=== PATIENT | male | born 1950 | race Two or more races ===

== ENCOUNTER 2017-09-14 17:37 | Emergency (ER) | payer BC, OTHER ==
[~2017-09-14] VITALS: Ht 162.6 cm; Wt 68.0 kg
[2017-09-14 17:45] VITALS: BP 165/91
[2017-09-14 18:27] LABS: BILIRUBIN, URINE NEGATIVE (NEGATIVE); COLOR,URINE RED; GLUCOSE, URINE (UA) 4+ (NEGATIVE); KETONES,URINE 1+ (NEGATIVE); LEUKOCYTE ESTERASE ,URINE 3+ (NEGATIVE); NITRITE,URINE NEGATIVE (NEGATIVE); PH,URINE 5 (4.5-8.0); PROTEIN,URINE 4+ (NEGATIVE); UROBILINOGEN,URINE NORMAL MG/DL (0.0-1.0)
[2017-09-14 18:30] LABS: APPEARANCE,URINE CLOUDY
[2017-09-14] MEDS ORDERED: Phenazopyridine 200mg tab ORAL ONE (19:00)
--- NOTE | 2017-09-14 19:12 | Emergency Room Report ---
History of Present Illness General Chief Complaint: Male Urogenital Problems Present Illness HPI 67-year-old male presents to the emergency department complaining of dysuria and scant hematuria since this morning. Patient denies fevers or chills. He denies low back pain. Patient denies penile discharge, swollen tender lymph nodes, testicular pain or swelling. Patient states he has a history of diabetes he takes both oral medications and insulin injections. Patient states that lately his sugar has been moderately high and that he typically is in the 200 range however he has gone up into the 300 range recently. He reports urinary frequency denies polydipsia. Denies hx of BPH. Patient denies abdominal pain, nausea, vomiting. Denies CP, Palpitations, LOC, AMS, dizziness, Changes in Vision, Sensation, paresthesias, or a sudden severe headache. (Gayla Uribe) Allergies: Coded Allergies: No Known Allergies (Verified , 09/15/17) Patient History Past Medical History: see triage record, DM Past Surgical History: none Pertinent Family History: none Reviewed Nursing Documentation: PMH: Agreed, PSxH: Agreed (Gayla Uribe) Nursing Documentation-PMH Hx Hypertension: Yes Hx Diabetes: Yes (Gayla Uribe.Viri) Review of Systems All Other Systems: negative except mentioned in HPI (Gayla Uribe) Physical Exam Vital Signs Date Time Temp Pulse Resp B/P (MAP) Pulse Ox O2 Delivery O2 Flow Rate FiO2 09/14/17 17:45 99.3 91 20 165/91 98 Room Air Sp02 EP Interpretation: reviewed, normal General Appearance: no apparent distress, alert, GCS 15, non-toxic Head: normocephalic, atraumatic ENT: hearing grossly normal, normal voice Neck: full range of motion Respiratory: lungs clear, normal breath sounds, speaking full sentences Cardiovascular #1: regular rate, rhythm Gastrointestinal: normal bowel sounds, non tender, soft Rectal: deferred Genitourinary: normal inspection, no CVA tenderness Musculoskeletal: back normal, gait/station normal, normal range of motion Neurologic: alert, oriented x3, responsive, motor strength/tone normal, sensory intact, normal gait, speech normal, grossly normal Psychiatric: judgement/insight normal Skin: normal color, no rash, warm/dry, well hydrated Lymphatic: no adenopathy (Gayla Uribe) Medical Decision Making PA Attestation Dr. bridges is my supervising Physician whom patient management has been discussed with. (Gayla Uribe) Medicare Attestation The history of Ibrahima Marina has been reviewed and management options for him have been examined and discussed by Bola Andersen. I have personally examined and interviewed the patient. (BOLA ANDERSEN M.D.) Diagnostic Impression: Primary Impression: UTI (urinary tract infection) Qualified Codes: N30.01 - Acute cystitis with hematuria Additional Impression: Elevated glucose level ER Course 67-year-old male presents to the emergency department complaining of dysuria and scant hematuria since this morning. Patient denies fevers or chills. He denies low back pain. Patient denies penile discharge, swollen tender lymph nodes, testicular pain or swelling. Patient states he has a history of diabetes he takes both oral medications and insulin injections. Patient states that lately his sugar has been moderately high and that he typically is in the 200 range however he has gone up into the 300 range recently. He reports urinary frequency denies polydipsia. Denies hx of BPH. Patient denies abdominal pain, nausea, vomiting. Denies CP, Palpitations, LOC, AMS, dizziness, Changes in Vision, Sensation, paresthesias, or a sudden severe headache. Ddx considered but are not limited to UTi , Pyelo, STI, Stone, Cystitis, urethritis just to name a few. Vital signs: are WNL, pt. is afebrile H&PE are most consistent with UTI ORDERS: - UA labs are attached --Positive of Infection. with glucosuria and proteinuria consistent with poorly controlled DM. - accuCheck: 265 ED INTERVENTIONS: -Pyridium PO DISCHARGE: At this time pt. is stable for d/c to home. Will provide printed patient care instructions, and any necessary prescriptions. Care plan and follow up instructions have been discussed with the patient prior to discharge. Labs Test 09/14/17 17:30 Urine Color Red Urine Appearance Cloudy Urine pH 5 (4.5-8.0) Urine Specific [place] 1.010 (1.005-1.035) Urine Protein 4+ (NEGATIVE) Urine Glucose (UA) 4+ (NEGATIVE) Urine Ketones 1+ (NEGATIVE) Urine Occult Blood 5+ (NEGATIVE) Urine Nitrite Negative (NEGATIVE) Urine Bilirubin Negative (NEGATIVE) Urine Urobilinogen Normal MG/DL (0.0-1.0) Urine Leukocyte Esterase 3+ (NEGATIVE) Urine RBC 10-15 /HPF (0 - 0) Urine WBC 5-10 /HPF (0 - 0) Urine Squamous Epithelial Cells None /LPF (NONE/OCC) Urine Bacteria Moderate /HPF (NONE) (Gayla Uribe) Last Vital Signs Date Time Temp Pulse Resp B/P (MAP) Pulse Ox O2 Delivery O2 Flow Rate FiO2 09/14/17 17:45 99.3 61 20 165/91 98 Room Air (Gayla Uribe) Disposition: HOME, SELF-CARE Condition: Stable Scripts Phenazopyridine Hcl* (PYRIDIUM*) 200 Mg Tablet 200 MG ORAL THREE TIMES A DAY for 3 Days, #9 TAB 0 Refills Prov: Gayla Uribe 09/14/17 Cephalexin* (KEFLEX*) 500 Mg Capsule 500 MG ORAL EVERY 12 HOURS for 7 Days, #14 CAP 0 Refills Prov: Gayla Uribe 09/14/17 Referrals: NON PHYSICIAN (PCP) Patient Instructions: Urinary Tract Infection Additional Instructions: Take medications as directed. Follow up with a Primary Care Provider in 3-5 days, even if your symptoms have resolved. TO EVALUATE YOU FOR YOUR CONSISTENTLY ELEVATED BLOOD GLUCOSE LEVELS Keep a log daily of your Sugar Measurements to take with you to your follow up appointment ! --Please review list of primary care clinics, if you do not already have a primary care provider Return sooner to ED if new symptoms occur, or current symptoms become worse. - Please note that this Emergency Department Report was dictated using [employer] hoop driver technology software, occasionally this can lead to erroneous entry secondary to interpretation by the dictation equipment. Gayla Uribe Sep 14, 2017 19:12 BOLA ANDERSEN M.D. Sep 15, 2017 12:44
[2017-09-14] MEDS ORDERED: CEPHALEXIN500 MG ORAL (19:13)
[2017-09-14] MEDS ORDERED: PHENAZOPYRIDIN200 MG ORAL (19:13)
== END 2017-09-14 19:20 | disposition home or self-care (01) ==
LOC: EMR 18:37 → MERGE 18:37 → EMR 19:20
DX: N39.0 Urinary tract infection, site not specified (principal); E11.65 Type 2 diabetes mellitus with hyperglycemia; R31.9 Hematuria, unspecified; I10 Essential (primary) hypertension
CPT/HCPCS: 81003; 82962; 87086; 87181; 99283

== ENCOUNTER 2018-01-05 13:23 | Inpatient (IN) | payer BC, OTHER ==
[~2018-01-05] VITALS: Ht 162.6 cm; Wt 78.0 kg
[~2018-01-05 13:23] MED LIST: CEPHALEXIN500 MG ORAL; PHENAZOPYRIDIN200 MG ORAL
[2018-01-05] MEDS ORDERED: FLOMAX0.4 MG ORAL (13:51)
[2018-01-05] MEDS ORDERED: ASPIRIN81 MG ORAL (13:51)
[2018-01-05] MEDS ORDERED: DITROPAN10 MG ORAL (13:51)
[2018-01-05] MEDS ORDERED: VITAMIN D31000 UNI4 PO (13:51)
[2018-01-05] MEDS ORDERED: ATENOLOL50 MG ORAL (13:51)
[2018-01-05] MEDS ORDERED: LYRICA75 M1 ORAL (13:53)
[2018-01-05] MEDS ORDERED: METFORMIN HCL1000 M1 ORAL (13:53)
[2018-01-05] MEDS ORDERED: TUMS500 MG ORAL (13:53)
[2018-01-05] MEDS ORDERED: ISORDIL40 MG ORAL (13:53)
[2018-01-05] MEDS ORDERED: ATORVASTATIN CA20 MG ORAL (13:53)
[2018-01-05] MEDS ORDERED: JANUVIA25 MG ORAL (13:54)
[2018-01-05] MEDS ORDERED: AMLODIPINE BESYL5 MG ORAL (13:54)
[2018-01-05] MEDS ORDERED: LISINOPRIL20 MG ORAL (13:54)
[2018-01-05] MEDS ORDERED: LUMIGAN2.5 ML BOTH EYES (13:56)
[2018-01-05] MEDS ORDERED: TRUSOPT10 ML BOTH EYES (13:56)
[2018-01-05] MEDS ORDERED: OMEGA 3 1,0001 EACH PO (13:56)
[2018-01-05] MEDS ORDERED: AZELASTINE HCL6 ML OP (13:56)
[2018-01-05] MEDS ORDERED: Sodium Chloride 500ML 500 ML IV ONE (14:07)
[2018-01-05] MEDS ORDERED: Acetaminophen 500mg (ES) tab ORAL ONE (14:15)
[2018-01-05 14:27] VITALS: BP 137/51
--- NOTE | 2018-01-05 14:27 | Diagnostic Imaging Report ---
Indication: Cough Comparison: None A single view chest radiograph was obtained. Findings: Minimal atelectasis present at the lung bases. Heart size is normal. Lung volumes are slightly low. The bones appear mildly osteopenic. IMPRESSION: Mild basal atelectasis
[2018-01-05 14:28] LABS: HEMATOCRIT 34.3 % (42.0-52.0); HEMOGLOBIN 11.5 G/DL (14.2-18.0); MEAN CORPUSCULAR VOLUME 84 FL (80-99); PLATELET COUNT 234 K/UL (150-450); RED CELL DISTRIBUTION WIDTH 12.4 % (11.6-14.8); WHITE BLOOD COUNT 10.6 K/UL (4.8-10.8)
[2018-01-05 14:44] LABS: ANION GAP 9 mmol/L (5-15); BLOOD UREA NITROGEN 22 mg/dL (7-18); CALCIUM 8.9 MG/DL (8.5-10.1); CARBON DIOXIDE 25 MMOL/L (21-32); CHLORIDE 100 MMOL/L (98-107); CREATININE 1.1 MG/DL (0.55-1.30); POTASSIUM 3.3 MMOL/L (3.5-5.1); SODIUM 134 MMOL/L (136-145)
[2018-01-05 14:58] LABS: ALANINE AMINOTRANSFERASE 40 U/L (12-78); ALBUMIN 2.5 G/DL (3.4-5.0); ALBUMIN/GLOBULIN RATIO 0.5 (1.0-2.7); ALKALINE PHOSPHATASE 191 U/L (46-116); ASPARTATE AMINO TRANSFERASE 43 U/L (15-37); BILIRUBIN,TOTAL 1.4 MG/DL (0.2-1.0); CKMB 3.9 NG/ML (0.0-3.6); CREATINE KINASE 135 U/L (26-308)
[2018-01-05 15:40] LABS: INR 1.2 (0.9-1.1)
[2018-01-05 15:44] LABS: BILIRUBIN,DIRECT 0.5 MG/DL (0.0-0.3)
--- NOTE | 2018-01-05 15:51 | Emergency Room Report ---
History of Present Illness General Chief Complaint: Fever Source: Patient Present Illness HPI 67-year-old male presents ED for evaluation. Patient complaining of weakness, chills, cough, shortness of breath 1 week. Patient febrile in triage. Denies any chest pain. Patient states that he also had a procedure done by urologist a few weeks ago as outpatient. They put a camera "up there". States that he has had pain with urination since. Denies flank pain. Denies nausea or vomiting. No other aggravating relieving factors. Denies any other associated symptoms Allergies: Coded Allergies: No Known Allergies (Verified , 09/15/17) Patient History Past Medical History: DM Past Surgical History: none Pertinent Family History: none Social History: Denies: smoking, alcohol use, drug use Immunizations: UTD Reviewed Nursing Documentation: PMH: Agreed; PSxH: Agreed Nursing Documentation-PMH Past Medical History: No History, Except For Hx Cardiac Problems: No Hx Hypertension: Yes Hx Pacemaker: No Hx Asthma: No Hx COPD: No Hx Diabetes: Yes Hx Cancer: No Hx Gastrointestinal Problems: No Hx Dialysis: No Hx Neurological Problems: No Hx Cerebrovascular Accident: No Hx Seizures: No Review of Systems All Other Systems: negative except mentioned in HPI Physical Exam Vital Signs Date Time Temp Pulse Resp B/P (MAP) Pulse Ox O2 Delivery O2 Flow Rate FiO2 01/05/18 13:42 102.2 81 16 115/61 89 Room Air 102.2 01/05/18 14:27 2.0 Sp02 EP Interpretation: reviewed, normal General Appearance: no apparent distress, alert, GCS 15, non-toxic Head: normocephalic, atraumatic Eyes: bilateral eye normal inspection, bilateral eye PERRL ENT: hearing grossly normal, normal pharynx, no angioedema, normal voice Neck: full range of motion, supple/symm/no masses Respiratory: chest non-tender, normal breath sounds, crackles, speaking full sentences Cardiovascular #1: regular rate, rhythm, no edema Cardiovascular #2: 2+ carotid (R), 2+ carotid (L), 2+ radial (R), 2+ radial (L) , 2+ dorsalis pedis (R), 2+ dorsalis pedis (L) Gastrointestinal: normal bowel sounds, non tender, soft, non-distended, no guarding, no rebound Rectal: deferred Genitourinary: normal inspection, no CVA tenderness Musculoskeletal: back normal, gait/station normal, normal range of motion, non- tender Neurologic: alert, oriented x3, responsive, motor strength/tone normal, sensory intact, speech normal Psychiatric: judgement/insight normal, memory normal, mood/affect normal, no suicidal/homicidal ideation Reflexes: 3+ bicep (R), 3+ bicep (L), 3+ tricep (R), 3+ tricep (L), 3+ knee (R) , 3+ knee (L) Skin: normal color, no rash, warm/dry, well hydrated Lymphatic: no adenopathy Procedures Critical Care Time Critical Care Time i. I feel this is a highly complex case requiring extensive working including EKG/Rhythm strip, Xray/CT/US, Blood/urine lab work, repeat exams while in ED, and administration of strong opiates/narcotics for pain control, admission to hospital or close patient follow up. Total time: 30 min bedside evaluation and treatment excludes procedures (EKG). Reason for critical care: SOB, elevated troponin Possible complications: hypotension, hypertension, FL, shock, arrhythmias, metabolic acidosis, end organ damage, respiratory failure. Interventions: labs, ivfs, tylenol, ekg, cxr. Course: patient here with fever, sob. cxr shows ateletasis. trop > 2. BNP elevated. given aspirin Consultations: nursing staff, EMS, family Performed by: Dr Andersen Tolerated well condition = serious j. because of unstable vital signs this patient had a condition that could potentially threaten life or limb. I feel this is a critical patient who required my full attention while patient was considered critical. Total Critical Care Time excluding procedures was greater than 35 minutes Medical Decision Making Diagnostic Impression: Primary Impression: Fever Qualified Codes: R50.9 - Fever, unspecified Additional Impressions: SOB (shortness of breath) Elevated troponin ER Course Hospital Course 67-year-old male presents ED complaining of fever, shortness of breath. Painful urination Differential diagnoses include: FL/unstable angina, contusion, muscle strain, PTX, rib fracture Clinical course Patient placed on stretcher. on direct marketing analyst. After initial history and physical I ordered labs, EKG, chest x-ray, UA labs reviewed- no leukocytosis, hb/hct stable,electrolyets ok, trop 2.4, BNP elevated EKG - NSR, no acute ischemic changes inteprreted by me Chest x-ray- atelectasis Patient denies any chest pain. Patient unable to provide urine. Schroeder catheter placed Given aspirin and Plavix. Given antibiotics. Case discussed with Dr. Priest and he agreed to accept the patient to his service for further care and support I. I feel this is a highly complex case requiring extensive working including EKG/Rhythm strip, Xray/CT/US, Blood/urine lab work, repeat exams while in ED, and administration of strong opiates/narcotics for pain control, admission to hospital or close patient follow up. Diagnosis - fever, SOB, elevated troponin admitted to telemetry in serious condition Labs Test 01/05/18 14:14 01/05/18 14:15 01/05/18 14:34 White Blood Count 10.6 K/UL (4.8-10.8) Red Blood Count 4.10 M/UL (4.70-6.10) Hemoglobin 11.5 G/DL (14.2-18.0) Hematocrit 34.3 % (42.0-52.0) Mean Corpuscular Volume 84 FL (80-99) Mean Corpuscular Hemoglobin 28.0 PG (27.0-31.0) Mean Corpuscular Hemoglobin Concent 33.4 G/DL (32.0-36.0) Red Cell Distribution Width 12.4 % (11.6-14.8) Platelet Count 234 K/UL (150-450) Mean Platelet Volume 7.0 FL (6.5-10.1) Neutrophils (%) (Auto) % (45.0-75.0) Lymphocytes (%) (Auto) % (20.0-45.0) Monocytes (%) (Auto) % (1.0-10.0) Eosinophils (%) (Auto) % (0.0-3.0) Basophils (%) (Auto) % (0.0-2.0) Differential Total Cells Counted 100 Neutrophils % (Manual) 86 % (45-75) Lymphocytes % (Manual) 5 % (20-45) Monocytes % (Manual) 3 % (1-10) Eosinophils % (Manual) 0 % (0-3) Basophils % (Manual) 0 % (0-2) Band Neutrophils 6 % (0-8) Platelet Estimate Adequate Platelet Morphology Normal Red Blood Cell Morphology Normal Sodium Level 134 MMOL/L (136-145) Potassium Level 3.3 MMOL/L (3.5-5.1) Chloride Level 100 MMOL/L (98-107) Carbon Dioxide Level 25 MMOL/L (21-32) Anion Gap 9 mmol/L (5-15) Blood Urea Nitrogen 22 mg/dL (7-18) Creatinine 1.1 MG/DL (0.55-1.30) Estimat Glomerular Filtration Rate > 60 mL/min (>60) Glucose Level 166 MG/DL (74-106) Calcium Level 8.9 MG/DL (8.5-10.1) Total Bilirubin 1.4 MG/DL (0.2-1.0) Direct Bilirubin 0.5 MG/DL (0.0-0.3) Aspartate Amino Transf (AST/SGOT) 43 U/L (15-37) Alanine Aminotransferase (ALT/SGPT) 40 U/L (12-78) Alkaline Phosphatase 191 U/L (46-116) Total Creatine Kinase 135 U/L (26-308) Creatine Kinase MB 3.9 NG/ML (0.0-3.6) Creatine Kinase MB Relative Index 2.8 Troponin I 2.492 ng/mL (0.000-0.056) Pro-B-Type Natriuretic Peptide 3404 pg/mL (0-125) Total Protein 7.2 G/DL (6.4-8.2) Albumin 2.5 G/DL (3.4-5.0) Globulin 4.7 g/dL Albumin/Globulin Ratio 0.5 (1.0-2.7) Prothrombin Time 12.3 SEC (9.30-11.50) Prothromb Time International Ratio 1.2 (0.9-1.1) Activated Partial Thromboplast Time 31 SEC (23-33) Lactic Acid Level 2.40 mmol/L (0.66-2.22) EKG Diagnostic Results Rate: normal Rhythm: NSR ST Segments: no acute changes ASA given to the pt in ED: Yes Rhythm Strip Diag. Results EP Interpretation: yes Rhythm: NSR, no PVC's, no ectopy Chest X-Ray Diagnostic Results Chest X-Ray Diagnostic Results : Chest X-Ray Ordered: Yes # of Views/Limited/Complete: 1 View Indication: Shortness of Breath EP Interpretation: Yes Interpretation: no consolidation, no pneumothorax, no acute cardiopulmonary disease, other - bibasilar atelectasis Impression: Other - atelectasis Electronically Signed by: Electronically signed by Bola Andersen MD Last Vital Signs Date Time Temp Pulse Resp B/P (MAP) Pulse Ox O2 Delivery O2 Flow Rate FiO2 01/05/18 14:58 101.8 01/05/18 14:27 79 24 137/51 96 Nasal Cannula 2.0 Status: improved Disposition: ADMITTED INPATIENT Condition: Serious Bola Andersen MD January 05, 2018 15:51
[2018-01-05 17:02] LABS: APPEARANCE,URINE CLEAR; BILIRUBIN, URINE NEGATIVE (NEGATIVE); GLUCOSE, URINE (UA) 4+ (NEGATIVE); KETONES,URINE 1+ (NEGATIVE); LEUKOCYTE ESTERASE ,URINE 1+ (NEGATIVE); NITRITE,URINE NEGATIVE (NEGATIVE); PH,URINE 5 (4.5-8.0); PROTEIN,URINE 2+ (NEGATIVE); UROBILINOGEN,URINE 4 MG/DL (0.0-1.0)
[2018-01-05] MEDS ORDERED: Heparin 25,000u/D5W 500ml 500 ML IV SCH (17:15)
[2018-01-05 17:22] LABS: COLOR,URINE YELLOW
[2018-01-05] MEDS ORDERED: Oxybutynin 5mg tab ORAL SCH (18:00)
[2018-01-05] MEDS ORDERED: Dorzolamide 2% 10ml Btl BOTH EYES SCH (18:00)
[2018-01-05] MEDS ORDERED: metFORMIN 500mg tab ORAL SCH (18:00)
[2018-01-05 18:02] VITALS: BP 112/51
[2018-01-05 18:44] VITALS: BP 149/87
--- NOTE | 2018-01-05 18:45 | History and Physical Report ---
DATE OF ADMISSION: 01/05/2018 CHIEF COMPLAINT: Short of breath and fever. HISTORY OF PRESENT ILLNESS: The patient is a 67-year-old man who came to the emergency department from home. Apparently he had a cystoscopy three days ago and has had dysuria since then. Yesterday he was feeling fine but today he developed shortness of breath in the morning that lasted several hours, this is associated with shaking chills, fever, vomiting and profuse diaphoresis. He came to the emergency department and was evaluated. He was found to have a negative x-ray and normal white blood count but temperature 102 and elevated troponin. He has no chest pain or history of cardiac disease. PAST MEDICAL HISTORY: Diabetes, hypertension,hyperlipidemia, BPH, neuropathy, gallstones with history of pancreatitis. ALLERGIES: None. MEDICATIONS: Include insulin, amlodipine, aspirin, atenolol, atorvastatin, Keflex, vitamins, eyedrops for glaucoma, Isordil, lisinopril, metformin, oxybutynin, Pyridium, Lyrica, Januvia, Flomax. REVIEW OF SYSTEMS: He has no headaches or seizures. No visual difficulty. No chest pain. He had shortness of breath. There is slight dry cough. He has no diarrhea but has nausea and vomiting. He has no knowledge of any kidney or liver disorder. He does have difficulty urinating. There is no ankle edema. PHYSICAL EXAMINATION: GENERAL: The patient is alert and responds appropriately. He is overweight. VITAL SIGNS: Temperature was 102.2 and came down to 101.1 and now 99.4. Other vital signs are normal. He is not tachycardic. HEENT: Head is normocephalic. SKIN: Profusely diaphoretic. NECK: No jugular venous distention. CHEST: Clear CARDIAC: Rhythm is regular. ABDOMEN: Soft and nontender. Liver and spleen not enlarged. EXTREMITIES: No clubbing, cyanosis, or edema. LABORATORY STUDIES: Showed urinalysis is pending (obtained by in- and-out catheter as he could not void). White count is 10,600, hemoglobin 11.5. Sodium 134, potassium 3.3, creatinine 1.1, blood sugar 166. Lactic elevated at 2.4. Bilirubin elevated 1.4. Alkaline phosphatase 191. Troponin is elevated at 2.5. Natriuretic peptide elevated at 3404. Coagulation is normal. Chest x-rays showed minimal atelectasis. EKG shows no ST or T-wave changes and no Q-waves with sinus rhythm noted IMPRESSION: 1. Urinary sepsis. 2. Acute myocardial infarction. 3. Diabetes. 4. Hypertension. 5. Hyperlipidemia. PLAN: The patient will be admitted to tele telemetry. Cardiology and Infectious Diseases have been called. Antibiotics and fluids will be given. He has been given aspirin and Plavix already. Cadence Priest M.D. DR: Laure JOB#: [id number] CC: James Domingo M.D.; Fax#: [phone] CADENCE PRIEST M.D.; FAX#: [phone]
--- NOTE | 2018-01-05 19:00 | Infectious Diseases Prog Note ---
Assessment/Plan Assessment/Plan Full consult dictated: A) 1) sepsis, fevers, chills, sweats, likely uti/pyelonephritis, rule out other , sob, abnormal LFT's, ? viral, dysuria, elevated lactic acid 2) s/p recent cystoscopy 3) pmh noted 4) allergies - negative P) 1) zosyn and vancomycin 2) check cultures, labs, chest x-ray, abdominal ultrasound 3) d/w Dr. Priest 4) thank you Subjective Allergies: Coded Allergies: No Known Allergies (Verified , 09/15/17) Objective Vital Signs Last 24 Hour Vital Signs Date Time Temp Pulse Resp B/P (MAP) Pulse Ox O2 Delivery O2 Flow Rate FiO2 01/05/18 18:44 96.4 62 18 149/87 94 Room Air 96.4 01/05/18 18:02 95.8 64 19 112/51 96 Nasal Cannula 2.0 95.8 01/05/18 16:10 99.4 01/05/18 14:58 101.8 01/05/18 14:27 101.8 79 24 137/51 96 Nasal Cannula 2.0 101.8 01/05/18 13:42 102.2 81 16 115/61 89 Room Air 102.2 Height (Feet): 5 Height (Inches): 4.00 Weight (Pounds): 160 Microbiology Date/Time Source Procedure Growth Status 01/05/18 14:30 Nasal Nares Influenza Types A,B Antigen ([facility]) - Final Complete Laboratory Tests Test 01/05/18 14:14 01/05/18 14:15 01/05/18 14:34 01/05/18 16:30 White Blood Count 10.6 K/UL (4.8-10.8) Red Blood Count 4.10 M/UL (4.70-6.10) L Hemoglobin 11.5 G/DL (14.2-18.0) L Hematocrit 34.3 % (42.0-52.0) L Mean Corpuscular Volume 84 FL (80-99) Mean Corpuscular Hemoglobin 28.0 PG (27.0-31.0) Mean Corpuscular Hemoglobin Concent 33.4 G/DL (32.0-36.0) Red Cell Distribution Width 12.4 % (11.6-14.8) Platelet Count 234 K/UL (150-450) Mean Platelet Volume 7.0 FL (6.5-10.1) Neutrophils (%) (Auto) % (45.0-75.0) Lymphocytes (%) (Auto) % (20.0-45.0) Monocytes (%) (Auto) % (1.0-10.0) Eosinophils (%) (Auto) % (0.0-3.0) Basophils (%) (Auto) % (0.0-2.0) Differential Total Cells Counted 100 Neutrophils % (Manual) 86 % (45-75) H Lymphocytes % (Manual) 5 % (20-45) L Monocytes % (Manual) 3 % (1-10) Eosinophils % (Manual) 0 % (0-3) Basophils % (Manual) 0 % (0-2) Band Neutrophils 6 % (0-8) Platelet Estimate Adequate Platelet Morphology Normal Red Blood Cell Morphology Normal Sodium Level 134 MMOL/L (136-145) L Potassium Level 3.3 MMOL/L (3.5-5.1) L Chloride Level 100 MMOL/L (98-107) Carbon Dioxide Level 25 MMOL/L (21-32) Anion Gap 9 mmol/L (5-15) Blood Urea Nitrogen 22 mg/dL (7-18) H Creatinine 1.1 MG/DL (0.55-1.30) Estimat Glomerular Filtration Rate > 60 mL/min (>60) Glucose Level 166 MG/DL (74-106) H Calcium Level 8.9 MG/DL (8.5-10.1) Total Bilirubin 1.4 MG/DL (0.2-1.0) H Direct Bilirubin 0.5 MG/DL (0.0-0.3) H Aspartate Amino Transf (AST/SGOT) 43 U/L (15-37) H Alanine Aminotransferase (ALT/SGPT) 40 U/L (12-78) Alkaline Phosphatase 191 U/L (46-116) H Total Creatine Kinase 135 U/L (26-308) Creatine Kinase MB 3.9 NG/ML (0.0-3.6) H Creatine Kinase MB Relative Index 2.8 Troponin I 2.492 ng/mL (0.000-0.056) Pro-B-Type Natriuretic Peptide 3404 pg/mL (0-125) H Total Protein 7.2 G/DL (6.4-8.2) Albumin 2.5 G/DL (3.4-5.0) L Globulin 4.7 g/dL Albumin/Globulin Ratio 0.5 (1.0-2.7) L Prothrombin Time 12.3 SEC (9.30-11.50) H Prothromb Time International Ratio 1.2 (0.9-1.1) H Activated Partial Thromboplast Time 31 SEC (23-33) Lactic Acid Level 2.40 mmol/L (0.66-2.22) H Urine Color Yellow Urine Appearance Clear Urine pH 5 (4.5-8.0) Urine Specific [place] 1.015 (1.005-1.035) Urine Protein 2+ (NEGATIVE) H Urine Glucose (UA) 4+ (NEGATIVE) H Urine Ketones 1+ (NEGATIVE) H Urine Occult Blood 1+ (NEGATIVE) H Urine Nitrite Negative (NEGATIVE) Urine Bilirubin Negative (NEGATIVE) Urine Urobilinogen 4 MG/DL (0.0-1.0) H Urine Leukocyte Esterase 1+ (NEGATIVE) H Urine RBC 2-4 /HPF (0 - 0) H Urine WBC 2-4 /HPF (0 - 0) Urine Squamous Epithelial Cells Occasional /LPF Urine Amorphous Sediment Few /LPF (NONE) H Urine Bacteria Occasional /HPF (NONE) Test 01/05/18 18:00 Lactic Acid Level 1.10 mmol/L (0.66-2.22) Current Medications Medications (Trade) Dose Ordered Sig/Tyrell Route PRN Reason Start Time Stop Time Status Last Admin Dose Admin Amlodipine Besylate (Norvasc) 5 mg DAILY ORAL 01/06/18 09:00 02/05/18 08:59 UNV Aspirin (ASA) 81 mg DAILY ORAL 01/06/18 09:00 02/05/18 08:59 UNV Atenolol (Tenormin) 50 mg DAILY ORAL 01/06/18 09:00 02/05/18 08:59 UNV Atorvastatin Calcium (Lipitor) 20 mg BEDTIME ORAL 01/05/18 21:00 02/04/18 20:59 UNV Calcium Carbonate (Tums) 600 mg BID PRN ORAL HEARTBURN 01/05/18 17:15 02/04/18 17:14 UNV Dextrose (Dextrose 50%) 25 ml STAT PRN IV Hypoglycemia 01/05/18 17:15 02/04/18 17:14 UNV Dextrose (Dextrose 50%) 25 ml STAT PRN IV Hypoglycemia 01/05/18 17:15 02/04/18 17:14 UNV Dextrose (Dextrose 50%) 50 ml STAT PRN IV Hypoglycemia 01/05/18 17:15 02/04/18 17:14 UNV Dextrose (Dextrose 50%) 50 ml STAT PRN IV Hypoglycemia 01/05/18 17:15 02/04/18 17:14 UNV Dorzolamide HCl (Trusopt) 1 drop TID BOTH EYES 01/05/18 18:00 02/04/18 17:59 UNV Famotidine (Pepcid) 40 mg BEDTIME ORAL 01/05/18 21:00 02/04/18 20:59 UNV Lisinopril (Prinivil) 40 mg DAILY ORAL 01/06/18 09:00 02/05/18 08:59 UNV Metformin HCl (Glucophage) 1,000 mg BID ORAL 01/05/18 18:00 02/04/18 17:59 UNV Ondansetron HCl (Zofran) 4 mg Q6H PRN IVP Nausea & Vomiting 01/05/18 17:15 02/04/18 17:14 UNV Oxybutynin Chloride (Ditropan) 5 mg BID ORAL 01/05/18 18:00 02/04/18 17:59 UNV Potassium Chloride 20 meq/ Sodium Chloride 1,010 ml @ 100 mls/hr Q10H6M IVLG 01/05/18 18:09 02/04/18 18:08 UNV Pregabalin (Lyrica) 150 mg DAILY ORAL 01/06/18 09:00 02/05/18 08:59 UNV Sitagliptin Phosphate (Januvia) 50 mg DAILY ORAL 01/06/18 09:00 02/05/18 08:59 UNV Tamsulosin HCl (Flomax) 0.4 mg DAILY ORAL 01/06/18 09:00 02/05/18 08:59 UNV TRES AL January 05, 2018 19:00
[2018-01-05] MEDS ORDERED: Tums 500mg ORAL PRN (19:04)
[2018-01-05 20:00] VITALS: BP 154/78
[2018-01-05] MEDS ORDERED: Vancomycin 1250mg/D5W 250ml IVPB SCH (20:00)
[2018-01-05 20:57] LABS: AMYLASE 17 U/L (25-115)
--- NOTE | 2018-01-05 21:01 | Consultation ---
DATE OF CONSULTATION: 01/05/2018 INFECTIOUS DISEASE CONSULTATION CONSULTING PHYSICIAN: James Domingo M.D. REFERRING PHYSICIAN: Shreyas Priest M.D. REASON FOR CONSULTATION: Sepsis, urinary tract infection, pyelonephritis, and fevers. CHIEF COMPLAINT: The patient's chief complaint coming in to the hospital is elevated troponin and shortness of breath. HISTORY OF PRESENT ILLNESS: This is a 67-year-old male, who comes in to [facility] and is febrile. Temperature is as high as 102.2 with hypoxia. The patient had a recent cystoscopy and has had dysuria. There is a concern for urinary tract infection with sepsis. The patient was placed on Zosyn and vancomycin pending cultures. He was given Levaquin in the emergency room. Case was discussed with Dr. Priest. The patient will be continued on vancomycin and Zosyn pending cultures. Blood and urine cultures have been ordered. The patient also had abnormal LFTs and we will get an abdominal ultrasound. He does have history of pancreatitis. The patient also has elevated lactic acid consistent with possible sepsis. MAR was noted. Orders were noted. Notes and records were reviewed. PAST MEDICAL HISTORY: The patient's past medical history is obtained from the records. He has a past medical history of diabetes mellitus, hypertension, hyperlipidemia, BPH, history of neuropathy, and gallstones with history of pancreatitis. He had recent cystoscopy two to three days ago and has had dysuria since. MEDICATIONS: Upon reviewing the MAR, he is on the following medications. He is on Norvasc, amlodipine, aspirin, Tenormin, Prinivil, Lyrica, Januvia, Flomax, Lipitor, Pepcid, metformin, potassium, Trusopt, Ditropan, and Tums. ALLERGIES: No known drug allergies. SOCIAL HISTORY: Negative for smoking, alcohol, or drug abuse. FAMILY HISTORY: Noncontributory. REVIEW OF SYSTEMS: CONSTITUTIONAL: He has fever, chills, and sweats. HEAD AND NECK: No head pain, neck pain, neck stiffness, or change in vision. CARDIAC: No chest pain or palpitations. GASTROINTESTINAL: No nausea, vomiting, or diarrhea. No significant abdominal pain at this time. Some back pain though, however, bilaterally. Unclear if this is CVA tenderness versus back pain. Back pain, otherwise, +5. GENITOURINARY: He came in with dysuria. PULMONARY: He came in with shortness of breath. No significant congestion, hemoptysis, or secretions at this time. SKIN: No rash or itching. EXTREMITIES: No extremity pain. NEUROLOGIC: No seizures. I discussed with the patient's family member at the bedside, who translated for me also. PHYSICAL EXAMINATION: VITAL SIGNS: Temperature max 102.2, currently temperature is 96.4, pulse rate 62, respiratory rate 18, blood pressure 149/87, and saturation 94%. Initial saturation was 89% on room air. Respiratory rate was as high as 24. GENERAL: Alert and responsive. He has generalized fatigue noted, but responsive and alert. HEAD AND NECK: Oral exam, no thrush. Eye exam, no icterus. Neck is supple. No JVD. Normocephalic. No facial droop. LUNGS: Clear bilaterally. No rhonchi or rales. Decreased breath sounds. HEART: Regular. No gallop or murmur. ABDOMEN: Soft. Positive bowel sounds. Nontender. No rebound. Maybe some back pain. SKIN: No rash. MUSCULOSKELETAL: No effusion. Legs are without cellulitis. PERIPHERAL VASCULAR: No cyanosis or gangrene. LINES: Line site is without phlebitis. GENITOURINARY: No CVA tenderness. NEUROLOGIC: Intact. LABORATORY DATA: Laboratory data is as follows, UA had 1+ leukocyte esterase, 2 to 4 white blood cells, and occasional bacteria. Urine culture and blood cultures are pending. Creatinine 1.1. Total bilirubin 1.4. Alkaline phosphatase 191. CK-MB is 2.9. Total bilirubin 1.4. AST 43. I have ordered amylase and lipase. Followup laboratories have been ordered for . White count 10.6 and hemoglobin 11.5. Cultures pending. Chest x-ray with mild basal atelectasis at this point. Lactic acid level was 2.4, elevated ASSESSMENT AND PLAN: 1. The patient looks like septic, fever, chills, sweats, elevated respiratory rate, and temperature of 102. Most likely, this is urinary related urinary tract infection with sepsis as he does have dysuria on recent cystoscopy. Rule out bacteremia. The patient does have shortness of breath. Chest x-ray shows atelectasis. The patient has history of gallstone pancreatitis. We will check abdominal ultrasound. He does have abnormal LFTs, rule out cholecystitis. Continue with Zosyn and vancomycin. Check ultrasound, chest x-ray, blood cultures, urine cultures, amylase, lipase, and follow CBC and CMP. Continue Zosyn and vancomycin for now pending cultures. 2. Status post cystoscopy. 3. Diabetes. 4. Hypertension. 5. Hyperlipidemia. 6. Benign prostatic hypertrophy. 7. Neuropathy. 8. History of gallstone pancreatitis. 9. Allergies are negative. 10. Family history is noncontributory. 11. Social history is negative. 12. MAR was noted. 13. Case was discussed with RN. 14. Case was discussed with Dr. Priest. 15. Case was discussed with the patient and family member. 16. Notes and records were reviewed. 17. MAR was noted. 18. Orders were entered. James Domingo M.D. DR: PORSCHE JOB#: [id number] CC:
[2018-01-05] MEDS ORDERED: Metoprolol Tartrate 10 MG in D5W 55 ML IVPB ONE (22:45)
[2018-01-06] VITALS (44 sets, daily range): BP systolic 55–188; BP diastolic 25–158
--- NOTE | 2018-01-06 | Consultation ---
DATE OF CONSULTATION: 01/05/2018 CARDIOLOGY CONSULTATION CONSULTING PHYSICIAN: Yosef England M.D. REQUESTING PHYSICIAN: Shreyas Priest M.D. REASON FOR CONSULTATION: Elevated troponin level. HISTORY OF PRESENT ILLNESS: This 67-year-old, [place] male came into the emergency room with fevers as high as 102 and associated with hypoxia. He had a recent cystoscopy and since has had dysuria, hesitancy, and abdominal pain. He has not had any chest pain, but has had some shortness of breath associated with his abdominal distention. The patient's initial troponin level in the emergency room was elevated above 2.5. His EKG revealed sinus rhythm with nonspecific ST-T changes and possible septal infarction of indeterminate age, although lead misplacement was noted on the initial EKG. The patient has multiple risk factors for premature coronary artery disease. PAST MEDICAL HISTORY: Type 2 diabetes mellitus, diabetic neuropathy, chronic kidney disease, prostatic hypertrophy, recent cystoscopy, cholelithiasis, history of pancreatitis, hyperlipidemia, and hypertension. MEDICATIONS: Prior to admission reviewed and reconciled. ALLERGIES: None known. SOCIAL HISTORY: Negative for smoking, alcohol, or substance abuse. FAMILY HISTORY: Not remarkable. REVIEW OF SYSTEMS: He has had fevers, chills, and sweats. No headache. No loss of vision. No neck stiffness. No hearing loss. No history of blood clotting. No history of asthma. No history of seizure or stroke. He does have diabetes. There is no history of thyroid disorder. He is on anti-lipid drugs. He does have neuropathy. He has not had any change in bowel habits, but has not had a bowel movement since yesterday. He is nauseated and vomiting now and has the dysuria as described. He has had a prior history of biliary pancreatitis, but he denies any postprandial pain at this time. PHYSICAL EXAMINATION: VITAL SIGNS: Blood pressure 149/87, pulse 94, respiratory rate 18, and afebrile. HEENT: Conjunctivae pink. Sclerae are anicteric. Oropharynx clear. NECK: Supple. Jugular venous pressure normal. LUNGS: Clear. CARDIAC: Regular rhythm and rate. Normal S1 and S2 with a fourth heart sound. No murmur. ABDOMEN: Distended. Diffusely tender. No guarding or rebound. No skin changes. NEUROLOGIC: Nonfocal. EXTREMITIES: No clubbing, cyanosis, or edema. LABORATORY AND DIAGNOSTIC DATA: Lactic acid 2.4. Pancreatic enzymes are normal. White count 10.6 and hemoglobin 11.5. Urinalysis with 2-4 white cells. Albumin 2.5. Sodium 134, potassium 3.3, BUN 23, and creatinine 1.1. IMPRESSION: 1. Probable sepsis due to urinary tract infection. 2. Secondary sinus tachycardia. 3. Acute myocardial ischemia and probable non-ST elevation infarction. 4. Type 2 diabetes mellitus. 5. History of hyperlipidemia, on statin therapy. 6. Hypertensive heart disease with labile blood pressure. 7. Critical and guarded. 8. Hypokalemia. PLAN: 1. Cardiac monitoring. 2. Additional beta-blockade. 3. Antibiotics per Infectious Disease security system sales consultant. 4. Potassium replacement. 5. Check magnesium. 6. Insulin titration. 7. Hold parameters on amlodipine for low range blood pressure. 8. Continue statin therapy. 9. Anti-platelet therapy with aspirin. 10. Repeat EKG. 11. Avoid IV heparin unless acute EKG changes are noted. Yosef England M.D. DR: TRESSA JOB#: [id number] CC:
[2018-01-06] MEDS ORDERED: NOVOLOG100 UNIT/5 (02:19)
--- NOTE | 2018-01-06 03:37 | Emergency Room Report ---
History of Present Illness General Chief Complaint: Fever Present Illness HPI This is a 67-year-old male with history of hypertension and diabetes. He was admitted here for non-STEMI and shortness of breath. I responded to a CODE BLUE while he was in telemetry. Per nursing staff, he became bradycardic and then asystolic. He has no pulse so CPR was initiated. On my arrival, CPR was in progress. He did not have a line because he just pulled it out prior to his code. IV line was established and patient was given 1 mg of epinephrine. I proceeded to intubate the patient. After the second milligram of epinephrine, patient had spontaneous return of pulse. Patient was then transferred to the ICU. Please see the code sheet for full information on drugs given. Allergies: Coded Allergies: No Known Allergies (Verified , 09/15/17) Nursing Documentation-[facility] Past Medical History: No History, Except For Hx Cardiac Problems: No Hx Hypertension: Yes Hx Pacemaker: No Hx Asthma: No Hx COPD: No Hx Diabetes: Yes Hx Cancer: No Hx Gastrointestinal Problems: No Hx Dialysis: No Hx Neurological Problems: No Hx Cerebrovascular Accident: No Hx Seizures: No Review of Systems Respiratory: Reports: shortness of breath All Other Systems: limited - secondary to code Physical Exam Vital Signs Date Time Temp Pulse Resp B/P (MAP) Pulse Ox O2 Delivery O2 Flow Rate FiO2 01/05/18 13:42 102.2 81 16 115/61 89 Room Air 102.2 01/05/18 14:27 2.0 01/06/18 02:56 100 General Appearance: severe distress, other - unresponsive ENT: other - frothy secretion in oropharynx Neck: supple Respiratory: rales - no spontaneous breathing. Good air movement with bag- valve-mask Cardiovascular #1: other - no spontaneous pulse. Good Doppler pulse with CPR Gastrointestinal: distended Genitourinary: penis normal Musculoskeletal: other - no edema Neurologic: other - unresponsive Skin: other - no rash Procedures Critical Care Time Critical Care Time Critical care is mandated in this patient who presented with cardiac arrest. Patient require my urgent intervention to attenuate the risks of metabolic collapse which may lead to cardiovascular collapse and . Critical care time is 35 minutes excluding any reportable procedure. Critical care time included evaluation, multiple reevaluation, looking at old charts, interpreting laboratory and diagnostic data, discussing case with patient and family and consultants, and charting. CPR/Code Blue CPR/Code Blue Narrative please see code sheet for full info. Patient received 2 mg of epinephrine. He was intubated. Spontaneous pulse after second milligram of epinephrine. Intubation Intubation : Consent: Emergent Intubation Method: orotracheal Tube Size (cm): 7.5 Breath Sounds after Intubation: equal Intubation Complications: no complications Post Intubation Xray: Yes Progress/Xray Impression: endotracheal tube in good position. CHF. No pneumothorax. Attempts: One Patient Tolerated: Well Complications: None Medical Decision Making Diagnostic Impression: Primary Impression: Cardiac arrest Additional Impressions: NSTEMI (non-ST elevated myocardial infarction) CHF exacerbation Qualified Codes: I50.9 - Heart failure, unspecified ER Course Patient with cardiac arrest. This probably complication from his NSTEMI and CHF. Patient better after intubation and epinephrine. Prognosis poor. Chest X-Ray Diagnostic Results Chest X-Ray Diagnostic Results : Chest X-Ray Ordered: Yes # of Views/Limited/Complete: 1 View Indication: Chest Pain EP Interpretation: Yes Interpretation: no effusion, no pneumothorax, other - endotracheal tube in good position. Increasing vascular congestion. Impression: Other - status post intubation, CHF Electronically Signed by: Sanford Valenzuela MD Last Vital Signs Date Time Temp Pulse Resp B/P (MAP) Pulse Ox O2 Delivery O2 Flow Rate FiO2 01/06/18 02:56 132 15 100 01/06/18 00:38 148/87 01/06/18 00:00 99.1 87 Room Air 99.1 01/05/18 18:15 2.0 Status: improved Disposition: ADMITTED INPATIENT Condition: Critical Referrals: NON PHYSICIAN (PCP) SANFORD VALENZUELA M.D. January 06, 2018 03:37
[2018-01-06] MEDS ORDERED: Levophed 4mg/4mL Inj IV ONE (04:08)
[2018-01-06] MEDS ORDERED: Sodium Chloride 500ML 500 ML IV ONE ×2 (04:15→04:45)
--- NOTE | 2018-01-06 04:31 | Emergency Room Report ---
Physical Exam Vital Signs Date Time Temp Pulse Resp B/P (MAP) Pulse Ox O2 Delivery O2 Flow Rate FiO2 01/05/18 13:42 102.2 81 16 115/61 89 Room Air 102.2 01/05/18 14:27 2.0 01/06/18 02:56 100 Medical Decision Making Diagnostic Impression: Primary Impression: Cardiac arrest Additional Impressions: NSTEMI (non-ST elevated myocardial infarction) CHF exacerbation Qualified Codes: I50.9 - Heart failure, unspecified Last Vital Signs Date Time Temp Pulse Resp B/P (MAP) Pulse Ox O2 Delivery O2 Flow Rate FiO2 01/06/18 02:56 132 15 100 01/06/18 00:38 148/87 01/06/18 00:00 99.1 87 Room Air 99.1 01/05/18 18:15 2.0 Disposition: ADMITTED INPATIENT Condition: Critical Referrals: NON PHYSICIAN (PCP) Procedures Central Line Central Line : Consent: Emergent Central Line Lumen: triple Maximal Sterile Barrier Tech: yes cap, yes mask, yes sterile gown, yes sterile gloves, yes large sterile sheet, yes hand hygiene, yes chlorhexidine prep Central Line Postion: femoral (R) Complications: none Central Line Post Position: sutured, good blood return Attempts: One Patient Tolerated: Well Complications: None VALORIE WADE M.D. January 06, 2018 04:31
[2018-01-06 04:47] LABS: HEMATOCRIT 31.6 % (42.0-52.0); HEMOGLOBIN 10.8 G/DL (14.2-18.0); MEAN CORPUSCULAR VOLUME 85 FL (80-99); PLATELET COUNT 232 K/UL (150-450); RED BLOOD COUNT 3.71 M/UL (4.70-6.10); RED CELL DISTRIBUTION WIDTH 12.7 % (11.6-14.8); WHITE BLOOD COUNT 16.4 K/UL (4.8-10.8)
[2018-01-06 05:34] LABS: ALANINE AMINOTRANSFERASE 95 U/L (12-78); ALBUMIN 2.2 G/DL (3.4-5.0); ALBUMIN/GLOBULIN RATIO 0.5 (1.0-2.7); ALKALINE PHOSPHATASE 253 U/L (46-116); ANION GAP 15 mmol/L (5-15); ASPARTATE AMINO TRANSFERASE 128 U/L (15-37); BILIRUBIN,TOTAL 2.1 MG/DL (0.2-1.0); BLOOD UREA NITROGEN 24 mg/dL (7-18); CALCIUM 8.4 MG/DL (8.5-10.1); CARBON DIOXIDE 21 MMOL/L (21-32); CHLORIDE 99 MMOL/L (98-107); CHOLESTEROL 63 MG/DL (< 200); CREATININE 1.5 MG/DL (0.55-1.30); HDL CHOLESTEROL 15 MG/DL (40-60); POTASSIUM 3.5 MMOL/L (3.5-5.1); SODIUM 135 MMOL/L (136-145); TRIGLYCERIDES 100 MG/DL (30-150)
[2018-01-06] MEDS ORDERED: NS w/KCl 20mEq 1,000 ML IV SCH (06:30)
[2018-01-06] MEDS: Phenytoin 500 MG in NS 110 ML IVPB SCH ×2 (07:00→11:30)
[2018-01-06] MEDS ORDERED: Oxybutynin 5mg tab ORAL SCH ×2 (09:00)
[2018-01-06] MEDS: Dorzolamide 2% 10ml Btl BOTH EYES SCH ×3 (09:00→18:00)
[2018-01-06] MEDS ORDERED: Heparin 5000 units/ml inj SUBQ SCH ×2 (09:00)
[2018-01-06] MEDS ORDERED: Tums 500mg ORAL PRN ×2 (09:00)
[2018-01-06] MEDS ORDERED: Aspirin Baby 81mg ORAL SCH ×2 (09:00)
[2018-01-06] MEDS ORDERED: Dorzolamide 2% 10ml Btl BOTH EYES SCH (09:00)
[2018-01-06] MEDS ORDERED: metFORMIN 500mg tab ORAL SCH ×2 (09:00)
--- NOTE | 2018-01-06 09:10 | Pulmonology Progress Note ---
Assessment/Plan Assessment/Plan s/p arrest during night while on tele intubated on vent T 101 oliguric had seizures x 2, posturing, unresponsive disc w at bedside, advised of guarded prognosis 1. Urinary sepsis likely although UA neg; US pending to r/o obstruction 2. Acute myocardial infarction. 3. Diabetes, A1c>12 4. Hypertension, now transient hypotension 5. Hyperlipidemia. 6. s/p arrest 7. resp failure 8. oliguric ROSA M 9. hepatic disorder Subjective ROS Limited/Unobtainable: Yes Allergies: Coded Allergies: No Known Allergies (Verified , 09/15/17) Objective Last 24 Hour Vital Signs Date Time Temp Pulse Resp B/P (MAP) Pulse Ox O2 Delivery O2 Flow Rate FiO2 01/06/18 08:45 68/52 01/06/18 08:00 99 39 128/62 94 Mechanical Ventilator 50 01/06/18 07:00 101.9 116 43 188/158 97 Mechanical Ventilator 50 101.9 01/06/18 06:50 81 36 50 01/06/18 06:00 77 21 115/73 98 Mechanical Ventilator 50 01/06/18 05:00 118/69 01/06/18 05:00 82 21 114/67 98 Mechanical Ventilator 50 01/06/18 04:53 83 15 50 01/06/18 04:30 84 21 103/64 97 Mechanical Ventilator 50 01/06/18 04:15 84 21 92/58 95 Mechanical Ventilator 50 01/06/18 04:15 90/40 01/06/18 04:00 58 01/06/18 04:00 59 22 61/43 95 Mechanical Ventilator 50 01/06/18 04:00 50 01/06/18 03:45 62 23 82/53 95 Mechanical Ventilator 50 01/06/18 03:30 82 22 55/25 100 Mechanical Ventilator 50 01/06/18 03:15 100 21 115/69 100 Mechanical Ventilator 50 01/06/18 03:00 99.3 116 21 183/94 100 Mechanical Ventilator 50 99.3 01/06/18 02:56 132 15 100 01/06/18 00:38 78 148/87 01/06/18 00:00 99.1 99 23 144/87 87 Room Air 99.1 01/06/18 00:00 58 01/05/18 20:00 97.0 62 20 154/78 98 Room Air 97.0 01/05/18 20:00 70 01/05/18 18:44 96.4 62 18 149/87 94 Room Air 96.4 01/05/18 18:15 95.8 64 19 112/51 96 Nasal Cannula 2.0 95.8 01/05/18 18:02 95.8 64 19 112/51 96 Nasal Cannula 2.0 95.8 01/05/18 16:10 99.4 01/05/18 14:58 101.8 01/05/18 14:27 101.8 79 24 137/51 96 Nasal Cannula 2.0 101.8 01/05/18 13:42 102.2 81 16 115/61 89 Room Air 102.2 Intake and Output 01/05/18 01/06/18 19:00 07:00 Intake Total 500 ml 50 ml Output Total 135 ml Balance 500 ml -85 ml Intake Oral 0 ml Free Water 0 ml IV Total 500 ml 50 ml Output Urine Total 135 ml General Appearance: other - extensor posturing HEENT: normocephalic, atraumatic Respiratory/Chest: lungs clear, other - intubated Cardiovascular: normal rate Abdomen: soft, non tender, no organomegaly Extremities: no edema Neurologic/Psychiatric: unresponsiveness Lymphatic: no neck adenopathy Musculoskeletal: normal muscle bulk Microbiology Date/Time Source Procedure Growth Status 01/05/18 14:30 Nasal Nares Influenza Types A,B Antigen (LULU) - Final Complete Laboratory Tests 01/05/18 14:14: White Blood Count 10.6, Red Blood Count 4.10L, Hemoglobin 11.5L, Hematocrit 34.3L, Mean Corpuscular Volume 84, Mean Corpuscular Hemoglobin 28.0, Mean Corpuscular Hemoglobin Concent 33.4, Red Cell Distribution Width 12.4, Platelet Count 234, Mean Platelet Volume 7.0, Neutrophils (%) (Auto) , Lymphocytes (%) ( Auto) , Monocytes (%) (Auto) , Eosinophils (%) (Auto) , Basophils (%) (Auto) , Differential Total Cells Counted 100, Neutrophils % (Manual) 86H, Lymphocytes % (Manual) 5L, Monocytes % (Manual) 3, Eosinophils % (Manual) 0, Basophils % ( Manual) 0, Band Neutrophils 6, Platelet Estimate Adequate, Platelet Morphology Normal, Red Blood Cell Morphology Normal, Sodium Level 134L, Potassium Level 3.3L, Chloride Level 100, Carbon Dioxide Level 25, Anion Gap 9, Blood Urea Nitrogen 22H, Creatinine 1.1, Estimat Glomerular Filtration Rate > 60, Glucose Level 166H, Calcium Level 8.9, Total Bilirubin 1.4H, Direct Bilirubin 0.5H, Aspartate Amino Transf (AST/SGOT) 43H, Alanine Aminotransferase (ALT/SGPT) 40, Alkaline Phosphatase 191H, Total Creatine Kinase 135, Creatine Kinase MB 3.9H, Creatine Kinase MB Relative Index 2.8, Troponin I 2.492H, Pro-B-Type Natriuretic Peptide 3404H, Total Protein 7.2, Albumin 2.5L, Globulin 4.7, Albumin/Globulin Ratio 0.5L 01/05/18 14:15: Prothrombin Time 12.3H, Prothromb Time International Ratio 1.2H, Activated Partial Thromboplast Time 31 01/05/18 14:34: Lactic Acid Level 2.40H 01/05/18 16:30: Urine Color Yellow, Urine Appearance Clear, Urine pH 5, Urine Specific [place] 1.015, Urine Protein 2+H, Urine Glucose (UA) 4+H, Urine Ketones 1+H, Urine Occult Blood 1+H, Urine Nitrite Negative, Urine Bilirubin Negative, Urine Urobilinogen 4H, Urine Leukocyte Esterase 1+H, Urine RBC 2-4H, Urine WBC 2-4, Urine Squamous Epithelial Cells Occasional, Urine Amorphous Sediment FewH, Urine Bacteria Occasional 01/05/18 18:00: Lactic Acid Level 1.10 01/05/18 20:25: Troponin I 2.766H, Amylase Level 17L, Lipase 28L 01/06/18 03:40: Arterial Blood pH 7.382, Arterial Blood Partial Pressure CO2 31.3L, Arterial Blood Partial Pressure O2 233.6H, Arterial Blood HCO3 18.2L, Arterial Blood Oxygen Saturation 99.2H, Arterial Blood Base Excess -5.9, Chavo Test Positive 01/06/18 04:00: Troponin I 3.616H, White Blood Count 16.4#H, Red Blood Count 3.71L, Hemoglobin 10.8L, Hematocrit 31.6L, Mean Corpuscular Volume 85, Mean Corpuscular Hemoglobin 29.0, Mean Corpuscular Hemoglobin Concent 34.1, Red Cell Distribution Width 12.7, Platelet Count 232, Mean Platelet Volume 7.7, Neutrophils (%) (Auto) , Lymphocytes (%) (Auto) , Monocytes (%) (Auto) , Eosinophils (%) (Auto) , Basophils (%) (Auto) , Sodium Level 135L, Potassium Level 3.5, Chloride Level 99, Carbon Dioxide Level 21, Anion Gap 15, Blood Urea Nitrogen 24H, Creatinine 1.5H, Estimat Glomerular Filtration Rate 46.7, Glucose Level 275#H, Hemoglobin A1c 12.3H, Calcium Level 8.4L, Total Bilirubin 2.1H, Direct Bilirubin 1.0H, Aspartate Amino Transf (AST/SGOT) 128H, Alanine Aminotransferase (ALT/SGPT) 95H, Alkaline Phosphatase 253H, C-Reactive Protein, Quantitative 22.7H, Total Protein 6.7, Albumin 2.2L, Globulin 4.5, Albumin/ Globulin Ratio 0.5L, Triglycerides Level 100, Cholesterol Level 63, LDL Cholesterol 41, HDL Cholesterol 15L, Cholesterol/HDL Ratio 4.2, Prostate Specific Antigen 2.29, Thyroid Stimulating Hormone (TSH) 4.292H Current Medications Medications (Trade) Dose Ordered Sig/Tyrell Route PRN Reason Start Time Stop Time Status Last Admin Dose Admin Aspirin (ASA) 81 mg DAILY ORAL 01/06/18 09:00 02/05/18 08:59 Atenolol (Tenormin) 50 mg DAILY ORAL 01/06/18 09:00 02/05/18 08:59 Atorvastatin Calcium (Lipitor) 20 mg BEDTIME ORAL 01/06/18 21:00 02/05/18 20:59 Calcium Carbonate (Tums) 500 mg BID PRN ORAL HEARTBURN 01/06/18 09:00 02/04/18 19:03 Chlorhexidine Gluconate (Debi-Hex 2%) 1 applic DAILY@1999 TOPIC 01/06/18 20:00 02/05/18 19:59 Dextrose (Dextrose 50%) 25 ml STAT PRN IV Hypoglycemia BS 60-69mg/dl 01/06/18 06:13 02/05/18 06:12 Dextrose (Dextrose 50%) 50 ml STAT PRN IV Hypoglycemia BS less than 60mg 01/06/18 06:13 02/05/18 06:12 Dorzolamide HCl (Trusopt) 1 drop TID BOTH EYES 01/06/18 09:00 02/04/18 17:59 Famotidine (Pepcid) 20 mg BEDTIME ORAL 01/06/18 21:00 02/04/18 20:59 Heparin Sodium (Porcine) (Heparin 5000 units/ml) 5,000 units EVERY 12 HOURS SUBQ 01/06/18 09:00 02/05/18 08:59 Lisinopril (Prinivil) 40 mg DAILY@1200 ORAL 01/06/18 12:00 02/05/18 11:59 Metformin HCl (Glucophage) 1,000 mg BID ORAL 01/06/18 09:00 02/04/18 17:59 Norepinephrine Bitartrate 4 mg/ Dextrose 250 ml @ 0 mls/hr Q24H IV 01/06/18 05:00 02/05/18 04:59 01/06/18 08:45 Ondansetron HCl (Zofran) 4 mg Q6H PRN IVP Nausea & Vomiting 01/06/18 07:15 02/04/18 19:07 Oxybutynin Chloride (Ditropan) 5 mg BID ORAL 01/06/18 09:00 02/04/18 17:59 Phenytoin 500 mg/ Sodium Chloride 120 ml @ 240 mls/hr Q4H IVPB 01/06/18 07:00 01/06/18 11:29 01/06/18 07:00 Piperacillin Sod/ Tazobactam Sod 3.375 gm/Dextrose 100 ml @ 25 mls/hr Q8H IVPB 01/06/18 13:00 01/12/18 20:59 Pregabalin (Lyrica) 150 mg DAILY@1700 ORAL 01/06/18 17:00 02/05/18 16:59 Sitagliptin Phosphate (Januvia) 50 mg DAILY@1000 ORAL 01/06/18 10:00 02/05/18 09:59 Sodium Chloride 1,000 ml @ 100 mls/hr Q10H IV 01/06/18 06:30 02/05/18 06:29 01/06/18 06:21 Tamsulosin HCl (Flomax) 0.4 mg DAILY@1000 ORAL 01/06/18 10:00 02/05/18 09:59 Vancomycin HCl (Vanco rx to dose) 1 ea DAILY PRN MISC Per rx protocol 01/06/18 09:00 02/04/18 18:59 Vancomycin HCl/ Dextrose 250 ml @ 166.667 mls/hr Q24H IVPB 01/06/18 20:00 01/10/18 19:59 Shreyas Priest MD January 06, 2018 09:10
[2018-01-06] MEDS: Aspirin Baby 81mg ORAL SCH (09:42)
[2018-01-06] MEDS: Heparin 5000 units/ml inj SUBQ SCH ×2 (09:45→21:27)
[2018-01-06] MEDS ORDERED: sitaGLIPtin 25mg tab ORAL SCH ×2 (10:00)
[2018-01-06] MEDS ORDERED: Tamsulosin 0.4mg cap ORAL SCH ×3 (10:00)
[2018-01-06] MEDS ORDERED: sitaGLIPtin 50mg tab ORAL SCH (10:00)
[2018-01-06] MEDS: Acetaminophen 650mg/20.3ml GT PRN (11:29)
[2018-01-06] MEDS ORDERED: Lisinopril 20mg tab ORAL SCH ×3 (12:00)
--- NOTE | 2018-01-06 12:56 | Diagnostic Imaging Report ---
Indication: Status post endotracheal and nasogastric intubation. Technique: XRAY Chest 1v Comparison: 01/05/2018. Findings: Heart size and mediastinal contours are stable. There is interval endotracheal intubation. Tip of the ET tube below level the clavicles, approximately 4.4 cm above the level of the patsy. Enteric tube tip in the proximal stomach. Side port at the GE junction. There are perihilar interstitial opacities, increased from the prior exam possibly related to pulmonary edema. No definite pleural effusion. No pneumothorax. Impression: Satisfactory endotracheal intubation. Enteric tube tip in the stomach. Interval worsening of interstitial and probably perihilar airspace opacities thought to related to pulmonary edema. Superimposed pneumonia not entirely excluded. Clinical correlation and follow-up exam recommended. This corresponds with the statrad preliminary report.
--- NOTE | 2018-01-06 13:08 | Consultation ---
Consult Note Consult Note NEUROLOGY CONSULTATION: Full note dictated # 67 y/o, RH, PM who does have a PH of HTN, DM, DL, BPH, neuropathy, gallstones and pancreatitis. He was functioning well until 01/05/18 when he was hospitalized for urinary sepsis and an acute myocardial infarction. At 02:40 hrs he was noted to be in a Sinus bradycardia and was unresponsive. A code Blue was called and he had to be intubated and was given epinephrine. No recordable BP and pulse was noted for ~ 8 minutes. He then had "seizures" which most probably represented myoclonus. ON EXAM: Comatose. Minimal EM on OCM Minimal corneals. Decerebrate posturing in UE and withdrawal in lower extremities on DP. Brisk DTRs with extensor plantars. Episodic facial myoclonus seen. 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 REC: Keppra 500 mg IV q [address] brain Only give Ativan 2 mg IV if events last >3 minutes at a time. Observe for 72 hours to help prognosticate Joslyn Corey M.D., M.S.P.H. JOSLYN COREY January 06, 2018 13:08
[2018-01-06] MEDS ORDERED: levETIRAcetam 500mg/NS100ml 100 ML IVPB ONE (14:30)
--- NOTE | 2018-01-06 14:45 | Cardiology Report ---
APPROVED REPORT EXAM: Two-dimensional and M-mode echocardiogram with Doppler and color Doppler. INDICATION Acute myocardial infarction M-Mode DIMENSIONS IVSd1.7 (0.7-1.1cm)Left Atrium (MM)3.9 (1.6-4.0cm) LVDd4.4 (3.5-5.6cm)Aortic Root2.8 (2.0-3.7cm) PWd1.3 (0.7-1.1cm)Aortic Cusp Exc.1.5 (1.5-2.0cm) LVDs2.2 (2.5-4.0cm) PWs1.9 cm Technically difficult study due to patient on ventilator. Study quality precludes accurate assessment of regional wall motion. Normal left ventricular chamber size. Global left ventricular hypokinesis, more severe in the apical region. Possible echo density at the apex, consider LV thrombus. Left ventricular ejection fraction estimated to be 35 %. Moderate left ventricular hypertrophy. Anterior Echo-free space, may be due to pericardial fat or effusion. All other cardiac chamber sizes are within normal limits. Mild focal aortic valve sclerosis with adequate cusp excursion. Mildly thickened mitral valve leaflets with normal excursion. Moderate mitral annulus and aortic root calcification. Pulmonic valve not well visualized. Normal tricuspid valve structure. IVC dilated at 2.3 cm without physiologial collapse, estimated RAP is 15 mmHg. A color flow and spectral Doppler study was performed and revealed: Trace aortic insufficiency. Mild mitral regurgitation. Mitral inflow velocities indicates possible pseudo normalization pattern implying significant left ventricular diastolic dysfunction (Grade II). Moderate tricuspid regurgitation. Tricuspid systolic velocities suggests peak right ventricular systolic pressure of 60 mmHg, consistent with severe pulmonary hypertension. No pulmonic regurgitation present. Dr. England notified.
--- NOTE | 2018-01-06 14:49 | Diagnostic Imaging Report ---
Indication: Abnormal LFTs Technique: US ABD Complete Comparison: None Findings: Limited evaluation due to overlying bowel gas. The pancreas and portions of the aorta are not visualized. There is normal in size and echogenicity. No focal hepatic mass lesion is appreciated sonographically. The portal vein is patent with normal direction of flow. There is no appreciable biliary ductal dilatation. There is gallbladder wall thickening up to 6 mm. There is no pericholecystic fluid. No appreciable gallstones or gallbladder sludge seen. Common bile duct measures 4.7 mm diameter. Kidneys are symmetric in size. Renal echogenicity within normal limits. There is no hydronephrosis bilaterally. There is an anechoic structure in the right kidney which most likely represents a simple cyst. This measures approximately 2.4 cm in diameter. Spleen is normal in size. No appreciable ascites. There are bilateral pleural effusion. IMPRESSION: Limited exam due to overlying bowel gas. This obscures the pancreas and abdominal aorta. Gallbladder wall thickening. No discrete gallstones or gallbladder sludge seen. No pericholecystic fluid. Patient unable to report sonographic [place] sign. Findings are equivocal. Clinical correlation recommended. Consider further imaging with HIDA scan if there is clinical concern for cholecystitis. Simple appearing renal cysts. No evidence of hydronephrosis or sonographically appreciable renal stone. Bilateral pleural effusions partially visualized.
[2018-01-06] MEDS ORDERED: Bumetanide 2.5mg/10ml Inj IVP ONE (15:20)
[2018-01-06] MEDS: Amikacin Rx to dose MISC SCH (16:00)
[2018-01-06] MEDS: Bumetanide 10 MG in D5W 60 ML IVLG SCH (16:00)
[2018-01-06] MEDS ORDERED: Sterile Water Irrig 1000ml IRRIG ONE (16:32)
[2018-01-06] MEDS ORDERED: NS 500ML ONE (16:32)
[2018-01-06] MEDS ORDERED: Tubing IV Secondary IV ONE (16:46)
[2018-01-06] MEDS ORDERED: NS 275ml ONE (16:46)
[2018-01-06] MEDS ORDERED: Lyrica 75mg cap ORAL SCH ×2 (17:00)
[2018-01-06] MEDS ORDERED: Amikacin 500 MG in NS 110 ML IV ONE (18:00)
[2018-01-06] MEDS: Lyrica 75mg cap ORAL SCH (18:47)
--- NOTE | 2018-01-06 19:00 | Consultation ---
DATE OF CONSULTATION: 01/06/2018 NEUROLOGY CONSULTATION CONSULTING PHYSICIAN: Jose C Corey M.D. REQUESTING PHYSICIAN: Shreyas Priest M.D. HISTORY: Mr. 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 He was functioning relatively well until 01/05/2018 when he was hospitalized for urinary sepsis and an acute myocardial infarction. At approximately 02:40 hours on 01/06/2018, he was having some nausea and vomiting and then was noted to be in sinus bradycardia. He then became unresponsive. A Code Blue was called and he was started on chest compressions and intubated and given 2 injections of epinephrine. No recordable pulse and blood pressure was noted for approximately 8 minutes. He then had sinus tachycardia and a blood pressure was recordable and he was transferred to the intensive care unit. In the intensive care unit, he has had some abnormal body movements, which were labeled seizures and he has continued to be unresponsive. This consultation was requested to evaluate the patient for possible new onset seizures. At this point in time, the patient is unresponsive and in a comatose state. He does demonstrate some facial myoclonus from time to time, and at times exhibits decerebrate posturing spontaneously. As per his family, the patient was quite normal, able to talk, walk, and function relatively well prior to this event. PAST MEDICAL HISTORY: Significant for hypertension, diabetes mellitus, dyslipidemia, benign prostatic hypertrophy, neuropathy, gallstones, and pancreatitis. FAMILY HISTORY: Significant for high blood pressure and diabetes mellitus in other family members. PERSONAL HISTORY: Home: He lives at home with his . Work: He is retired. Habits: None. PRESENT MEDICATIONS: Include atorvastatin, Pepcid, vancomycin, Lyrica, Zosyn, lisinopril, Tylenol p.r.n., Januvia, Flomax, aspirin 81 mg daily, atenolol, calcium carbonate, Trusopt, heparin for DVT prophylaxis, metformin, Ditropan He got a single dose of phenytoin 500 mg intravenously and 2 doses of epinephrine. PHYSICAL EXAMINATION: GENERAL: He is a well-developed, relatively well-nourished, [place] gentleman, lying in an ICU bed, connected to a ventilator via an oral tracheal tube. VITAL SIGNS: Pulse 76 per minute, blood pressure 138/87 mmHg, respirations 33 per minute, and temperature 100.6 degrees Fahrenheit. HEAD: Normocephalic and atraumatic. EENT: Examination benign. NECK: No neck rigidity was observed. NEUROLOGIC EXAMINATION: MENTAL STATUS EXAMINATION: He was comatose and did not respond even to deep painful stimuli. Further mental status testing was impossible. He did, however, decerebrate when deep painful stimuli were applied to his upper extremities and exhibited reflex withdrawal of both lower extremities on deep pain. SPEECH: Could not be tested. LANGUAGE: Could not be tested. CRANIAL NERVE EXAMINATION: II: He did not blink to threat. III, IV & : The external ocular movements were present, but significantly diminished on oculocephalic maneuvers. The pupils were 3 mm in diameter and nonreactive. V & VII: The corneal reflexes were minimally present bilaterally. VIII: He did not respond to sounds and had no nystagmus. IX & X: The gag reflex was absent on manipulating the endotracheal tube. XI: The sternocleidomastoids and trapezii did not function. XII: Could not be tested. MOTOR SYSTEM: The tone was normal in all four extremities. Examination of muscle mass revealed no focal wasting. Examination of power could not be performed because even on applying deep painful stimuli, he only decerebrated in the upper extremities and reflexly withdrew in his lower extremities. SENSORY EXAMINATION: He did respond to deep pain at the spinal level. REFLEXES: 3+ and bilaterally symmetrical at the biceps, triceps, brachioradialis, and knees and 0 at both ankles. The plantar responses were extensor bilaterally. COORDINATION, STANCE & GAIT: Could not be tested. ABNORMAL MOVEMENTS: He exhibited episodic facial myoclonus from time to time. He also exhibited spontaneous decerebration from time to time. DIAGNOSTIC IMPRESSION: 1. Mr. Ibrahima Ellington is a 67-year-old, right-handed, [place] gentleman, who does have a past history of hypertension, diabetes mellitus, dyslipidemia, benign prostatic hypertrophy, neuropathy, gallstones, and pancreatitis, who was hospitalized on 01/05/2018 for urinary sepsis and a possible acute myocardial infarction. In the early hours of 01/06/2018, he was noted to be bradycardic following a bout of nausea and vomiting and then became unresponsive. A Code Blue was called and he had to be intubated, had chest compressions, had to be given epinephrine, and then there was a return of pulse and blood pressure. There was an 8-minute period, where a blood pressure and pulse could not be recorded. Since then, the patient has been comatose and has been exhibiting some abnormal movements, which have been labeled seizures. 2. On neurological examination, at this time, the patient is comatose and only responds to deep pain with decerebrate posturing in the upper extremities and reflex withdrawal in both lower extremities. He does have minimal eye movements on oculocephalic maneuvers and minimal corneal reflexes bilaterally. As mentioned earlier, he decerebrates in the upper extremities and withdraws his lower extremities to deep pain. His deep tendon reflexes are pathologically brisk and he exhibits extensor plantar responses bilaterally. He also exhibits episodic facial myoclonus. 3. His latest laboratory data revealed WBC count elevated at 16,400 and anemia with a hemoglobin of 10.8. Sodium at 135, BUN elevated at 24 with a creatinine of 1.5, and glucose elevated at 275. Hemoglobin A1c at 12.3%. Lactic acidosis at 6.8. Elevated liver function tests. Elevated troponins. Low albumin at 2.2. High TSH at 4.29. His urinalysis reveals 1+ leukocyte esterase and 2-4 red blood cells and 2-4 white blood cells per high-power field. His last arterial blood gas performed at 09:12 hours today reveals a pH of 7.27, a pCO2 of 31.9, and a pO2 of 60.4. 4. 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 RECOMMENDATIONS: 1. Agree with management thus far. 2. The patient's anticonvulsant will be changed from Dilantin to Keppra 500 mg IV q.12 hours. 3. An EEG will be ordered to evaluate the patient for ongoing ictal or interictal phenomena. 4. A CT scan of the brain without contrast should be performed to evaluate the patient for catastrophic intracranial pathology. 5. If his myoclonic events lasts for more than 3 minutes at a time, then Ativan 2 mg intravenously can be given every six hours. 6. The patient will be observed for the next 72 hours to help us prognosticate on his neurological recovery. Thank you for entrusting me with the care of Mr. Salas Ellington. I shall follow him with you. Jose C Corey M.D., M.S.P.H. DR: YONI JOB#: [id number] MTDD
[2018-01-06] MEDS ORDERED: Vancomycin 1250mg/D5W 250ml 250 ML IVPB SCH ×2 (20:00)
[2018-01-06] MEDS ORDERED: Dyna-Hex 2% Top Sol 2oz TOPIC SCH (20:00)
[2018-01-06] MEDS: Dyna-Hex 2% Top Sol 2oz TOPIC SCH (20:12)
[2018-01-06] MEDS: Atorvastatin 20mg tab ORAL SCH (21:25)
[2018-01-06] MEDS: levETIRAcetam 500mg/NS100ml 100 ML IVPB SCH (21:28)
[2018-01-06] MEDS ORDERED: Enoxaparin 60mg Inj SUBQ SCH (23:15)
[2018-01-06] MEDS ORDERED: Enoxaparin 80mg Inj SUBQ SCH (23:15)
[2018-01-07] VITALS (61 sets, daily range): BP systolic 46–165; BP diastolic 28–84
[2018-01-07 05:37] LABS: HEMATOCRIT 33.6 % (42.0-52.0); HEMOGLOBIN 11.7 G/DL (14.2-18.0); MEAN CORPUSCULAR VOLUME 86 FL (80-99); PLATELET COUNT 220 K/UL (150-450); RED BLOOD COUNT 3.93 M/UL (4.70-6.10); RED CELL DISTRIBUTION WIDTH 13.2 % (11.6-14.8); WHITE BLOOD COUNT 19.2 K/UL (4.8-10.8)
[2018-01-07 05:52] LABS: ANION GAP 16 mmol/L (5-15); BLOOD UREA NITROGEN 45 mg/dL (7-18); CALCIUM 7.8 MG/DL (8.5-10.1); CARBON DIOXIDE 18 MMOL/L (21-32); CHLORIDE 101 MMOL/L (98-107); CREATININE 3.1 MG/DL (0.55-1.30); PHOSPHORUS 3.8 MG/DL (2.5-4.9); POTASSIUM 4.5 MMOL/L (3.5-5.1); SODIUM 135 MMOL/L (136-145)
[2018-01-07 05:55] LABS: CREATINE KINASE 565 U/L (26-308)
--- NOTE | 2018-01-07 06:30 | Progress Note ---
DATE: 01/06/2018 CARDIOLOGY PROGRESS NOTE SUBJECTIVE: The patient was seen and evaluated in the intensive care unit. The case was discussed with Dr. Corey, Dr. Priest, Dr. Gonzalez, as well as family members at bedside. The patient suffered an arrest early this morning. The scenario was discussed with staff and cardiac strips were reviewed. The patient apparently had episodes of nausea and vomiting. Subsequently, he became bradycardic, apneic, and asystolic. He was ultimately resuscitated. He remained between 4 to 6 minutes in a CPR protocol. At this time, he is on full ventilator support and orally intubated with a sinus rhythm. He is unresponsive. There is posturing noted and there is some myoclonal activity seen. OBJECTIVE: VITAL SIGNS: Blood pressure 129/67, pulse 61, respirations 24, afebrile, and T-max 101. GENERAL: Unresponsive. LUNGS: Bilateral breath sounds. Scattered rales. HEART: Regular rhythm and rate. Normal S1 and S2 with a third heart sound. ABDOMEN: Soft and distended. EXTREMITIES: With trace edema. No mottling. DIAGNOSTIC DATA: Chest x-ray reveals pulmonary interstitial infiltrates and worsening pulmonary edema. Laboratory notable for BUN 24, creatinine 1.5, and potassium 3.5. Lactic acid 6.8. Glucose 275. Hemoglobin A1c is over 12. Troponin has increased to 6.9. EKGs reviewed and notable for sinus rhythm with evidence of anteroseptal infarction of indeterminate age. Albumin is 2.2. An echocardiogram reveals possible apical thrombus with ejection fraction of 35% and global hypokinesis worse in the anteroseptal and anteroapical regions. IMPRESSION: 1. Acute myocardial infarction. 2. Status post cardiopulmonary arrest. 3. Respiratory failure. 4. Anoxic encephalopathy. 5. Urinary tract infection with sepsis. 6. Diabetes mellitus with uncontrolled blood glucose prior to admission based on A1c of greater than 12. 7. History of hypertensive heart disease. 8. Acute renal failure. 9. Critical and guarded. 10. Possible apical thrombus and cardiogenic insufficiency. PLAN: 1. Diuresis. 2. Intensive care unit care. 3. Full anticoagulation with Lovenox. 4. Anti-failure regimen as tolerated including beta-blockade. 5. Antimicrobials. 6. Antiplatelet therapy. 7. Insulin coverage by sliding scale. Yosef Sherrie England DR: ROWENA JOB#: [id number] CC:
[2018-01-07] MEDS ORDERED: Enoxaparin 60mg Inj SUBQ SCH (09:00)
[2018-01-07] MEDS: levETIRAcetam 500mg/NS100ml 100 ML IVPB SCH ×2 (09:24→21:00)
[2018-01-07] MEDS: Aspirin Baby 81mg ORAL SCH (09:24)
[2018-01-07] MEDS: Bumetanide 10 MG in D5W 60 ML IVLG SCH (09:25)
[2018-01-07] MEDS: Dorzolamide 2% 10ml Btl BOTH EYES SCH ×3 (09:26→17:18)
[2018-01-07] MEDS: Amikacin Rx to dose MISC SCH (09:26)
[2018-01-07] MEDS ORDERED: NS 500ML ONE (10:36)
--- NOTE | 2018-01-07 13:03 | Nephrology Progress Note ---
Assessment/Plan Problem List: (1) CHF (congestive heart failure) (2) ROSA M (acute kidney injury) (3) Cardiac arrest (4) NSTEMI (non-ST elevated myocardial infarction) (5) CHF exacerbation Plan continue bumex drip, grave prognosis Subjective ROS Limited/Unobtainable: Yes Objective Objective Last 24 Hour Vital Signs Date Time Temp Pulse Resp B/P (MAP) Pulse Ox O2 Delivery O2 Flow Rate FiO2 01/07/18 12:55 56 18 50 01/07/18 11:00 55 19 104/54 100 Mechanical Ventilator 50 01/07/18 10:49 55 20 50 01/07/18 10:45 55 18 98/52 100 Mechanical Ventilator 60 01/07/18 10:30 55 19 98/53 100 Mechanical Ventilator 60 01/07/18 10:15 55 20 101/54 100 Mechanical Ventilator 60 01/07/18 10:00 104/55 01/07/18 10:00 56 15 104/55 100 Mechanical Ventilator 60 01/07/18 09:30 56 19 104/57 100 Mechanical Ventilator 60 01/07/18 09:00 55 16 103/54 100 Mechanical Ventilator 60 01/07/18 09:00 56 106/56 01/07/18 09:00 103/54 01/07/18 08:44 56 17 60 01/07/18 08:30 56 18 106/57 100 Mechanical Ventilator 70 01/07/18 08:00 99.0 55 16 104/55 100 Mechanical Ventilator 70 99.0 01/07/18 08:00 70 01/07/18 08:00 54 01/07/18 08:00 104/55 01/07/18 07:30 55 19 102/53 100 Mechanical Ventilator 70 01/07/18 07:29 55 20 70 01/07/18 07:00 55 19 94/50 100 Mechanical Ventilator 70 01/07/18 07:00 94/50 01/07/18 06:30 55 16 97/49 100 Mechanical Ventilator 70 01/07/18 06:00 54 16 97/53 100 Mechanical Ventilator 70 01/07/18 05:45 55 20 93/51 100 Mechanical Ventilator 70 01/07/18 05:30 56 22 99/53 100 Mechanical Ventilator 70 01/07/18 05:15 55 22 93/48 100 Mechanical Ventilator 70 01/07/18 05:13 56 23 70 5/5/18 05:00 55 22 91/48 100 Mechanical Ventilator 70 5/5/18 04:45 56 23 97/50 100 Mechanical Ventilator 70 5/5/18 04:30 60 23 105/54 100 Mechanical Ventilator 70 5/5/18 04:15 62 20 111/72 100 Mechanical Ventilator 70 5/5/18 04:00 56 5/5/18 04:00 70 5/5/18 04:00 99.8 61 17 112/55 100 Mechanical Ventilator 70 99.8 5/5/18 03:45 55 22 105/60 100 Mechanical Ventilator 70 5/5/18 03:30 55 22 95/53 100 Mechanical Ventilator 70 5/5/18 03:30 61 22 70 5/5/18 03:15 55 21 95/53 100 Mechanical Ventilator 70 5/5/18 03:00 55 10 95/53 100 Mechanical Ventilator 70 5/5/18 02:00 57 10 90/43 100 Mechanical Ventilator 70 5/5/18 01:30 65 23 70 5/5/18 01:00 62 23 112/59 100 Mechanical Ventilator 70 5/5/18 00:00 98.7 61 25 93/58 100 Mechanical Ventilator 70 98.7 5/5/18 00:00 70 5/5/18 00:00 61 5/4/18 23:26 60 21 70 5/4/18 23:00 71 25 133/89 100 Mechanical Ventilator 70 5/4/18 22:45 63 25 116/58 100 Mechanical Ventilator 70 5/4/18 22:30 61 28 115/69 100 Mechanical Ventilator 70 5/4/18 22:15 62 27 125/63 100 Mechanical Ventilator 70 5/4/18 22:00 63 22 118/65 100 Mechanical Ventilator 70 5/4/18 21:45 62 22 146/85 100 Mechanical Ventilator 70 5/4/18 21:30 59 24 129/67 100 Mechanical Ventilator 70 5/4/18 21:30 61 24 70 5/4/18 21:15 59 24 132/75 100 Mechanical Ventilator 70 5/4/18 21:00 60 26 125/72 100 Mechanical Ventilator 70 5/4/18 20:45 63 22 124/73 100 Mechanical Ventilator 70 5/4/18 20:30 62 26 123/72 100 Mechanical Ventilator 70 5/4/18 20:15 62 27 130/72 100 Mechanical Ventilator 70 5/4/18 20:03 127/67 5/4/18 20:00 98.9 61 26 127/67 100 Mechanical Ventilator 70 98.9 5/4/18 20:00 70 5/4/18 20:00 61 5/4/18 19:46 97.8 5/4/18 19:30 63 26 70 5/4/18 19:30 61 26 122/75 100 Mechanical Ventilator 50 5/4/18 19:00 60 22 110/61 100 Mechanical Ventilator 50 5/4/18 19:00 112/57 5/4/18 18:47 97.8 5/4/18 18:30 91 21 114/67 100 Mechanical Ventilator 50 5/4/18 18:00 61 22 112/70 100 Mechanical Ventilator 50 5/4/18 18:00 94/64 5/4/18 18:00 62 24 115/70 100 Mechanical Ventilator 50 5/4/18 17:30 61 24 112/70 100 Mechanical Ventilator 50 5/4/18 17:00 61 21 101/67 100 Mechanical Ventilator 50 5/4/18 17:00 92/59 5/4/18 17:00 61 22 92/59 100 Mechanical Ventilator 50 5/4/18 16:32 61 23 70 5/4/18 16:30 62 24 94/62 100 Mechanical Ventilator 50 5/4/18 16:00 97.8 63 24 94/64 100 Mechanical Ventilator 50 97.8 5/4/18 16:00 63 24 89/63 100 Mechanical Ventilator 50 5/4/18 16:00 70 5/4/18 16:00 89/63 5/4/18 16:00 61 5/4/18 15:30 64 25 83/54 100 Mechanical Ventilator 50 5/4/18 15:05 70 36 70 5/4/18 15:00 70 30 110/77 100 Mechanical Ventilator 50 5/4/18 15:00 110/77 5/4/18 15:00 70 30 110/77 100 Mechanical Ventilator 50 5/4/18 14:30 71 31 93/60 100 Mechanical Ventilator 50 5/4/18 14:00 99/61 5/4/18 14:00 75 36 99/61 100 Mechanical Ventilator 50 5/4/18 14:00 75 30 99/61 100 Mechanical Ventilator 50 5/4/18 13:30 78 29 116/69 100 Mechanical Ventilator 50 01/06/18 13:19 72 36 70 Intake and Output 01/06/18 01/07/18 19:00 07:00 Intake Total 1364 ml 546.167 ml Output Total 56 ml 880 ml Balance 1308 ml -333.833 ml Free Water 0 ml IV Total 1364 ml 516.167 ml Other 30 ml Output Urine Total 56 ml 880 ml Laboratory Tests 01/06/18 14:10: Urine Random Sodium 30, Urine Creatinine 186.6H 01/06/18 20:15: Lactic Acid Level 4.60H 01/07/18 04:00: Lactic Acid Level 3.30H, White Blood Count 19.2H, Red Blood Count 3.93L, Hemoglobin 11.7L, Hematocrit 33.6L, Mean Corpuscular Volume 86, Mean Corpuscular Hemoglobin 29.7, Mean Corpuscular Hemoglobin Concent 34.8, Red Cell Distribution Width 13.2, Platelet Count 220, Mean Platelet Volume 8.0, Neutrophils (%) (Auto) , Lymphocytes (%) (Auto) , Monocytes (%) (Auto) , Eosinophils (%) (Auto) , Basophils (%) (Auto) , Differential Total Cells Counted 100, Neutrophils % (Manual) 86H, Lymphocytes % (Manual) 6L, Monocytes % (Manual) 8, Eosinophils % (Manual) 0, Basophils % (Manual) 0, Band Neutrophils 0 , Platelet Estimate Adequate, Platelet Morphology Normal, Hypochromasia 1+, Sodium Level 135L, Potassium Level 4.5, Chloride Level 101, Carbon Dioxide Level 18L, Anion Gap 16H, Blood Urea Nitrogen 45H, Creatinine 3.1#H, Estimat Glomerular Filtration Rate 20.2, Glucose Level 351H, Calcium Level 7.8L, Phosphorus Level 3.8, Magnesium Level 1.6L, Total Creatine Kinase 565H, Troponin I 6.454H, Phenytoin (Dilantin) Level 8.4L 01/07/18 10:05: Lactic Acid Level 2.40H Height (Feet): 5 Height (Inches): 4.00 Weight (Pounds): 167 General Appearance: other - coma EENT: other - eyes deviate down Neck: normal alignment Cardiovascular: regular rhythm Respiratory/Chest: crackles/rales Abdomen: non tender Extremities: trace edema Neurologic: unresponsive KEILA KHAN January 07, 2018 13:03
[2018-01-07] MEDS: Acetaminophen 650mg/20.3ml GT PRN (15:02)
--- NOTE | 2018-01-07 15:04 | Infectious Diseases Prog Note ---
Assessment/Plan Assessment/Plan ASSESSMENT AND PLAN: 1. sepsis, fevers, leukocytosis, gram neg bacteremia/gram + bacteremia, ? uti, alfonzo, respiratory failure, s/p code, ? aspiration pna/HCAP vs edema, poorly responsive - zosyn and zyvox - check bc, uc, sc, labs and chest x-ray - watch clinically, icu supportive care - poor prognosis - d/w pharmacy - d/w RN and family at the bedside 2. Status post cystoscopy. 3. Diabetes. 4. Hypertension. 5. Hyperlipidemia. 6. Benign prostatic hypertrophy. 7. Neuropathy. 8. History of gallstone pancreatitis. 9. Allergies are negative. 10. Family history is noncontributory. 11. Social history is negative. 12. MAR was noted. 13. Case was discussed with RN. 14. Case was discussed with Dr. Priest. 15. Case was discussed with the patient and family member. 16. Notes and records were reviewed. 17. MAR was noted. 18. Orders were entered. Subjective Constitutional: Reports: other - intubated, in icu, s/p code per RN HEENT: Reports: congestion Respiratory: Reports: shortness of breath, other - on vent Breasts: Reports: no symptoms, discharge, swelling, tenderness, other Cardiovascular: Reports: other - no pressors Gastrointestinal/Abdominal: Denies: nausea, vomiting, diarrhea Genitourinary: Reports: other - + johansen Neurologic: Reports: other - poorly responsive Psychiatric: Reports: no symptoms Skin: Denies: rash Hematologic: Denies: bleeding Musculoskeletal: Reports: no symptoms Allergies: Coded Allergies: No Known Allergies (Verified , 09/15/17) Objective Vital Signs Last 24 Hour Vital Signs Date Time Temp Pulse Resp B/P (MAP) Pulse Ox O2 Delivery O2 Flow Rate FiO2 01/07/18 14:15 73 19 128/65 100 Mechanical Ventilator 50 01/07/18 14:00 63 19 118/61 100 Mechanical Ventilator 50 01/07/18 13:45 58 19 111/58 99 Mechanical Ventilator 50 01/07/18 13:30 57 19 114/58 99 Mechanical Ventilator 50 01/07/18 13:15 58 19 100/51 100 Mechanical Ventilator 50 01/07/18 13:00 56 19 102/54 100 Mechanical Ventilator 50 01/07/18 13:00 102/54 01/07/18 12:55 56 18 50 5/5/18 12:45 56 18 102/52 100 Mechanical Ventilator 50 5/5/18 12:30 55 16 95/50 100 Mechanical Ventilator 50 5/5/18 12:15 55 15 94/48 100 Mechanical Ventilator 50 5/5/18 12:00 55 5/5/18 12:00 50 5/5/18 12:00 99.0 55 15 91/51 100 Mechanical Ventilator 50 99.0 5/5/18 12:00 91/51 5/5/18 11:45 55 15 95/51 100 Mechanical Ventilator 50 5/5/18 11:30 55 19 98/51 100 Mechanical Ventilator 50 5/5/18 11:15 55 19 104/54 100 Mechanical Ventilator 50 5/5/18 11:00 55 19 104/54 100 Mechanical Ventilator 50 5/5/18 11:00 104/54 5/5/18 10:49 55 20 50 5/5/18 10:45 55 18 98/52 100 Mechanical Ventilator 60 5//18 10:30 55 19 98/53 100 Mechanical Ventilator 60 5/5/18 10:15 55 20 101/54 100 Mechanical Ventilator 60 5/5/18 10:00 104/55 5/5/18 10:00 56 15 104/55 100 Mechanical Ventilator 60 5/5/18 09:30 56 19 104/57 100 Mechanical Ventilator 60 5//18 09:00 55 16 103/54 100 Mechanical Ventilator 60 5/5/18 09:00 56 106/56 5/5/18 09:00 103/54 5/5/18 08:44 56 17 60 5/5/18 08:30 56 18 106/57 100 Mechanical Ventilator 70 5/5/18 08:00 99.0 55 16 104/55 100 Mechanical Ventilator 70 99.0 5/5/18 08:00 70 5/5/18 08:00 54 5/5/18 08:00 104/55 5/5/18 07:30 55 19 102/53 100 Mechanical Ventilator 70 5/5/18 07:29 55 20 70 5/5/18 07:00 55 19 94/50 100 Mechanical Ventilator 70 5/5/18 07:00 94/50 5/5/18 06:30 55 16 97/49 100 Mechanical Ventilator 70 5/5/18 06:00 54 16 97/53 100 Mechanical Ventilator 70 5/5/18 05:45 55 20 93/51 100 Mechanical Ventilator 70 5/5/18 05:30 56 22 99/53 100 Mechanical Ventilator 70 5/5/18 05:15 55 22 93/48 100 Mechanical Ventilator 70 5/5/18 05:13 56 23 70 5/5/18 05:00 55 22 91/48 100 Mechanical Ventilator 70 5/5/18 04:45 56 23 97/50 100 Mechanical Ventilator 70 5/5/18 04:30 60 23 105/54 100 Mechanical Ventilator 70 5/5/18 04:15 62 20 111/72 100 Mechanical Ventilator 70 5/5/18 04:00 56 5/5/18 04:00 70 5/5/18 04:00 99.8 61 17 112/55 100 Mechanical Ventilator 70 99.8 5/5/18 03:45 55 22 105/60 100 Mechanical Ventilator 70 5/5/18 03:30 55 22 95/53 100 Mechanical Ventilator 70 5/5/18 03:30 61 22 70 5/5/18 03:15 55 21 95/53 100 Mechanical Ventilator 70 5/5/18 03:00 55 10 95/53 100 Mechanical Ventilator 70 5/5/18 02:00 57 10 90/43 100 Mechanical Ventilator 70 5/5/18 01:30 65 23 70 5/5/18 01:00 62 23 112/59 100 Mechanical Ventilator 70 5/5/18 00:00 98.7 61 25 93/58 100 Mechanical Ventilator 70 98.7 5/5/18 00:00 70 5/5/18 00:00 61 5/4/18 23:26 60 21 70 5/4/18 23:00 71 25 133/89 100 Mechanical Ventilator 70 5/4/18 22:45 63 25 116/58 100 Mechanical Ventilator 70 5/4/18 22:30 61 28 115/69 100 Mechanical Ventilator 70 5/4/18 22:15 62 27 125/63 100 Mechanical Ventilator 70 5/4/18 22:00 63 22 118/65 100 Mechanical Ventilator 70 5/4/18 21:45 62 22 146/85 100 Mechanical Ventilator 70 5/4/18 21:30 59 24 129/67 100 Mechanical Ventilator 70 5/4/18 21:30 61 24 70 5/4/18 21:15 59 24 132/75 100 Mechanical Ventilator 70 5/4/18 21:00 60 26 125/72 100 Mechanical Ventilator 70 5/4/18 20:45 63 22 124/73 100 Mechanical Ventilator 70 5/4/18 20:30 62 26 123/72 100 Mechanical Ventilator 70 5/4/18 20:15 62 27 130/72 100 Mechanical Ventilator 70 5/4/18 20:03 127/67 5/4/18 20:00 98.9 61 26 127/67 100 Mechanical Ventilator 70 98.9 5/4/18 20:00 70 5/4/18 20:00 61 5/4/18 19:46 97.8 5/4/18 19:30 63 26 70 5/4/18 19:30 61 26 122/75 100 Mechanical Ventilator 50 5/4/18 19:00 60 22 110/61 100 Mechanical Ventilator 50 5/4/18 19:00 112/57 5/4/18 18:47 97.8 5/4/18 18:30 91 21 114/67 100 Mechanical Ventilator 50 5/4/18 18:00 61 22 112/70 100 Mechanical Ventilator 50 5/4/18 18:00 94/64 5/4/18 18:00 62 24 115/70 100 Mechanical Ventilator 50 5/4/18 17:30 61 24 112/70 100 Mechanical Ventilator 50 5/4/18 17:00 61 21 101/67 100 Mechanical Ventilator 50 5/4/18 17:00 92/59 5/4/18 17:00 61 22 92/59 100 Mechanical Ventilator 50 5/4/18 16:32 61 23 70 5/4/18 16:30 62 24 94/62 100 Mechanical Ventilator 50 5/4/18 16:00 97.8 63 24 94/64 100 Mechanical Ventilator 50 97.8 5/4/18 16:00 63 24 89/63 100 Mechanical Ventilator 50 5/4/18 16:00 70 5/4/18 16:00 89/63 5/4/18 16:00 61 5/4/18 15:30 64 25 83/54 100 Mechanical Ventilator 50 5/4/18 15:05 70 36 70 5/4/18 15:00 70 30 110/77 100 Mechanical Ventilator 50 5/4/18 15:00 110/77 5/4/18 15:00 70 30 110/77 100 Mechanical Ventilator 50 Height (Feet): 5 Height (Inches): 4.00 Weight (Pounds): 167 General Appearance: other - on vent, no pressors, fio2-50% HEENT: normocephalic, atraumatic, anicteric, other - oral - intubated Respiratory/Chest: crackles/rales, rhonchi - bilaterally Cardiovascular: normal rate, regular rhythm, no gallop/murmur, no JVD Abdomen: normal bowel sounds, soft, non tender, no organomegaly, non distended Genitourinary: other - + johansen - urine slt cloudy Extremities: no cyanosis Skin: no rash Neurologic/Psychiatric: other - poorly responsive, on vent Lymphatic: no neck adenopathy Musculoskeletal: no effusion Objective Chest x-ray - 01/06 Findings: Heart size and mediastinal contours are stable. There is interval endotracheal intubation. Tip of the ET tube below level the clavicles, approximately 4.4 cm above the level of the patsy. Enteric tube tip in the proximal stomach. Side port at the GE junction. There are perihilar interstitial opacities, increased from the prior exam possibly related to pulmonary edema. No definite pleural effusion. No pneumothorax. Impression: Satisfactory endotracheal intubation. Enteric tube tip in the stomach. Interval worsening of interstitial and probably perihilar airspace opacities thought to related to pulmonary edema. Superimposed pneumonia not entirely excluded. Clinical correlation and follow-up exam recommended. This corresponds with the statrad preliminary report. Microbiology Date/Time Source Procedure Growth Status 01/05/18 14:30 Blood Blood Culture - Preliminary Gram Negative Ham Gram Positive Cocci Resulted 01/05/18 14:20 Blood Blood Culture - Preliminary NO GROWTH AFTER 24 HOURS Resulted 01/05/18 14:30 Nasal Nares Influenza Types A,B Antigen (LULU) - Final Complete Laboratory Tests Test 01/06/18 20:15 01/07/18 04:00 01/07/18 10:05 Lactic Acid Level 4.60 mmol/L (0.66-2.22) H 3.30 mmol/L (0.66-2.22) H 2.40 mmol/L (0.66-2.22) H White Blood Count 19.2 K/UL (4.8-10.8) H Red Blood Count 3.93 M/UL (4.70-6.10) L Hemoglobin 11.7 G/DL (14.2-18.0) L Hematocrit 33.6 % (42.0-52.0) L Mean Corpuscular Volume 86 FL (80-99) Mean Corpuscular Hemoglobin 29.7 PG (27.0-31.0) Mean Corpuscular Hemoglobin Concent 34.8 G/DL (32.0-36.0) Red Cell Distribution Width 13.2 % (11.6-14.8) Platelet Count 220 K/UL (150-450) Mean Platelet Volume 8.0 FL (6.5-10.1) Neutrophils (%) (Auto) % (45.0-75.0) Lymphocytes (%) (Auto) % (20.0-45.0) Monocytes (%) (Auto) % (1.0-10.0) Eosinophils (%) (Auto) % (0.0-3.0) Basophils (%) (Auto) % (0.0-2.0) Differential Total Cells Counted 100 Neutrophils % (Manual) 86 % (45-75) H Lymphocytes % (Manual) 6 % (20-45) L Monocytes % (Manual) 8 % (1-10) Eosinophils % (Manual) 0 % (0-3) Basophils % (Manual) 0 % (0-2) Band Neutrophils 0 % (0-8) Platelet Estimate Adequate Platelet Morphology Normal Hypochromasia 1+ Sodium Level 135 MMOL/L (136-145) L Potassium Level 4.5 MMOL/L (3.5-5.1) Chloride Level 101 MMOL/L (98-107) Carbon Dioxide Level 18 MMOL/L (21-32) L Anion Gap 16 mmol/L (5-15) H Blood Urea Nitrogen 45 mg/dL (7-18) H Creatinine 3.1 MG/DL (0.55-1.30) #H Estimat Glomerular Filtration Rate 20.2 mL/min (>60) Glucose Level 351 MG/DL (74-106) H Calcium Level 7.8 MG/DL (8.5-10.1) L Phosphorus Level 3.8 MG/DL (2.5-4.9) Magnesium Level 1.6 MG/DL (1.8-2.4) L Total Creatine Kinase 565 U/L (26-308) H Troponin I 6.454 ng/mL (0.000-0.056) Phenytoin (Dilantin) Level 8.4 ug/mL (10-20) L Current Medications Medications (Trade) Dose Ordered Sig/Tyrell Route PRN Reason Start Time Stop Time Status Last Admin Dose Admin Acetaminophen (Tylenol) 650 mg Q6H PRN GT Mild Pain/Temp > 100.5 01/06/18 11:15 02/05/18 11:14 01/06/18 11:29 Aspirin (ASA) 81 mg DAILY ORAL 01/06/18 09:00 02/05/18 08:59 01/07/18 09:24 Atenolol (Tenormin) 50 mg DAILY ORAL 01/06/18 09:00 02/05/18 08:59 01/06/18 09:43 Atorvastatin Calcium (Lipitor) 20 mg BEDTIME ORAL 01/06/18 21:00 02/05/18 20:59 01/06/18 21:25 Bumetanide 10 mg/ Dextrose 100 ml @ 5 mls/hr Q20H IVLG 01/06/18 15:30 02/05/18 15:29 01/07/18 09:25 Calcium Carbonate (Tums) 500 mg BID PRN ORAL HEARTBURN 01/06/18 09:00 02/04/18 19:03 Chlorhexidine Gluconate (Debi-Hex 2%) 1 applic DAILY@2000 TOPIC 01/06/18 20:00 02/05/18 19:59 01/06/18 20:12 Dextrose (Dextrose 50%) 25 ml STAT PRN IV Hypoglycemia BS 60-69mg/dl 01/06/18 06:13 02/05/18 06:12 Dextrose (Dextrose 50%) 50 ml STAT PRN IV Hypoglycemia BS less than 60mg 01/06/18 06:13 02/05/18 06:12 Dorzolamide HCl (Trusopt) 1 drop TID BOTH EYES 01/06/18 09:00 02/04/18 17:59 01/07/18 13:13 Enoxaparin Sodium (Lovenox) 60 mg EVERY 12 HOURS SUBQ 01/07/18 09:00 02/06/18 08:59 01/07/18 09:27 Famotidine (Pepcid) 20 mg BEDTIME ORAL 01/06/18 21:00 02/04/18 20:59 01/06/18 21:25 Levetiracetam 100 ml @ 400 mls/hr Q12HR IVPB 01/06/18 21:00 02/05/18 20:59 01/07/18 09:24 Linezolid 300 ml @ 300 mls/hr Q12H IVPB 01/07/18 15:30 01/14/18 15:29 Norepinephrine Bitartrate 4 mg/ Dextrose 250 ml @ 0 mls/hr Q24H IV 01/06/18 05:00 02/05/18 04:59 01/06/18 20:03 Ondansetron HCl (Zofran) 4 mg Q6H PRN IVP Nausea & Vomiting 01/06/18 07:15 02/04/18 19:07 Piperacillin Sod/ Tazobactam Sod 3.375 gm/Dextrose 100 ml @ 25 mls/hr Q8H IVPB 01/06/18 13:00 01/12/18 20:59 01/07/18 13:13 Pregabalin (Lyrica) 150 mg DAILY@1700 ORAL 01/06/18 17:00 02/05/18 16:59 01/06/18 18:47 TRES AL January 07, 2018 15:04
--- NOTE | 2018-01-07 16:16 | Neurology Progress Note ---
Interim History Interim History Interim History Mr. Salas Ellington continues to be comatose. There has been no significant change in his condition. He has stopped decerebrating. His myoclonic jerks have also stopped. He is still on pressors for cardiac support. He is still on a ventilator for respiratory support. He has a fever now. Review of Systems Neuro Review of Systems Unable to obtain. Objective Physical Exam Last Vital Signs Date Time Temp Pulse Resp B/P (MAP) Pulse Ox O2 Delivery O2 Flow Rate FiO2 01/07/18 15:02 102.5 01/07/18 15:00 73 25 142/63 98 Mechanical Ventilator 50 01/05/18 18:15 2.0 Laboratory Tests Test 01/06/18 20:15 01/07/18 04:00 01/07/18 10:05 Lactic Acid Level 4.60 mmol/L (0.66-2.22) H 3.30 mmol/L (0.66-2.22) H 2.40 mmol/L (0.66-2.22) H White Blood Count 19.2 K/UL (4.8-10.8) H Red Blood Count 3.93 M/UL (4.70-6.10) L Hemoglobin 11.7 G/DL (14.2-18.0) L Hematocrit 33.6 % (42.0-52.0) L Mean Corpuscular Volume 86 FL (80-99) Mean Corpuscular Hemoglobin 29.7 PG (27.0-31.0) Mean Corpuscular Hemoglobin Concent 34.8 G/DL (32.0-36.0) Red Cell Distribution Width 13.2 % (11.6-14.8) Platelet Count 220 K/UL (150-450) Mean Platelet Volume 8.0 FL (6.5-10.1) Neutrophils (%) (Auto) % (45.0-75.0) Lymphocytes (%) (Auto) % (20.0-45.0) Monocytes (%) (Auto) % (1.0-10.0) Eosinophils (%) (Auto) % (0.0-3.0) Basophils (%) (Auto) % (0.0-2.0) Differential Total Cells Counted 100 Neutrophils % (Manual) 86 % (45-75) H Lymphocytes % (Manual) 6 % (20-45) L Monocytes % (Manual) 8 % (1-10) Eosinophils % (Manual) 0 % (0-3) Basophils % (Manual) 0 % (0-2) Band Neutrophils 0 % (0-8) Platelet Estimate Adequate Platelet Morphology Normal Hypochromasia 1+ Sodium Level 135 MMOL/L (136-145) L Potassium Level 4.5 MMOL/L (3.5-5.1) Chloride Level 101 MMOL/L (98-107) Carbon Dioxide Level 18 MMOL/L (21-32) L Anion Gap 16 mmol/L (5-15) H Blood Urea Nitrogen 45 mg/dL (7-18) H Creatinine 3.1 MG/DL (0.55-1.30) #H Estimat Glomerular Filtration Rate 20.2 mL/min (>60) Glucose Level 351 MG/DL (74-106) H Calcium Level 7.8 MG/DL (8.5-10.1) L Phosphorus Level 3.8 MG/DL (2.5-4.9) Magnesium Level 1.6 MG/DL (1.8-2.4) L Total Creatine Kinase 565 U/L (26-308) H Troponin I 6.454 ng/mL (0.000-0.056) Phenytoin (Dilantin) Level 8.4 ug/mL (10-20) L Neurologic Exam Objective PHYSICAL EXAMINATION: GENERAL: He is a well-developed, relatively well-nourished, [place] gentleman , lying in an ICU bed, connected to a ventilator via an oral tracheal tube. HEAD: Normocephalic and atraumatic. EENT: Examination benign. NECK: No neck rigidity was observed. NEUROLOGIC EXAMINATION: MENTAL STATUS EXAMINATION: He was comatose and did not respond even to deep painful stimuli. Further mental status testing was impossible. He did, however, exhibit reflex withdrawal of both lower extremities on deep pain. SPEECH: Could not be tested. LANGUAGE: Could not be tested. CRANIAL NERVE EXAMINATION: II: He did not blink to threat. III, IV & : The external ocular movements were present, but significantly diminished on oculocephalic maneuvers. The pupils were 3 mm in diameter and nonreactive. V & VII: The corneal reflexes were present bilaterally. VIII: He did not respond to sounds and had no nystagmus. IX & X: The gag reflex was absent on manipulating the endotracheal tube. XI: The sternocleidomastoids and trapezii did not function. XII: Could not be tested. MOTOR SYSTEM: The tone was normal in all four extremities. Examination of muscle mass revealed no focal wasting. Examination of power could not be performed because even on applying deep painful stimuli, he only withdrew in his lower extremities reflexly and n movements were seen in the upper extremities. SENSORY EXAMINATION: He did respond to deep pain at the spinal level in the lower extremities only. REFLEXES: 2++ and bilaterally symmetrical at the biceps, triceps, brachioradialis, and knees and 0 at both ankles. The plantar responses were extensor bilaterally. COORDINATION, STANCE & GAIT: Could not be tested. ABNORMAL MOVEMENTS: None. Impression/Recommendations Diagnostic Impression 1. Mr. Ibrahima Ellington is a 67-year-old, right-handed, gentleman, who does have a past history of hypertension, diabetes mellitus, dyslipidemia, benign prostatic hypertrophy, neuropathy, gallstones, and pancreatitis, who was hospitalized on 01/05/2018 for urinary sepsis and a possible acute myocardial infarction. In the early hours of 01/06/2018, he was noted to be bradycardic following a bout of nausea and vomiting and then became unresponsive. A Code Blue was called and he had to be intubated, had chest compressions, had to be given epinephrine, and then there was a return of pulse and blood pressure. There was an 8-minute period, where a blood pressure and pulse could not be recorded. Since then, the patient has been comatose and had been exhibiting some abnormal movements, which were labeled seizures. 2. He continues to be comatose. There has been no significant change in his condition. He has stopped decerebrating. His myoclonic jerks have also stopped. He is still on pressors for cardiac support. He is still on a ventilator for respiratory support. He has a fever now. 3. On neurological examination, at this time, he is comatose and only responds to deep pain with reflex withdrawal in both lower extremities. He does have minimal eye movements on oculocephalic maneuvers and subdued corneal reflexes bilaterally. He does not respond to pain in the upper extremities and and withdraws his lower extremities to deep pain. His deep tendon reflexes are brisk and he exhibits extensor plantar responses bilaterally. 4. His laboratory data on my initial evaluation revealed a WBC count elevated at 16,400 and anemia with a hemoglobin of 10.8. Sodium at 135, BUN elevated at 24 with a creatinine of 1.5, and glucose elevated at 275. Hemoglobin A1c at 12.3%. Lactic acidosis at 6.8. Elevated liver function tests. Elevated troponins. Low albumin at 2.2. High TSH at 4.29. His urinalysis reveals 1+ leukocyte esterase and 2-4 red blood cells and 2-4 white blood cells per high- power field. His arterial blood gas performed at 09:12 hours on 01/06/18 revealed a pH of 7.27, a pCO2 of 31.9, and a pO2 of 60.4. 5. The EEG revealed signs of a moderately severe encephalopathy and no reactivity to external stimuli. However, no inter-ictal or ictal discharges were seen. 6. 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 7. His myoclonus has resolved, however he is still severely encephalopathic. Recommendations 1. Continue present management. 2. Continue Keppra 500 mg IV q.[address] scan of the brain without contrast to evaluate the patient for catastrophic intracranial pathology. 4. The patient should be observed closely for a total of 72 hours following his CPA to help us prognosticate on his neurological recovery. Jose C Corey M.D., M.S.P.H. JOSE C COREY January 07, 2018 16:16
[2018-01-07] MEDS: Lyrica 75mg cap ORAL SCH (17:18)
--- NOTE | 2018-01-07 19:15 | Electroencephalogram ---
DATE OF PROCEDURE: 01/07/2018 REQUESTING PHYSICIAN: Shreyas Priest M.D. HISTORY: This EEG was performed on a 67-year-old gentleman, who had a cardiopulmonary arrest. The patient has had an alteration in his mental state and has been exhibiting some abnormal limb movements and mouth movements and thus this EEG was performed to evaluate the patient for the degree and type of cerebral dysfunction and to exclude ongoing ictal or interictal phenomena. TECHNICAL NOTE: This EEG was performed on [employer] with electrodes placed on the scalp according to the International 10-20 system. Hufgy-tq-cbyon and paxik-ny-fmv montages were used. The EEG was technically satisfactory and was performed while the patient was in an unresponsive state. OBSERVATIONS: In the reportedly unresponsive state, the background activity consisted of low amplitude 5-6 Hz theta and 1.5-2 Hz delta activity. Multiple external stimuli were applied during the EEG and no reactivity to external stimulation was noted. No definite focal abnormalities or epileptiform discharges were seen. IMPRESSION: This is an abnormal EEG characterized by: 1. A low amplitude and slow background in the 5-6 Hz theta and 1.5-2 Hz delta range. 2. No reactivity to external stimulation. COMMENT: This study is consistent with an encephalopathy of a moderately severe degree. Jose C Corey M.D., M.S.P.H. DR: YONI JOB#: [id number] HE[facility] SYSTEMDom
[2018-01-07 19:21] LABS: APPEARANCE,URINE CLOUDY; BILIRUBIN, URINE NEGATIVE (NEGATIVE); COLOR,URINE AMBER; GLUCOSE, URINE (UA) NEGATIVE (NEGATIVE); KETONES,URINE NEGATIVE (NEGATIVE); LEUKOCYTE ESTERASE ,URINE 1+ (NEGATIVE); NITRITE,URINE NEGATIVE (NEGATIVE); PH,URINE 5 (4.5-8.0); PROTEIN,URINE 2+ (NEGATIVE); UROBILINOGEN,URINE NORMAL MG/DL (0.0-1.0)
[2018-01-07] MEDS: Dyna-Hex 2% Top Sol 2oz TOPIC SCH (19:51)
[2018-01-07] MEDS: Zosyn 2.25 gm in D5W 55ml IV SCH (19:56)
--- NOTE | 2018-01-07 19:57 | Pulmonolgy Critical Care Note ---
Critical Care - Asmt/Plan Assessment/Plan: 1. Urinary sepsis likely although UA neg; US pending to r/o obstruction 2. Acute myocardial infarction. 3. DM, HTN. HLD 5. Hyperlipidemia. 6. s/p arrest 7. resp failure 8. oliguric ROSA M 9. hepatic disorder monitor respiratory status pressors to maintain MAP greater than 65 mmhg nebs and suction NPO for now, watch bs dvt prohpylaxis diuresis as bp will tolerate prognosis poor Critical Care - Objective Last 24 Hour Vital Signs Date Time Temp Pulse Resp B/P (MAP) Pulse Ox O2 Delivery O2 Flow Rate FiO2 01/07/18 18:58 58 26 50 01/07/18 18:30 58 23 98/32 100 Mechanical Ventilator 50 01/07/18 18:00 61 27 100/38 100 Mechanical Ventilator 50 01/07/18 18:00 100/38 01/07/18 17:30 61 24 46/44 100 Mechanical Ventilator 50 01/07/18 17:18 99.7 01/07/18 17:00 63 24 88/43 99 Mechanical Ventilator 50 01/07/18 17:00 91/48 01/07/18 16:37 63 20 50 01/07/18 16:30 64 23 93/50 98 Mechanical Ventilator 50 01/07/18 16:00 50 01/07/18 16:00 65 01/07/18 16:00 99.5 64 21 102/52 99 Mechanical Ventilator 50 99.5 01/07/18 16:00 121/61 01/07/18 15:59 99.9 01/07/18 15:30 67 21 107/55 99 Mechanical Ventilator 50 01/07/18 15:02 102.5 01/07/18 15:00 73 25 142/63 98 Mechanical Ventilator 50 01/07/18 15:00 142/63 01/07/18 14:48 84 30 50 01/07/18 14:45 83 30 165/78 96 Mechanical Ventilator 50 01/07/18 14:30 85 30 145/84 96 Mechanical Ventilator 50 01/07/18 14:15 73 19 128/65 100 Mechanical Ventilator 50 01/07/18 14:00 118/61 01/07/18 14:00 63 19 118/61 100 Mechanical Ventilator 50 01/07/18 13:45 58 19 111/58 99 Mechanical Ventilator 50 01/07/18 13:30 57 19 114/58 99 Mechanical Ventilator 50 5/5/18 13:15 58 19 100/51 100 Mechanical Ventilator 50 5/5/18 13:00 56 19 102/54 100 Mechanical Ventilator 50 5/5/18 13:00 102/54 5/5/18 12:55 56 18 50 5/5/18 12:45 56 18 102/52 100 Mechanical Ventilator 50 5/5/18 12:30 55 16 95/50 100 Mechanical Ventilator 50 5/5/18 12:15 55 15 94/48 100 Mechanical Ventilator 50 5/5/18 12:00 55 5/5/18 12:00 50 5/5/18 12:00 99.0 55 15 91/51 100 Mechanical Ventilator 50 99.0 5/5/18 12:00 91/51 5/5/18 11:45 55 15 95/51 100 Mechanical Ventilator 50 5/5/18 11:30 55 19 98/51 100 Mechanical Ventilator 50 5/5/18 11:15 55 19 104/54 100 Mechanical Ventilator 50 5/5/18 11:00 55 19 104/54 100 Mechanical Ventilator 50 5/5/18 11:00 104/54 5/5/18 10:49 55 20 50 5/5/18 10:45 55 18 98/52 100 Mechanical Ventilator 60 5/5/18 10:30 55 19 98/53 100 Mechanical Ventilator 60 5/5/18 10:15 55 20 101/54 100 Mechanical Ventilator 60 5/5/18 10:00 104/55 5/5/18 10:00 56 15 104/55 100 Mechanical Ventilator 60 5/5/18 09:30 56 19 104/57 100 Mechanical Ventilator 60 5/5/18 09:00 55 16 103/54 100 Mechanical Ventilator 60 5/5/18 09:00 56 106/56 5/5/18 09:00 103/54 5/5/18 08:44 56 17 60 5/5/18 08:30 56 18 106/57 100 Mechanical Ventilator 70 5/5/18 08:00 99.0 55 16 104/55 100 Mechanical Ventilator 70 99.0 5/5/18 08:00 70 5/5/18 08:00 54 5/5/18 08:00 104/55 5/5/18 07:30 55 19 102/53 100 Mechanical Ventilator 70 5/5/18 07:29 55 20 70 5/5/18 07:00 55 19 94/50 100 Mechanical Ventilator 70 5/5/18 07:00 94/50 5/5/18 06:30 55 16 97/49 100 Mechanical Ventilator 70 5/5/18 06:00 54 16 97/53 100 Mechanical Ventilator 70 5/5/18 05:45 55 20 93/51 100 Mechanical Ventilator 70 5/5/18 05:30 56 22 99/53 100 Mechanical Ventilator 70 5/5/18 05:15 55 22 93/48 100 Mechanical Ventilator 70 5/5/18 05:13 56 23 70 5/5/18 05:00 55 22 91/48 100 Mechanical Ventilator 70 5/5/18 04:45 56 23 97/50 100 Mechanical Ventilator 70 5/5/18 04:30 60 23 105/54 100 Mechanical Ventilator 70 5/5/18 04:15 62 20 111/72 100 Mechanical Ventilator 70 5/5/18 04:00 56 5/5/18 04:00 70 5/5/18 04:00 99.8 61 17 112/55 100 Mechanical Ventilator 70 99.8 5/5/18 03:45 55 22 105/60 100 Mechanical Ventilator 70 5/5/18 03:30 55 22 95/53 100 Mechanical Ventilator 70 5/5/18 03:30 61 22 70 5/5/18 03:15 55 21 95/53 100 Mechanical Ventilator 70 5/5/18 03:00 55 10 95/53 100 Mechanical Ventilator 70 5/5/18 02:00 57 10 90/43 100 Mechanical Ventilator 70 5/5/18 01:30 65 23 70 5/5/18 01:00 62 23 112/59 100 Mechanical Ventilator 70 5/5/18 00:00 98.7 61 25 93/58 100 Mechanical Ventilator 70 98.7 5/5/18 00:00 70 5/5/18 00:00 61 5/4/18 23:26 60 21 70 5/4/18 23:00 71 25 133/89 100 Mechanical Ventilator 70 5/4/18 22:45 63 25 116/58 100 Mechanical Ventilator 70 5/4/18 22:30 61 28 115/69 100 Mechanical Ventilator 70 5/4/18 22:15 62 27 125/63 100 Mechanical Ventilator 70 5/4/18 22:00 63 22 118/65 100 Mechanical Ventilator 70 5/4/18 21:45 62 22 146/85 100 Mechanical Ventilator 70 01/06/18 21:30 59 24 129/67 100 Mechanical Ventilator 70 01/06/18 21:30 61 24 70 01/06/18 21:15 59 24 132/75 100 Mechanical Ventilator 70 01/06/18 21:00 60 26 125/72 100 Mechanical Ventilator 70 01/06/18 20:45 63 22 124/73 100 Mechanical Ventilator 70 01/06/18 20:30 62 26 123/72 100 Mechanical Ventilator 70 01/06/18 20:15 62 27 130/72 100 Mechanical Ventilator 70 01/06/18 20:03 127/67 01/06/18 20:00 98.9 61 26 127/67 100 Mechanical Ventilator 70 98.9 01/06/18 20:00 70 01/06/18 20:00 61 Status: obtunded Condition: critical Lungs: rales Heart: HR/BP unstable Abdomen: soft, non-tender Extremities: edema Decubiti: location Micro: Microbiology Date/Time Source Procedure Growth Status 01/05/18 14:30 Blood Blood Culture - Preliminary Gram Negative Ham Gram Positive Cocci Resulted 01/05/18 14:20 Blood Blood Culture - Preliminary NO GROWTH AFTER 24 HOURS Resulted 01/05/18 14:30 Nasal Nares Influenza Types A,B Antigen (LULU) - Final Complete Accucheck: 351 Blood Sugars: BS not controlled Critical Care - Subjective ROS Limited/Unobtainable: Yes Condition: critical EKG Rhythm: Sinus Rhythm FI02: 50 Vent Support Breath Rate: 15 Vent Support Mode: AC Vent Tidal Volume: 500 Sputum Amount: Scant PEEP: 5.0 PIP: 32 I&O: Intake and Output 01/06/18 01/07/18 19:00 07:00 Intake Total 1364 ml 546.167 ml Output Total 56 ml 880 ml Balance 1308 ml -333.833 ml Free Water 0 ml IV Total 1364 ml 516.167 ml Other 30 ml Output Urine Total 56 ml 880 ml Subjective: obtunded on the vent breathing above the set rate no secretrions fever on pressors positive uop as well ET-Tube: 7.5 ET Position: 23 Labs: Microbiology Date/Time Source Procedure Growth Status 01/05/18 14:30 Blood Blood Culture - Preliminary Gram Negative Ham Gram Positive Cocci Resulted 01/05/18 14:20 Blood Blood Culture - Preliminary NO GROWTH AFTER 24 HOURS Resulted 01/05/18 14:30 Nasal Nares Influenza Types A,B Antigen (LULU) - Final Complete Current Medications Medications (Trade) Dose Ordered Sig/Tyrell Route PRN Reason Start Time Stop Time Status Last Admin Dose Admin Acetaminophen (Tylenol) 650 mg Q6H PRN GT Mild Pain/Temp > 100.5 01/06/18 11:15 02/05/18 11:14 01/07/18 15:02 Aspirin (ASA) 81 mg DAILY ORAL 01/06/18 09:00 02/05/18 08:59 01/07/18 09:24 Atenolol (Tenormin) 50 mg DAILY ORAL 01/06/18 09:00 02/05/18 08:59 01/06/18 09:43 Atorvastatin Calcium (Lipitor) 20 mg BEDTIME ORAL 01/06/18 21:00 02/05/18 20:59 01/06/18 21:25 Bumetanide 10 mg/ Dextrose 100 ml @ 5 mls/hr Q20H IVLG 01/06/18 15:30 02/05/18 15:29 01/07/18 09:25 Calcium Carbonate (Tums) 500 mg BID PRN ORAL HEARTBURN 01/06/18 09:00 02/04/18 19:03 Chlorhexidine Gluconate (Debi-Hex 2%) 1 applic DAILY@2000 TOPIC 01/06/18 20:00 02/05/18 19:59 01/07/18 19:51 Dextrose (Dextrose 50%) 25 ml STAT PRN IV Hypoglycemia BS 60-69mg/dl 01/06/18 06:13 02/05/18 06:12 Dextrose (Dextrose 50%) 50 ml STAT PRN IV Hypoglycemia BS less than 60mg 01/06/18 06:13 02/05/18 06:12 Dorzolamide HCl (Trusopt) 1 drop TID BOTH EYES 01/06/18 09:00 02/04/18 17:59 01/07/18 17:18 Enoxaparin Sodium (Lovenox) 70 mg DAILY SUBQ 01/08/18 09:00 02/07/18 08:59 Famotidine (Pepcid) 20 mg BEDTIME ORAL 01/06/18 21:00 02/04/18 20:59 01/06/18 21:25 Levetiracetam 100 ml @ 400 mls/hr Q12HR IVPB 01/06/18 21:00 02/05/18 20:59 01/07/18 09:24 Linezolid 300 ml @ 300 mls/hr Q12H IVPB 01/07/18 15:30 01/14/18 15:29 01/07/18 15:52 Norepinephrine Bitartrate 4 mg/ Dextrose 250 ml @ 0 mls/hr Q24H IV 01/06/18 05:00 02/05/18 04:59 01/06/18 20:03 Ondansetron HCl (Zofran) 4 mg Q6H PRN IVP Nausea & Vomiting 01/06/18 07:15 02/04/18 19:07 Piperacillin Sod/ Tazobactam Sod 2.25 gm/Dextrose 55 ml @ 110 mls/hr Q6H IV 01/07/18 20:00 01/14/18 19:59 Pregabalin (Lyrica) 150 mg DAILY@1700 ORAL 01/06/18 17:00 02/05/18 16:59 01/07/18 17:18 Laboratory Tests Test 01/06/18 20:15 01/07/18 04:00 01/07/18 10:05 01/07/18 17:00 Lactic Acid Level 4.60 mmol/L (0.66-2.22) H 3.30 mmol/L (0.66-2.22) H 2.40 mmol/L (0.66-2.22) H 2.50 mmol/L (0.66-2.22) H White Blood Count 19.2 K/UL (4.8-10.8) H Red Blood Count 3.93 M/UL (4.70-6.10) L Hemoglobin 11.7 G/DL (14.2-18.0) L Hematocrit 33.6 % (42.0-52.0) L Mean Corpuscular Volume 86 FL (80-99) Mean Corpuscular Hemoglobin 29.7 PG (27.0-31.0) Mean Corpuscular Hemoglobin Concent 34.8 G/DL (32.0-36.0) Red Cell Distribution Width 13.2 % (11.6-14.8) Platelet Count 220 K/UL (150-450) Mean Platelet Volume 8.0 FL (6.5-10.1) Neutrophils (%) (Auto) % (45.0-75.0) Lymphocytes (%) (Auto) % (20.0-45.0) Monocytes (%) (Auto) % (1.0-10.0) Eosinophils (%) (Auto) % (0.0-3.0) Basophils (%) (Auto) % (0.0-2.0) Differential Total Cells Counted 100 Neutrophils % (Manual) 86 % (45-75) H Lymphocytes % (Manual) 6 % (20-45) L Monocytes % (Manual) 8 % (1-10) Eosinophils % (Manual) 0 % (0-3) Basophils % (Manual) 0 % (0-2) Band Neutrophils 0 % (0-8) Platelet Estimate Adequate Platelet Morphology Normal Hypochromasia 1+ Sodium Level 135 MMOL/L (136-145) L Potassium Level 4.5 MMOL/L (3.5-5.1) Chloride Level 101 MMOL/L (98-107) Carbon Dioxide Level 18 MMOL/L (21-32) L Anion Gap 16 mmol/L (5-15) H Blood Urea Nitrogen 45 mg/dL (7-18) H Creatinine 3.1 MG/DL (0.55-1.30) #H Estimat Glomerular Filtration Rate 20.2 mL/min (>60) Glucose Level 351 MG/DL (74-106) H Calcium Level 7.8 MG/DL (8.5-10.1) L Phosphorus Level 3.8 MG/DL (2.5-4.9) Magnesium Level 1.6 MG/DL (1.8-2.4) L Total Creatine Kinase 565 U/L (26-308) H Troponin I 6.454 ng/mL (0.000-0.056) 4.924 ng/mL (0.000-0.056) Phenytoin (Dilantin) Level 8.4 ug/mL (10-20) L Test 01/07/18 19:00 Urine Color Meghan Urine Appearance Cloudy Urine pH 5 (4.5-8.0) Urine Specific [place] 1.015 (1.005-1.035) Urine Protein 2+ (NEGATIVE) H Urine Glucose (UA) Negative (NEGATIVE) Urine Ketones Negative (NEGATIVE) Urine Occult Blood 4+ (NEGATIVE) H Urine Nitrite Negative (NEGATIVE) Urine Bilirubin Negative (NEGATIVE) Urine Ictotest Negative Urine Urobilinogen Normal MG/DL (0.0-1.0) Urine Leukocyte Esterase 1+ (NEGATIVE) H Urine RBC 10-15 /HPF (0 - 0) H Urine WBC 5-10 /HPF (0 - 0) H Urine Squamous Epithelial Cells Few /LPF (NONE/OCC) Urine Bacteria Moderate /HPF (NONE) H SKINNY CALDERON DO January 07, 2018 19:57
[2018-01-07] MEDS ORDERED: Piperacillin/Tazobactam 3.375 GM in D5W 110 ML IVPB SCH (21:00)
[2018-01-07] MEDS: Atorvastatin 20mg tab ORAL SCH (21:01)
[2018-01-08] VITALS (30 sets, daily range): BP systolic 91–161; BP diastolic 38–64
[2018-01-08] MEDS: Zosyn 2.25 gm in D5W 55ml IV SCH ×4 (01:48→20:13)
[2018-01-08 05:34] LABS: BASOPHILS % (AUTO) 0.3 % (0.0-2.0); EOSINOPHILS % (AUTO) 0.2 % (0.0-3.0); HEMATOCRIT 34.2 % (42.0-52.0); HEMOGLOBIN 11.4 G/DL (14.2-18.0); LYMPHOCYTES % (AUTO) 10.2 % (20.0-45.0); MEAN CORPUSCULAR VOLUME 86 FL (80-99); MONOCYTES % (AUTO) 5.7 % (1.0-10.0); NEUTROPHILS % (AUTO) 83.6 % (45.0-75.0); PLATELET COUNT 190 K/UL (150-450); RED BLOOD COUNT 3.99 M/UL (4.70-6.10); RED CELL DISTRIBUTION WIDTH 13.6 % (11.6-14.8); WHITE BLOOD COUNT 14.8 K/UL (4.8-10.8)
[2018-01-08 06:08] LABS: ALANINE AMINOTRANSFERASE 429 U/L (12-78); ALBUMIN 1.8 G/DL (3.4-5.0); ALBUMIN/GLOBULIN RATIO 0.4 (1.0-2.7); ALKALINE PHOSPHATASE 174 U/L (46-116); ANION GAP 14 mmol/L (5-15); ASPARTATE AMINO TRANSFERASE 213 U/L (15-37); BILIRUBIN,TOTAL 1.9 MG/DL (0.2-1.0); BLOOD UREA NITROGEN 64 mg/dL (7-18); CALCIUM 7.8 MG/DL (8.5-10.1); CARBON DIOXIDE 21 MMOL/L (21-32); CHLORIDE 99 MMOL/L (98-107); CREATININE 3.9 MG/DL (0.55-1.30); POTASSIUM 3.8 MMOL/L (3.5-5.1); SODIUM 134 MMOL/L (136-145)
[2018-01-08 06:45] LABS: BILIRUBIN,DIRECT 1.1 MG/DL (0.0-0.3)
--- NOTE | 2018-01-08 07:04 | Pulmonolgy Critical Care Note ---
Critical Care - Asmt/Plan Assessment/Plan: 1. Urinary sepsis likely although UA neg; US pending to r/o obstruction 2. Acute myocardial infarction. 3. DM, HTN. HLD 5. Hyperlipidemia. 6. s/p arrest 7. resp failure 8. oliguric ROSA M 9. hepatic disorder monitor respiratory status pressors to maintain MAP greater than 65 mmhg nebs and suction NPO for now, watch bs, sliding scale added dvt prohpylaxis diuresis as bp will tolerate prognosis poor no family at the bedside Respiratory: adjust tidal volume, CXR, ABG Cardiac: continue pressors, continue to monitor HR/BP Gastrointestinal: continue feedings/current rate Prophylaxis: Protonix, Heparin Time Spent (Minutes): 40 Notes Reviewed: cardio, renal Discussed with: nurses Critical Care - Objective Last 24 Hour Vital Signs Date Time Temp Pulse Resp B/P (MAP) Pulse Ox O2 Delivery O2 Flow Rate FiO2 01/08/18 06:00 53 20 116/38 100 Mechanical Ventilator 50 01/08/18 05:30 53 19 119/40 100 Mechanical Ventilator 50 01/08/18 05:05 53 19 50 01/08/18 05:00 52 19 118/38 100 Mechanical Ventilator 50 01/08/18 05:00 114/39 01/08/18 04:30 53 19 117/43 100 Mechanical Ventilator 50 01/08/18 04:00 98.8 53 19 113/41 100 Mechanical Ventilator 50 98.8 01/08/18 04:00 50 01/08/18 04:00 113/41 01/08/18 03:30 53 19 91/50 100 Mechanical Ventilator 50 01/08/18 03:09 54 01/08/18 03:04 53 19 50 01/08/18 03:00 54 20 107/48 100 Mechanical Ventilator 50 01/08/18 03:00 107/48 01/08/18 02:30 54 19 108/45 100 Mechanical Ventilator 50 01/08/18 02:00 110/45 01/08/18 02:00 53 19 107/50 100 Mechanical Ventilator 50 01/08/18 01:30 54 19 108/40 100 Mechanical Ventilator 50 01/08/18 01:03 61 18 50 5//18 01:00 106/40 518 01:00 54 20 106/40 100 Mechanical Ventilator 50 01/08/18 00:00 50 5/6/18 00:00 104/45 5/6/18 00:00 99.3 54 21 110/43 100 Mechanical Ventilator 50 99.3 5/5/18 23:33 57 5/5/18 23:30 55 20 98/35 100 Mechanical Ventilator 50 5/5/18 23:29 55 20 50 5/5/18 23:00 102/49 5/5/18 23:00 55 20 102/49 100 Mechanical Ventilator 50 5/5/18 22:30 55 22 102/38 100 Mechanical Ventilator 50 5/5/18 22:00 98/43 5/5/18 22:00 55 21 101/42 100 Mechanical Ventilator 50 5/5/18 21:30 55 20 96/42 100 Mechanical Ventilator 50 5/5/18 21:25 58 26 50 5/5/18 21:00 56 21 100/44 100 Mechanical Ventilator 50 5/5/18 21:00 100/44 5/5/18 20:30 56 21 95/41 100 Mechanical Ventilator 50 5/5/18 20:00 50 5/5/18 20:00 98/44 5/5/18 20:00 97.5 57 23 98/44 100 Mechanical Ventilator 50 97.5 5/5/18 19:30 57 24 90/28 100 Mechanical Ventilator 50 5/5/18 19:18 57 5/5/18 19:00 105/42 5/5/18 19:00 58 26 105/42 100 Mechanical Ventilator 50 5/5/18 18:58 58 26 50 5/5/18 18:30 58 23 98/32 100 Mechanical Ventilator 50 5/5/18 18:00 61 27 100/38 100 Mechanical Ventilator 50 5/5/18 18:00 100/38 5/5/18 17:30 61 24 46/44 100 Mechanical Ventilator 50 5/5/18 17:18 99.7 5/5/18 17:00 63 24 88/43 99 Mechanical Ventilator 50 5/5/18 17:00 91/48 5/5/18 16:37 63 20 50 5/5/18 16:30 64 23 93/50 98 Mechanical Ventilator 50 5/5/18 16:00 50 5/5/18 16:00 65 5/5/18 16:00 99.5 64 21 102/52 99 Mechanical Ventilator 50 99.5 5/5/18 16:00 121/61 5/5/18 15:59 99.9 5/5/18 15:30 67 21 107/55 99 Mechanical Ventilator 50 5/5/18 15:02 102.5 5/5/18 15:00 73 25 142/63 98 Mechanical Ventilator 50 5/5/18 15:00 142/63 5/5/18 14:48 84 30 50 5/5/18 14:45 83 30 165/78 96 Mechanical Ventilator 50 5/5/18 14:30 85 30 145/84 96 Mechanical Ventilator 50 5/5/18 14:15 73 19 128/65 100 Mechanical Ventilator 50 5/5/18 14:00 118/61 5/5/18 14:00 63 19 118/61 100 Mechanical Ventilator 50 5/5/18 13:45 58 19 111/58 99 Mechanical Ventilator 50 5/5/18 13:30 57 19 114/58 99 Mechanical Ventilator 50 5/5/18 13:15 58 19 100/51 100 Mechanical Ventilator 50 5/5/18 13:00 56 19 102/54 100 Mechanical Ventilator 50 5/5/18 13:00 102/54 5/5/18 12:55 56 18 50 5/5/18 12:45 56 18 102/52 100 Mechanical Ventilator 50 5/5/18 12:30 55 16 95/50 100 Mechanical Ventilator 50 5/5/18 12:15 55 15 94/48 100 Mechanical Ventilator 50 5/5/18 12:00 55 5/5/18 12:00 50 5/5/18 12:00 99.0 55 15 91/51 100 Mechanical Ventilator 50 99.0 5/5/18 12:00 91/51 5/5/18 11:45 55 15 95/51 100 Mechanical Ventilator 50 5/5/18 11:30 55 19 98/51 100 Mechanical Ventilator 50 5/5/18 11:15 55 19 104/54 100 Mechanical Ventilator 50 5/5/18 11:00 55 19 104/54 100 Mechanical Ventilator 50 5/5/18 11:00 104/54 5/5/18 10:49 55 20 50 5/5/18 10:45 55 18 98/52 100 Mechanical Ventilator 60 5/5/18 10:30 55 19 98/53 100 Mechanical Ventilator 60 5/5/18 10:15 55 20 101/54 100 Mechanical Ventilator 60 5/5/18 10:00 104/55 5/5/18 10:00 56 15 104/55 100 Mechanical Ventilator 60 01/07/18 09:30 56 19 104/57 100 Mechanical Ventilator 60 01/07/18 09:00 55 16 103/54 100 Mechanical Ventilator 60 01/07/18 09:00 56 106/56 01/07/18 09:00 103/54 01/07/18 08:44 56 17 60 01/07/18 08:30 56 18 106/57 100 Mechanical Ventilator 70 01/07/18 08:00 99.0 55 16 104/55 100 Mechanical Ventilator 70 99.0 01/07/18 08:00 70 01/07/18 08:00 54 01/07/18 08:00 104/55 01/07/18 07:30 55 19 102/53 100 Mechanical Ventilator 70 01/07/18 07:29 55 20 70 Status: obtunded Condition: critical Lungs: rhonchi Heart: HR/BP unstable Abdomen: soft, non-tender Extremities: edema Decubiti: location Micro: Microbiology Date/Time Source Procedure Growth Status 01/05/18 14:30 Blood Blood Culture - Preliminary Gram Negative Ham Gram Positive Cocci Resulted 01/05/18 14:20 Blood Blood Culture - Preliminary NO GROWTH AFTER 48 HOURS Resulted 01/05/18 14:30 Nasal Nares Influenza Types A,B Antigen (LULU) - Final Complete Accucheck: 449 Blood Sugars: BS not controlled Critical Care - Subjective ROS Limited/Unobtainable: Yes Condition: critical EKG Rhythm: Sinus Rhythm FI02: 50 Vent Support Breath Rate: 15 Vent Support Mode: AC Vent Tidal Volume: 500 Sputum Amount: Scant PEEP: 5.0 PIP: 28 Tube Feeding Amount: 20 I&O: Intake and Output 01/07/18 01/08/18 19:00 07:00 Intake Total 608.125 ml 713.750 ml Output Total 1730 ml 725 ml Balance -1121.875 ml -11.250 ml IV Total 538.125 ml 583.750 ml Tube Feeding 80 ml Other 70 ml 50 ml Output Urine Total 1730 ml 725 ml Subjective: obtunded on the vent breathing above the set rate BS elevated hx of dm no secretrions fever on pressors positive uop as well tropoins trending ET-Tube: 7.5 ET Position: 25 Labs: Microbiology Date/Time Source Procedure Growth Status 01/05/18 14:30 Blood Blood Culture - Preliminary Gram Negative Ham Gram Positive Cocci Resulted 01/05/18 14:20 Blood Blood Culture - Preliminary NO GROWTH AFTER 48 HOURS Resulted 01/05/18 14:30 Nasal Nares Influenza Types A,B Antigen (LULU) - Final Complete Current Medications Medications (Trade) Dose Ordered Sig/Tyrell Route PRN Reason Start Time Stop Time Status Last Admin Dose Admin Acetaminophen (Tylenol) 650 mg Q6H PRN GT Mild Pain/Temp > 100.5 01/06/18 11:15 02/05/18 11:14 01/07/18 15:02 Aspirin (ASA) 81 mg DAILY ORAL 01/06/18 09:00 02/05/18 08:59 01/07/18 09:24 Atenolol (Tenormin) 50 mg DAILY ORAL 01/06/18 09:00 02/05/18 08:59 01/06/18 09:43 Atorvastatin Calcium (Lipitor) 20 mg BEDTIME ORAL 01/06/18 21:00 02/05/18 20:59 01/07/18 21:01 Bumetanide 10 mg/ Dextrose 100 ml @ 5 mls/hr Q20H IVLG 01/06/18 15:30 02/05/18 15:29 01/07/18 09:25 Calcium Carbonate (Tums) 500 mg BID PRN ORAL HEARTBURN 01/06/18 09:00 02/04/18 19:03 Chlorhexidine Gluconate (Debi-Hex 2%) 1 applic DAILY@2000 TOPIC 01/06/18 20:00 02/05/18 19:59 01/07/18 19:51 Dextrose (Dextrose 50%) 25 ml STAT PRN IV Hypoglycemia BS 60-69mg/dl 01/06/18 06:13 02/05/18 06:12 Dextrose (Dextrose 50%) 50 ml STAT PRN IV Hypoglycemia BS less than 60mg 01/06/18 06:13 02/05/18 06:12 Dorzolamide HCl (Trusopt) 1 drop TID BOTH EYES 01/06/18 09:00 02/04/18 17:59 01/07/18 17:18 Enoxaparin Sodium (Lovenox) 70 mg DAILY SUBQ 01/08/18 09:00 02/07/18 08:59 Famotidine (Pepcid) 20 mg BEDTIME ORAL 01/06/18 21:00 02/04/18 20:59 01/07/18 21:01 Levetiracetam 100 ml @ 400 mls/hr Q12HR IVPB 01/06/18 21:00 02/05/18 20:59 01/07/18 21:00 Linezolid 300 ml @ 300 mls/hr Q12H IVPB 01/07/18 15:30 01/14/18 15:29 01/08/18 03:08 Norepinephrine Bitartrate 4 mg/ Dextrose 250 ml @ 0 mls/hr Q24H IV 01/06/18 05:00 02/05/18 04:59 01/06/18 20:03 Ondansetron HCl (Zofran) 4 mg Q6H PRN IVP Nausea & Vomiting 01/06/18 07:15 02/04/18 19:07 Piperacillin Sod/ Tazobactam Sod 2.25 gm/Dextrose 55 ml @ 110 mls/hr Q6H IV 01/07/18 20:00 01/14/18 19:59 01/08/18 01:48 Pregabalin (Lyrica) 150 mg DAILY@1700 ORAL 01/06/18 17:00 02/05/18 16:59 01/07/18 17:18 Laboratory Tests Test 01/07/18 10:05 01/07/18 17:00 01/07/18 19:00 01/08/18 04:00 Lactic Acid Level 2.40 mmol/L (0.66-2.22) H 2.50 mmol/L (0.66-2.22) H Troponin I 4.924 ng/mL (0.000-0.056) 4.012 ng/mL (0.000-0.056) Urine Color Meghan Urine Appearance Cloudy Urine pH 5 (4.5-8.0) Urine Specific [place] 1.015 (1.005-1.035) Urine Protein 2+ (NEGATIVE) H Urine Glucose (UA) Negative (NEGATIVE) Urine Ketones Negative (NEGATIVE) Urine Occult Blood 4+ (NEGATIVE) H Urine Nitrite Negative (NEGATIVE) Urine Bilirubin Negative (NEGATIVE) Urine Ictotest Negative Urine Urobilinogen Normal MG/DL (0.0-1.0) Urine Leukocyte Esterase 1+ (NEGATIVE) H Urine RBC 10-15 /HPF (0 - 0) H Urine WBC 5-10 /HPF (0 - 0) H Urine Squamous Epithelial Cells Few /LPF (NONE/OCC) Urine Bacteria Moderate /HPF (NONE) H White Blood Count 14.8 K/UL (4.8-10.8) H Red Blood Count 3.99 M/UL (4.70-6.10) L Hemoglobin 11.4 G/DL (14.2-18.0) L Hematocrit 34.2 % (42.0-52.0) L Mean Corpuscular Volume 86 FL (80-99) Mean Corpuscular Hemoglobin 28.5 PG (27.0-31.0) Mean Corpuscular Hemoglobin Concent 33.3 G/DL (32.0-36.0) Red Cell Distribution Width 13.6 % (11.6-14.8) Platelet Count 190 K/UL (150-450) Mean Platelet Volume 8.1 FL (6.5-10.1) Neutrophils (%) (Auto) 83.6 % (45.0-75.0) H Lymphocytes (%) (Auto) 10.2 % (20.0-45.0) L Monocytes (%) (Auto) 5.7 % (1.0-10.0) Eosinophils (%) (Auto) 0.2 % (0.0-3.0) Basophils (%) (Auto) 0.3 % (0.0-2.0) Sodium Level 134 MMOL/L (136-145) L Potassium Level 3.8 MMOL/L (3.5-5.1) Chloride Level 99 MMOL/L (98-107) Carbon Dioxide Level 21 MMOL/L (21-32) Anion Gap 14 mmol/L (5-15) Blood Urea Nitrogen 64 mg/dL (7-18) H Creatinine 3.9 MG/DL (0.55-1.30) H Estimat Glomerular Filtration Rate 15.5 mL/min (>60) Glucose Level 477 MG/DL (74-106) #H Calcium Level 7.8 MG/DL (8.5-10.1) L Magnesium Level 1.6 MG/DL (1.8-2.4) L Total Bilirubin 1.9 MG/DL (0.2-1.0) H Direct Bilirubin 1.1 MG/DL (0.0-0.3) H Aspartate Amino Transf (AST/SGOT) 213 U/L (15-37) H Alanine Aminotransferase (ALT/SGPT) 429 U/L (12-78) H Alkaline Phosphatase 174 U/L (46-116) H Total Protein 6.3 G/DL (6.4-8.2) L Albumin 1.8 G/DL (3.4-5.0) L Globulin 4.5 g/dL Albumin/Globulin Ratio 0.4 (1.0-2.7) L SKINNY CALDERON DO January 08, 2018 07:03
[2018-01-08] MEDS: Bumetanide 10 MG in D5W 60 ML IVLG SCH (07:27)
[2018-01-08] MEDS: Aspirin Baby 81mg ORAL SCH (08:34)
[2018-01-08] MEDS: levETIRAcetam 500mg/NS100ml 100 ML IVPB SCH ×2 (08:34→20:13)
[2018-01-08] MEDS: Enoxaparin Sodium 300mg/3ml vial SUBQ SCH (08:36)
[2018-01-08] MEDS: Dorzolamide 2% 10ml Btl BOTH EYES SCH ×3 (10:00→18:18)
--- NOTE | 2018-01-08 10:47 | Neurology Progress Note ---
Interim History Interim History Interim History Mr. Salas Ellington continues to be comatose. There has been no change in his condition. He has stopped decerebrating. His myoclonic jerks have also stopped. He has been off pressors since last night. He is still on a ventilator for respiratory support. His fever has defervesced. He just got back from his brain CT. Review of Systems Neuro Review of Systems Unable to obtain. Objective Physical Exam Last Vital Signs Date Time Temp Pulse Resp B/P (MAP) Pulse Ox O2 Delivery O2 Flow Rate FiO2 01/08/18 08:47 52 21 50 01/08/18 08:35 118/39 01/08/18 07:00 100 Mechanical Ventilator 01/08/18 04:00 98.8 98.8 01/05/18 18:15 2.0 Laboratory Tests Test 01/07/18 17:00 01/07/18 19:00 01/08/18 04:00 Lactic Acid Level 2.50 mmol/L (0.66-2.22) H Troponin I 4.924 ng/mL (0.000-0.056) 4.012 ng/mL (0.000-0.056) Urine Color Meghan Urine Appearance Cloudy Urine pH 5 (4.5-8.0) Urine Specific [place] 1.015 (1.005-1.035) Urine Protein 2+ (NEGATIVE) H Urine Glucose (UA) Negative (NEGATIVE) Urine Ketones Negative (NEGATIVE) Urine Occult Blood 4+ (NEGATIVE) H Urine Nitrite Negative (NEGATIVE) Urine Bilirubin Negative (NEGATIVE) Urine Ictotest Negative Urine Urobilinogen Normal MG/DL (0.0-1.0) Urine Leukocyte Esterase 1+ (NEGATIVE) H Urine RBC 10-15 /HPF (0 - 0) H Urine WBC 5-10 /HPF (0 - 0) H Urine Squamous Epithelial Cells Few /LPF (NONE/OCC) Urine Bacteria Moderate /HPF (NONE) H White Blood Count 14.8 K/UL (4.8-10.8) H Red Blood Count 3.99 M/UL (4.70-6.10) L Hemoglobin 11.4 G/DL (14.2-18.0) L Hematocrit 34.2 % (42.0-52.0) L Mean Corpuscular Volume 86 FL (80-99) Mean Corpuscular Hemoglobin 28.5 PG (27.0-31.0) Mean Corpuscular Hemoglobin Concent 33.3 G/DL (32.0-36.0) Red Cell Distribution Width 13.6 % (11.6-14.8) Platelet Count 190 K/UL (150-450) Mean Platelet Volume 8.1 FL (6.5-10.1) Neutrophils (%) (Auto) 83.6 % (45.0-75.0) H Lymphocytes (%) (Auto) 10.2 % (20.0-45.0) L Monocytes (%) (Auto) 5.7 % (1.0-10.0) Eosinophils (%) (Auto) 0.2 % (0.0-3.0) Basophils (%) (Auto) 0.3 % (0.0-2.0) Sodium Level 134 MMOL/L (136-145) L Potassium Level 3.8 MMOL/L (3.5-5.1) Chloride Level 99 MMOL/L (98-107) Carbon Dioxide Level 21 MMOL/L (21-32) Anion Gap 14 mmol/L (5-15) Blood Urea Nitrogen 64 mg/dL (7-18) H Creatinine 3.9 MG/DL (0.55-1.30) H Estimat Glomerular Filtration Rate 15.5 mL/min (>60) Glucose Level 477 MG/DL (74-106) #H Calcium Level 7.8 MG/DL (8.5-10.1) L Magnesium Level 1.6 MG/DL (1.8-2.4) L Total Bilirubin 1.9 MG/DL (0.2-1.0) H Direct Bilirubin 1.1 MG/DL (0.0-0.3) H Aspartate Amino Transf (AST/SGOT) 213 U/L (15-37) H Alanine Aminotransferase (ALT/SGPT) 429 U/L (12-78) H Alkaline Phosphatase 174 U/L (46-116) H Total Protein 6.3 G/DL (6.4-8.2) L Albumin 1.8 G/DL (3.4-5.0) L Globulin 4.5 g/dL Albumin/Globulin Ratio 0.4 (1.0-2.7) L Neurologic Exam Objective PHYSICAL EXAMINATION: GENERAL: He is a well-developed, relatively well-nourished, gentleman , lying in an ICU bed, connected to a ventilator via an oral tracheal tube. HEAD: Normocephalic and atraumatic. EENT: Examination benign. NECK: No neck rigidity was observed. NEUROLOGIC EXAMINATION: MENTAL STATUS EXAMINATION: He was comatose and did not respond even to deep painful stimuli. Further mental status testing was impossible. He did, however, exhibit reflex withdrawal of both lower extremities on deep pain. SPEECH: Could not be tested. LANGUAGE: Could not be tested. CRANIAL NERVE EXAMINATION: II: He did not blink to threat. III, IV & : The external ocular movements were present, but significantly diminished on oculocephalic maneuvers. The pupils were 3 mm in diameter and nonreactive. V & VII: The corneal reflexes were present bilaterally. VIII: He did not respond to sounds and had no nystagmus. IX & X: The gag reflex was absent on manipulating the endotracheal tube. XI: The sternocleidomastoids and trapezii did not function. XII: Could not be tested. MOTOR SYSTEM: The tone was normal in all four extremities. Examination of muscle mass revealed no focal wasting. Examination of power could not be performed because even on applying deep painful stimuli, he only withdrew in his lower extremities reflexly and no movements were seen in the upper extremities. SENSORY EXAMINATION: He did respond to deep pain at the spinal level in the lower extremities only. REFLEXES: 2+ and bilaterally symmetrical at the biceps, triceps, brachioradialis, and knees. 0 at both ankles. The plantar responses were extensor bilaterally. COORDINATION, STANCE & GAIT: Could not be tested. ABNORMAL MOVEMENTS: None. Impression/Recommendations Diagnostic Impression 1. Mr. Ibrahima Ellington is a 67-year-old, right-handed, gentleman, who does have a past history of hypertension, diabetes mellitus, dyslipidemia, benign prostatic hypertrophy, neuropathy, gallstones, and pancreatitis, who was hospitalized on 01/05/2018 for urinary sepsis and a possible acute myocardial infarction. In the early hours of 01/06/2018, he was noted to be bradycardic following a bout of nausea and vomiting and then became unresponsive. A Code Blue was called and he had to be intubated, had chest compressions, had to be given epinephrine, and then there was a return of pulse and blood pressure. There was an 8-minute period, where a blood pressure and pulse could not be recorded. Since then, the patient has been comatose and had been exhibiting some abnormal movements, which were labeled seizures. 2. He continues to be comatose. There has been no significant change in his condition. He has stopped decerebrating. His myoclonic jerks have also stopped. He is off pressors for cardiac support. He is still on a ventilator for respiratory support. His fever has defervesced. 3. On neurological examination, at this time, he is comatose and only responds to deep pain with reflex withdrawal in both lower extremities. He does have minimal eye movements on oculocephalic maneuvers and subdued corneal reflexes bilaterally. He does not respond to pain in the upper extremities and and withdraws his lower extremities to deep pain. His deep tendon reflexes are physiological and he exhibits extensor plantar responses bilaterally. 4. His laboratory data on my initial evaluation revealed a WBC count elevated at 16,400 and anemia with a hemoglobin of 10.8. Sodium at 135, BUN elevated at 24 with a creatinine of 1.5, and glucose elevated at 275. Hemoglobin A1c at 12.3%. Lactic acidosis at 6.8. Elevated liver function tests. Elevated troponins. Low albumin at 2.2. High TSH at 4.29. His urinalysis reveals 1+ leukocyte esterase and 2-4 red blood cells and 2-4 white blood cells per high- power field. His arterial blood gas performed at 09:12 hours on 01/06/18 revealed a pH of 7.27, a pCO2 of 31.9, and a pO2 of 60.4. 5. The EEG revealed signs of a moderately severe encephalopathy and no reactivity to external stimuli. However, no inter-ictal or ictal discharges were seen. 6. The CT of the brain done on 01/08/18 reveals no acute intracranial pathology with perhaps some generalized cerebral edema - official results pending. 7. 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 8. His myoclonus has resolved, however he is still severely encephalopathic. 9. The prognosis for recovery of neurologic function is poor and there has been no improvement in function > 48 hours following the brain insult. Recommendations 1. Continue present management. 2. Continue Keppra 500 mg IV q.12 hours. 3. Continue to observe closely for a total of 72 hours following his CPA to help us prognosticate on his neurological recovery. Joslyn Corey M.D., M.S.P.H. JOSLYN COREY January 08, 2018 10:47
--- NOTE | 2018-01-08 11:58 | Cardiology Report ---
APPROVED REPORT EKG Measurement Heart [id number] Normal sinus rhythm Possible Anterior infarct, age undetermined Abnormal ECG
--- NOTE | 2018-01-08 12:00 | Cardiology Report ---
APPROVED REPORT EKG Measurement Heart [id number] Normal sinus rhythm Septal infarct, age undetermined Abnormal ECG
[2018-01-08] MEDS: NovoLOG Insulin Flexpen SUBQ SCH ×2 (12:05→18:16)
--- NOTE | 2018-01-08 13:53 | Nephrology Progress Note ---
Assessment/Plan Problem List: (1) CHF (congestive heart failure) (2) ROSA M (acute kidney injury) (3) Cardiac arrest (4) NSTEMI (non-ST elevated myocardial infarction) (5) CHF exacerbation Plan continue bumex drip, grave prognosis, coma no better Subjective ROS Limited/Unobtainable: Yes Objective Objective Last 24 Hour Vital Signs Date Time Temp Pulse Resp B/P (MAP) Pulse Ox O2 Delivery O2 Flow Rate FiO2 01/08/18 12:56 54 18 50 01/08/18 12:00 50 01/08/18 12:00 98.5 55 18 134/53 100 Mechanical Ventilator 50 98.5 01/08/18 11:00 55 18 135/48 100 Mechanical Ventilator 50 01/08/18 10:56 54 20 50 01/08/18 10:00 61 23 126/45 100 Mechanical Ventilator 50 01/08/18 09:00 52 17 118/40 100 Mechanical Ventilator 50 01/08/18 08:47 52 21 50 01/08/18 08:35 52 118/39 01/08/18 08:00 98.3 53 16 141/42 100 Mechanical Ventilator 50 98.3 01/08/18 08:00 50 01/08/18 07:00 52 16 118/39 100 Mechanical Ventilator 50 01/08/18 06:49 52 19 50 01/08/18 06:30 52 17 113/41 100 Mechanical Ventilator 50 01/08/18 06:00 53 20 116/38 100 Mechanical Ventilator 50 01/08/18 05:30 53 19 119/40 100 Mechanical Ventilator 50 01/08/18 05:05 53 19 50 18 05:00 52 19 118/38 100 Mechanical Ventilator 50 01/08/18 05:00 114/39 18 04:30 53 19 117/43 100 Mechanical Ventilator 50 01/08/18 04:00 98.8 53 19 113/41 100 Mechanical Ventilator 50 98.8 01/08/18 04:00 50 01/08/18 04:00 113/41 01/08/18 03:30 53 19 91/50 100 Mechanical Ventilator 50 01/08/18 03:09 54 //18 03:04 53 19 50 18 03:00 54 20 107/48 100 Mechanical Ventilator 50 01/08/18 03:00 107/48 5/6/18 02:30 54 19 108/45 100 Mechanical Ventilator 50 5/6/18 02:00 110/45 5/6/18 02:00 53 19 107/50 100 Mechanical Ventilator 50 5/6/18 01:30 54 19 108/40 100 Mechanical Ventilator 50 5/6/18 01:03 61 18 50 5/6/18 01:00 106/40 5/6/18 01:00 54 20 106/40 100 Mechanical Ventilator 50 5/6/18 00:00 50 5/6/18 00:00 104/45 5/6/18 00:00 99.3 54 21 110/43 100 Mechanical Ventilator 50 99.3 5/5/18 23:33 57 5/5/18 23:30 55 20 98/35 100 Mechanical Ventilator 50 5/5/18 23:29 55 20 50 5/5/18 23:00 102/49 5/5/18 23:00 55 20 102/49 100 Mechanical Ventilator 50 5/5/18 22:30 55 22 102/38 100 Mechanical Ventilator 50 5/5/18 22:00 98/43 5/5/18 22:00 55 21 101/42 100 Mechanical Ventilator 50 5/5/18 21:30 55 20 96/42 100 Mechanical Ventilator 50 5/5/18 21:25 58 26 50 5/5/18 21:00 56 21 100/44 100 Mechanical Ventilator 50 5/5/18 21:00 100/44 5/5/18 20:30 56 21 95/41 100 Mechanical Ventilator 50 5/5/18 20:00 50 5/5/18 20:00 98/44 5/5/18 20:00 97.5 57 23 98/44 100 Mechanical Ventilator 50 97.5 5/5/18 19:30 57 24 90/28 100 Mechanical Ventilator 50 5/5/18 19:18 57 5/5/18 19:00 105/42 5/5/18 19:00 58 26 105/42 100 Mechanical Ventilator 50 5/5/18 18:58 58 26 50 5/5/18 18:30 58 23 98/32 100 Mechanical Ventilator 50 5/5/18 18:00 61 27 100/38 100 Mechanical Ventilator 50 5/5/18 18:00 100/38 5/5/18 17:30 61 24 46/44 100 Mechanical Ventilator 50 5/5/18 17:18 99.7 01/07/18 17:00 63 24 88/43 99 Mechanical Ventilator 50 01/07/18 17:00 91/48 01/07/18 16:37 63 20 50 01/07/18 16:30 64 23 93/50 98 Mechanical Ventilator 50 01/07/18 16:00 50 01/07/18 16:00 65 01/07/18 16:00 99.5 64 21 102/52 99 Mechanical Ventilator 50 99.5 01/07/18 16:00 121/61 01/07/18 15:59 99.9 01/07/18 15:30 67 21 107/55 99 Mechanical Ventilator 50 01/07/18 15:02 102.5 01/07/18 15:00 73 25 142/63 98 Mechanical Ventilator 50 01/07/18 15:00 142/63 01/07/18 14:48 84 30 50 01/07/18 14:45 83 30 165/78 96 Mechanical Ventilator 50 01/07/18 14:30 85 30 145/84 96 Mechanical Ventilator 50 01/07/18 14:15 73 19 128/65 100 Mechanical Ventilator 50 01/07/18 14:00 118/61 01/07/18 14:00 63 19 118/61 100 Mechanical Ventilator 50 Intake and Output 01/07/18 01/08/18 19:00 07:00 Intake Total 608.125 ml 728.750 ml Output Total 1730 ml 785 ml Balance -1121.875 ml -56.250 ml IV Total 538.125 ml 588.750 ml Tube Feeding 90 ml Other 70 ml 50 ml Output Urine Total 1730 ml 785 ml Laboratory Tests 01/07/18 17:00: Lactic Acid Level 2.50H, Troponin I 4.924H 01/07/18 19:00: Urine Color Meghan, Urine Appearance Cloudy, Urine pH 5, Urine Specific [place] 1.015, Urine Protein 2+H, Urine Glucose (UA) Negative, Urine Ketones Negative, Urine Occult Blood 4+H, Urine Nitrite Negative, Urine Bilirubin Negative, Urine Ictotest Negative, Urine Urobilinogen Normal, Urine Leukocyte Esterase 1+H, Urine RBC 10-15H, Urine WBC 5-10H, Urine Squamous Epithelial Cells Few, Urine Bacteria ModerateH 01/08/18 04:00: Troponin I 4.012H, White Blood Count 14.8H, Red Blood Count 3.99L, Hemoglobin 11.4L, Hematocrit 34.2L, Mean Corpuscular Volume 86, Mean Corpuscular Hemoglobin 28.5, Mean Corpuscular Hemoglobin Concent 33.3, Red Cell Distribution Width 13.6, Platelet Count 190, Mean Platelet Volume 8.1, Neutrophils (%) (Auto) 83.6H, Lymphocytes (%) (Auto) 10.2L, Monocytes (%) (Auto ) 5.7, Eosinophils (%) (Auto) 0.2, Basophils (%) (Auto) 0.3, Sodium Level 134L, Potassium Level 3.8, Chloride Level 99, Carbon Dioxide Level 21, Anion Gap 14, Blood Urea Nitrogen 64H, Creatinine 3.9H, Estimat Glomerular Filtration Rate 15.5, Glucose Level 477#H, Calcium Level 7.8L, Magnesium Level 1.6L, Total Bilirubin 1.9H, Direct Bilirubin 1.1H, Aspartate Amino Transf (AST/SGOT) 213H, Alanine Aminotransferase (ALT/SGPT) 429H, Alkaline Phosphatase 174H, Total Protein 6.3L, Albumin 1.8L, Globulin 4.5, Albumin/Globulin Ratio 0.4L Height (Feet): 5 Height (Inches): 4.00 Weight (Pounds): 178 Neck: normal alignment Cardiovascular: normal rate Respiratory/Chest: rhonchi - bilaterally Abdomen: non tender Extremities: trace edema Neurologic: unresponsive KEILA KHAN January 08, 2018 13:53
[2018-01-08] MEDS: Lyrica 75mg cap ORAL SCH (18:18)
[2018-01-08] MEDS: Dyna-Hex 2% Top Sol 2oz TOPIC SCH (20:13)
[2018-01-08] MEDS: Atorvastatin 20mg tab ORAL SCH (20:13)
[2018-01-09] VITALS (32 sets, daily range): BP systolic 71–194; BP diastolic 45–82
[2018-01-09] MEDS: Nitroglycerin 2% oint pkt TOPIC SCH ×4 (01:44→17:58)
[2018-01-09] MEDS: Zosyn 2.25 gm in D5W 55ml IV SCH ×4 (02:00→19:43)
--- NOTE | 2018-01-09 02:45 | Progress Note ---
DATE: 01/07/2018 CARDIOLOGY PROGRESS NOTE SUBJECTIVE: The patient remains in the intensive care unit. Blood pressure is improving. Chest pressors are being tapered. The patient remains poorly responsive. OBJECTIVE: VITAL SIGNS: Blood pressure 98/32, pulse 58, respirations 23, afebrile, and T-max 102.5 degrees. GENERAL: Orally intubated. Mechanically ventilated. LUNGS: Bilateral rhonchi. CARDIAC: Regular rhythm and rate. Normal S1 and S2. ABDOMEN: Soft. EXTREMITIES: There is 1+ edema. LABORATORY AND DIAGNOSTIC DATA: Troponin 6.4. Magnesium 1.6. Lactic acid 3.3. BUN 45, creatinine 3.1 and potassium 4.5. IMPRESSION: 1. Acute myocardial infarction. 2. Sepsis with shock. 3. Status post cardiopulmonary arrest. 4. Postanoxic encephalopathy. 5. Acute renal failure. 6. Probable apical thrombus. PLAN: 1. Taper off pressors as able. 2. Continue ventilator support. 3. Diuresis and anti-failure therapy once blood pressure stabilizes. 4. Continue anti-platelet drugs and Lovenox. 5. Prognosis remains poor. Yosef England M.D. DR: TRESSA JOB#: [id number] CC:
--- NOTE | 2018-01-09 02:45 | Progress Note ---
DATE: 01/08/2018 CARDIOLOGY PROGRESS NOTE SUBJECTIVE: The patient's blood pressure is improving and up trending. He is off pressors. The patient remains on anticoagulation in view of apical thrombus. The patient remains on ventilator support. Orally intubated. OBJECTIVE: VITAL SIGNS: Blood pressure 116/38, pulse 53, and respiratory rate 20. NECK: Supple. LUNGS: With coarse breath sounds. CARDIAC: Regular rhythm and rate. Normal S1 and S2 with a 1/6 systolic apical murmur. ABDOMEN: Soft and nontender. No edema. NEUROLOGIC: Remains noncommunicative. IMPRESSION: 1. Acute myocardial infarction. 2. Cardiopulmonary arrest. 3. Sepsis with shock. 4. Respiratory failure. 5. Hypomagnesemia. 6. Acute renal failure. 7. Postanoxic encephalopathy. 8. Cardiomyopathy with acute systolic and diastolic congestive heart failure. PLAN: 1. Taper pressors. 2. Continue diuresis. 3. Full anticoagulation. 4. Antiplatelet therapy and statin drug. 5. Discontinue pressors when able. 6. Continue ventilator support. 7. Antimicrobials. Yosef England M.D. DR: TRESSA JOB#: [id number] CC:
[2018-01-09] MEDS: Bumetanide 10 MG in D5W 60 ML IVLG SCH ×2 (03:30→23:52)
[2018-01-09] MEDS: NovoLOG Insulin Flexpen SUBQ SCH ×5 (06:01→23:54)
[2018-01-09 06:17] LABS: HEMOGLOBIN 13.3 G/DL (14.2-18.0); RED BLOOD COUNT 4.73 M/UL (4.70-6.10); WHITE BLOOD COUNT 13.8 K/UL (4.8-10.8)
[2018-01-09 06:18] LABS: BASOPHILS % (AUTO) 0.8 % (0.0-2.0); EOSINOPHILS % (AUTO) 0.4 % (0.0-3.0); HEMATOCRIT 39.2 % (42.0-52.0); LYMPHOCYTES % (AUTO) 15.2 % (20.0-45.0); MEAN CORPUSCULAR VOLUME 83 FL (80-99); NEUTROPHILS % (AUTO) 74.6 % (45.0-75.0); PLATELET COUNT 194 K/UL (150-450); RED CELL DISTRIBUTION WIDTH 13.1 % (11.6-14.8)
[2018-01-09 06:44] LABS: ALANINE AMINOTRANSFERASE 384 U/L (12-78); ALBUMIN 1.8 G/DL (3.4-5.0); ALKALINE PHOSPHATASE 199 U/L (46-116); ANION GAP 12 mmol/L (5-15); ASPARTATE AMINO TRANSFERASE 190 U/L (15-37); BILIRUBIN,DIRECT 0.8 MG/DL (0.0-0.3); BILIRUBIN,TOTAL 1.5 MG/DL (0.2-1.0); BLOOD UREA NITROGEN 60 mg/dL (7-18); CALCIUM 7.8 MG/DL (8.5-10.1); CARBON DIOXIDE 25 MMOL/L (21-32); CHLORIDE 96 MMOL/L (98-107); CREATININE 3.7 MG/DL (0.55-1.30); SODIUM 133 MMOL/L (136-145)
--- NOTE | 2018-01-09 08:34 | Diagnostic Imaging Report ---
Indication: Altered level of consciousness Technique: Contiguous 5 mm thick transaxial imaging of the head obtained in a Siemens Sensation [address] scanner. Soft tissue and bone windows generated. Automatic Exposure Control was utilized. Total Dose length Product (DLP): [address] Dose Index Volume (CTDIvol): 70.38 mGy Comparison: none Findings: There is mild prominence of the ventricles, basal cisterns, and cerebral sulci consistent with atrophy. Mild, nonspecific, white matter hypoattenuation is noted throughout the brain consistent with chronic small vessel disease. There is no midline shift, edema, acute hemorrhage, mass effect, or abnormal extra-axial fluid collections. Bones and extra osseous soft tissues are unremarkable. Note: Difficult to appreciate de leon-white differentiation on this exam. This may be technical in nature. Suggest follow-up and repeat examination. Loss of de leon-white differentiation can be seen in cerebral edema. Impression: Apparent loss of de leon-white differentiation. Cerebral edema not excluded. This may be technical or artifactual in nature. Nevertheless, suggest repeat follow-up of the study or correlate with MRI. No acute intracranial bleed, mass effect or edema. Mild atrophy of the brain. Nonspecific white matter hypoattenuation probably due to chronic small vessel disease. The CT scanner at [facility] is accredited by the [place] [employer] and the scans are performed using dose optimization techniques as appropriate to a performed exam including Automatic Exposure control.
[2018-01-09] MEDS: Aspirin Baby 81mg ORAL SCH (08:52)
[2018-01-09] MEDS: levETIRAcetam 500mg/NS100ml 100 ML IVPB SCH ×2 (08:53→20:44)
[2018-01-09] MEDS: Dorzolamide 2% 10ml Btl BOTH EYES SCH ×3 (09:00→17:58)
[2018-01-09] MEDS: Enoxaparin Sodium 300mg/3ml vial SUBQ SCH (09:42)
--- NOTE | 2018-01-09 10:51 | Diagnostic Imaging Report ---
Indication: Dyspnea Comparison: 01/08/2018 A single view chest radiograph was obtained. Findings: Lung volumes are low. There is vascular congestion present. Endotracheal tube is well situated as is the nasogastric tube. IMPRESSION: Pulmonary edema
--- NOTE | 2018-01-09 13:00 | Consultation ---
DATE OF CONSULTATION: 01/06/2018 NEPHROLOGY CONSULTATION CONSULTING PHYSICIAN: Jose J Gonzalez M.D. REFERRING PHYSICIAN: Shreyas Priest M.D. REASON FOR CONSULTATION: Acute kidney injury. HISTORY OF PRESENT ILLNESS: The patient is a 67-year-old man who is now in ICU post cardiopulmonary arrest. He presented with shortness of breath and chest x-ray is showing bilateral infiltrates suggestive of pulmonary edema. The patient has had fever on presentation and elevated troponin. He had recent cystoscopy about 3 days prior to admission. Apparently, he had an arrhythmic cardiopulmonary arrest and is now on a ventilator, comatose. ALLERGIES: None known prior to admission. MEDICATIONS: Include insulin, amlodipine, aspirin, atenolol, atorvastatin, Keflex, vitamins, eyedrops for glaucoma, Isordil, lisinopril, metformin, oxybutynin, Pyridium, Lyrica, Januvia, and Flomax. SYSTEM REVIEW: Obtained from the family. Pertinent positives: 1. History of pancreatitis about 9 years ago. 2. History of adult-onset diabetes. 3. History of hypertension. 4. History of BPH. PAST SURGICAL HISTORY: He had a cystoscopy. PHYSICAL EXAMINATION: GENERAL: The patient is seen in the ICU. He is on a ventilator. Eyes are closed. He is comatose. VITAL SIGNS: Pulse 76, respirations 32, blood pressure 135/85. HEAD, EYES, EARS, NOSE, THROAT: Eyes are closed. Pupils are nonreactive. He is orally intubated. NECK: No adenopathy. LUNGS: He is tachypneic. Bilateral rhonchi. HEART: Regular rhythm and tachycardic. No murmur heard. ABDOMEN: Mildly distended. Liver and spleen not palpable. EXTREMITIES: Show trace edema. NEUROLOGIC: The patient is comatose. No response to painful stimuli. LABORATORY DATA: Pertinent laboratories, urine dipstick shows 2+ protein, 4+ glucose, 2 to 4 rbc's, and 2 to 4 white cells per high-power field, collected 01/05/2018. Chemistries as follows. Sodium 135 CO2 21, BUN 24, creatinine 1.10 calcium 8.4. 128 and ALT of 95. Troponin 3.616 and 3.936. Albumin is 2.2. TSH 4.292. IMPRESSION: 1. Status post cardiopulmonary arrest. 2. Pulmonary edema. 3. Acute kidney injury with oliguria. 4. Proteinuria. 5. Diabetes. 6. Coma, likely anoxic encephalopathy. 7. History of recent cystoscopy with questionable urinary tract infection. 8. Fever on presentation. 9. Abdominal distention. PLAN: At this time, the patient's condition is critical. This was discussed with the family. The patient will be getting urinary electrolytes, diuresis, cardiopulmonary care, however, in view of his brain injury, he is at very high risk of sudden and failure to improve. Thank you so much. Jose J Gonzalez M.D. DR: Essie JOB#: [id number] CC:
--- NOTE | 2018-01-09 13:09 | Pulmonology Progress Note ---
Assessment/Plan Assessment/Plan no more seizures or posturing intubated on vent T 102 remains unresponsive disc w at bedside, advised of guarded prognosis long conversation thru economist research assistant regarding his wishes (would not want vegetative state) and option for terminal care. she will discuss with family 1. BC e coli, [employer] 2. Acute myocardial infarction 3. Diabetes, A1c>12 4. Hypertension, now hypotension 5. Hyperlipidemia. 6. s/p arrest, anoxic/ischemia encephalopathy 7. resp failure 8. oliguric ROSA M 9. hepatic disorder Subjective ROS Limited/Unobtainable: Yes Allergies: Coded Allergies: No Known Allergies (Verified , 09/15/17) Objective Last 24 Hour Vital Signs Date Time Temp Pulse Resp B/P (MAP) Pulse Ox O2 Delivery O2 Flow Rate FiO2 01/09/18 12:00 30 01/09/18 12:00 111/58 01/09/18 12:00 98.5 53 15 111/58 99 Mechanical Ventilator 40 98.5 01/09/18 11:22 52 16 40 01/09/18 11:00 52 18 105/54 100 Mechanical Ventilator 30 01/09/18 10:00 55 21 109/55 100 Mechanical Ventilator 30 01/09/18 09:15 52 15 40 01/09/18 09:00 59 22 109/61 100 Mechanical Ventilator 30 01/09/18 08:52 60 127/61 01/09/18 08:00 40 01/09/18 08:00 98.7 57 17 121/60 100 Mechanical Ventilator 40 98.7 01/09/18 08:00 62 01/09/18 07:00 99.0 57 18 125/68 100 Mechanical Ventilator 40 99.0 01/09/18 06:40 54 16 40 01/09/18 06:00 99.0 54 18 148/67 100 Mechanical Ventilator 40 99.0 01/09/18 05:59 144/66 01/09/18 05:24 50 17 40 01/09/18 05:00 99.2 55 18 144/66 100 Mechanical Ventilator 40 99.2 01/09/18 04:00 55 01/09/18 04:00 40 01/09/18 04:00 99.6 62 23 161/61 100 Mechanical Ventilator 40 99.6 01/09/18 03:30 56 19 40 01/09/18 03:22 163/54 01/09/18 03:00 100.0 62 21 157/68 100 Mechanical Ventilator 40 100.0 01/09/18 02:00 100.6 62 20 163/54 100 Mechanical Ventilator 40 100.6 01/09/18 01:44 194/69 01/09/18 01:30 64 20 40 01/09/18 01:00 101.4 65 20 194/69 100 Mechanical Ventilator 40 101.4 01/09/18 00:00 102.3 68 22 178/68 100 Mechanical Ventilator 40 102.3 01/08/18 23:58 68 01/08/18 23:30 68 21 40 01/08/18 23:00 68 22 155/51 100 Mechanical Ventilator 40 01/08/18 22:00 67 23 161/54 100 Mechanical Ventilator 40 01/08/18 21:30 62 24 40 01/08/18 21:00 66 19 155/64 100 Mechanical Ventilator 40 01/08/18 20:00 65 01/08/18 20:00 40 01/08/18 20:00 98.5 63 22 153/48 100 Mechanical Ventilator 40 98.5 01/08/18 19:30 65 26 40 01/08/18 19:17 98.5 18 19:00 59 17 146/60 100 Mechanical Ventilator 40 01/08/18 18:18 98.5 01/08/18 18:00 57 17 158/51 100 Mechanical Ventilator 40 01/08/18 17:00 56 21 156/57 100 Mechanical Ventilator 40 01/08/18 16:31 56 21 50 01/08/18 16:00 55 01/08/18 16:00 55 14 136/42 100 Mechanical Ventilator 40 01/08/18 16:00 40 01/08/18 15:15 55 16 100 18 15:00 56 19 138/51 100 Mechanical Ventilator 40 01/08/18 14:42 53 22 50 18 14:00 54 14 131/44 100 Mechanical Ventilator 50 Intake and Output 01/08/18 01/09/18 19:00 07:00 Intake Total 500 ml 795 ml Output Total 1805 ml 2060 ml Balance -1305 ml -1265 ml Free Water 100 ml IV Total 360 ml 515 ml Tube Feeding 140 ml 180 ml Output Urine Total 1805 ml 2060 ml General Appearance: no acute distress Respiratory/Chest: rhonchi Cardiovascular: normal rate Abdomen: soft, non tender Microbiology Date/Time Source Procedure Growth Status 01/07/18 19:00 Sputum Induced Gram Stain - Final Resulted 01/07/18 19:00 Sputum Induced Sputum Culture - Preliminary Resulted 01/07/18 19:00 Indwelling Cath Urine Culture - Preliminary NO GROWTH AFTER 24 HOURS Resulted Laboratory Tests 01/09/18 04:00: White Blood Count 13.8H, Red Blood Count 4.73, Hemoglobin 13.3L, Hematocrit 39.2L, Mean Corpuscular Volume 83, Mean Corpuscular Hemoglobin 28.2, Mean Corpuscular Hemoglobin Concent 34.0, Red Cell Distribution Width 13.1, Platelet Count 194, Mean Platelet Volume 8.3, Neutrophils (%) (Auto) 74.6, Lymphocytes (% ) (Auto) 15.2L, Monocytes (%) (Auto) 9.0, Eosinophils (%) (Auto) 0.4, Basophils (%) (Auto) 0.8, Arterial Blood pH 7.500H, Arterial Blood Partial Pressure CO2 33.4L, Arterial Blood Partial Pressure O2 147.4H, Arterial Blood HCO3 25.5, Arterial Blood Oxygen Saturation 98.9H, Arterial Blood Base Excess 2.7, Chavo Test Positive, Sodium Level 133L, Potassium Level 3.0L, Chloride Level 96L, Carbon Dioxide Level 25, Anion Gap 12, Blood Urea Nitrogen 60H, Creatinine 3.7H , Estimat Glomerular Filtration Rate 16.5, Glucose Level 359#H, Calcium Level 7.8L, Magnesium Level 1.7L, Total Bilirubin 1.5H, Direct Bilirubin 0.8H, Aspartate Amino Transf (AST/SGOT) 190H, Alanine Aminotransferase (ALT/SGPT) 384H , Alkaline Phosphatase 199H, Pro-B-Type Natriuretic Peptide 49984K, Total Protein 7.0, Albumin 1.8L, Lipase 343 Current Medications Medications (Trade) Dose Ordered Sig/Tyrell Route PRN Reason Start Time Stop Time Status Last Admin Dose Admin Acetaminophen (Tylenol) 650 mg Q6H PRN GT Mild Pain/Temp > 100.5 01/06/18 11:15 02/05/18 11:14 01/07/18 15:02 Aspirin (ASA) 81 mg DAILY ORAL 01/06/18 09:00 02/05/18 08:59 01/09/18 08:52 Atenolol (Tenormin) 25 mg DAILY ORAL 01/10/18 09:00 02/09/18 08:59 Atorvastatin Calcium (Lipitor) 20 mg BEDTIME ORAL 01/06/18 21:00 02/05/18 20:59 01/08/18 20:13 Bumetanide 10 mg/ Dextrose 100 ml @ 5 mls/hr Q20H IVLG 01/06/18 15:30 02/05/18 15:29 01/09/18 03:30 Calcium Carbonate (Tums) 500 mg BID PRN ORAL HEARTBURN 01/06/18 09:00 02/04/18 19:03 Chlorhexidine Gluconate (Debi-Hex 2%) 1 applic DAILY@2000 TOPIC 01/06/18 20:00 02/05/18 19:59 01/08/18 20:13 Dextrose (Dextrose 50%) 25 ml STAT PRN IV Hypoglycemia 01/08/18 07:00 02/07/18 06:59 Dextrose (Dextrose 50%) 50 ml STAT PRN IV Hypoglycemia 01/08/18 07:00 02/07/18 06:59 Dorzolamide HCl (Trusopt) 1 drop TID BOTH EYES 01/06/18 09:00 02/04/18 17:59 01/09/18 12:34 Enoxaparin Sodium (Lovenox) 70 mg DAILY SUBQ 01/08/18 09:00 02/07/18 08:59 01/09/18 09:42 Famotidine (Pepcid) 20 mg BEDTIME ORAL 01/06/18 21:00 02/04/18 20:59 01/08/18 20:13 Insulin Aspart (NovoLOG) EVERY 6 HOURS SUBQ 01/08/18 12:00 02/07/18 11:59 01/09/18 12:32 Levetiracetam 100 ml @ 400 mls/hr Q12HR IVPB 01/06/18 21:00 02/05/18 20:59 01/09/18 08:53 Linezolid 300 ml @ 300 mls/hr Q12H IVPB 01/07/18 15:30 01/14/18 15:29 01/09/18 03:22 Nitroglycerin (Nitro-Bid) 1 inch TID@0600,1200,1800 TOPIC 01/09/18 01:15 02/08/18 01:14 01/09/18 12:00 Ondansetron HCl (Zofran) 4 mg Q6H PRN IVP Nausea & Vomiting 01/06/18 07:15 02/04/18 19:07 Piperacillin Sod/ Tazobactam Sod 2.25 gm/Dextrose 55 ml @ 110 mls/hr Q6H IV 01/07/18 20:00 01/14/18 19:59 01/09/18 08:54 Pregabalin (Lyrica) 150 mg DAILY@1700 ORAL 01/06/18 17:00 02/05/18 16:59 01/08/18 18:18 Shreyas Priest MD January 09, 2018 13:09
--- NOTE | 2018-01-09 15:23 | Infectious Diseases Prog Note ---
Assessment/Plan Assessment/Plan ASSESSMENT AND PLAN: 1. sepsis, fevers, leukocytosis, e.coli uti bacteremia, front line leader bc likely contaminant, ? uti, alfonzo, respiratory failure, s/p code, ? aspiration pna/HCAP vs edema, poorly responsive - zosyn and zyvox - check sc, labs, surveillance blood cultures, chest x-ray - watch clinically, icu supportive care - poor prognosis - d/w RN and family at the bedside 2. Status post cystoscopy. 3. Diabetes. 4. Hypertension. 5. Hyperlipidemia. 6. Benign prostatic hypertrophy. 7. Neuropathy. 8. History of gallstone pancreatitis. 9. Allergies are negative. 10. Family history is noncontributory. 11. Social history is negative. 12. MAR was noted. 13. Case was discussed with RN. 14. Case was discussed with Dr. Priest. 15. Case was discussed with the patient and family member. 16. Notes and records were reviewed. 17. MAR was noted. 18. Orders were entered. Subjective Constitutional: Reports: fever, fatigue, other - fevers yesterday but better today HEENT: Reports: congestion Respiratory: Reports: shortness of breath Cardiovascular: Reports: other - no pressors Gastrointestinal/Abdominal: Denies: nausea, vomiting, diarrhea Genitourinary: Reports: other - + johansen Neurologic: Reports: other - non-responsive Psychiatric: Reports: other - non-responsive Skin: Denies: rash Hematologic: Denies: bleeding Musculoskeletal: Reports: other - non-responsive Allergies: Coded Allergies: No Known Allergies (Verified , 09/15/17) Objective Vital Signs Last 24 Hour Vital Signs Date Time Temp Pulse Resp B/P (MAP) Pulse Ox O2 Delivery O2 Flow Rate FiO2 01/09/18 15:00 57 15 137/63 100 Mechanical Ventilator 30 01/09/18 14:00 55 16 112/56 100 Mechanical Ventilator 30 01/09/18 13:00 54 18 121/59 100 Mechanical Ventilator 30 01/09/18 12:45 55 15 40 01/09/18 12:00 30 01/09/18 12:00 111/58 01/09/18 12:00 98.5 53 15 111/58 99 Mechanical Ventilator 40 98.5 01/09/18 12:00 52 01/09/18 11:22 52 16 40 01/09/18 11:00 52 18 105/54 100 Mechanical Ventilator 30 01/09/18 10:00 55 21 109/55 100 Mechanical Ventilator 30 01/09/18 09:15 52 15 40 01/09/18 09:00 59 22 109/61 100 Mechanical Ventilator 30 01/09/18 08:52 60 127/61 01/09/18 08:00 40 01/09/18 08:00 98.7 57 17 121/60 100 Mechanical Ventilator 40 98.7 01/09/18 08:00 62 01/09/18 07:00 99.0 57 18 125/68 100 Mechanical Ventilator 40 99.0 01/09/18 06:40 54 16 40 01/09/18 06:00 99.0 54 18 148/67 100 Mechanical Ventilator 40 99.0 01/09/18 05:59 144/66 01/09/18 05:24 50 17 40 01/09/18 05:00 99.2 55 18 144/66 100 Mechanical Ventilator 40 99.2 01/09/18 04:00 55 01/09/18 04:00 40 01/09/18 04:00 99.6 62 23 161/61 100 Mechanical Ventilator 40 99.6 01/09/18 03:30 56 19 40 01/09/18 03:22 163/54 01/09/18 03:00 100.0 62 21 157/68 100 Mechanical Ventilator 40 100.0 01/09/18 02:00 100.6 62 20 163/54 100 Mechanical Ventilator 40 100.6 01/09/18 01:44 194/69 01/09/18 01:30 64 20 40 01/09/18 01:00 101.4 65 20 194/69 100 Mechanical Ventilator 40 101.4 01/09/18 00:00 102.3 68 22 178/68 100 Mechanical Ventilator 40 102.3 01/08/18 23:58 68 01/08/18 23:30 68 21 40 01/08/18 23:00 68 22 155/51 100 Mechanical Ventilator 40 01/08/18 22:00 67 23 161/54 100 Mechanical Ventilator 40 01/08/18 21:30 62 24 40 01/08/18 21:00 66 19 155/64 100 Mechanical Ventilator 40 01/08/18 20:00 65 01/08/18 20:00 40 01/08/18 20:00 98.5 63 22 153/48 100 Mechanical Ventilator 40 98.5 01/08/18 19:30 65 26 40 01/08/18 19:17 98.5 01/08/18 19:00 59 17 146/60 100 Mechanical Ventilator 40 01/08/18 18:18 98.5 18 18:00 57 17 158/51 100 Mechanical Ventilator 40 01/08/18 17:00 56 21 156/57 100 Mechanical Ventilator 40 01/08/18 16:31 56 21 50 01/08/18 16:00 55 01/08/18 16:00 55 14 136/42 100 Mechanical Ventilator 40 01/08/18 16:00 40 Height (Feet): 5 Height (Inches): 4.00 Weight (Pounds): 174 General Appearance: other - on vent, poorly responsive HEENT: normocephalic, atraumatic, anicteric Respiratory/Chest: crackles/rales, rhonchi - bilaterally Cardiovascular: normal rate, regular rhythm, no gallop/murmur, no JVD Abdomen: normal bowel sounds, soft, non tender, no organomegaly, non distended Genitourinary: other - + johansen - urine slt cloudy Extremities: no cyanosis Skin: no rash Neurologic/Psychiatric: liability claims examiner II-XII grossly normal, alert, responsive Lymphatic: no neck adenopathy Musculoskeletal: no effusion Objective Chest x-ray - 01/06 Findings: Heart size and mediastinal contours are stable. There is interval endotracheal intubation. Tip of the ET tube below level the clavicles, approximately 4.4 cm above the level of the patsy. Enteric tube tip in the proximal stomach. Side port at the GE junction. There are perihilar interstitial opacities, increased from the prior exam possibly related to pulmonary edema. No definite pleural effusion. No pneumothorax. Impression: Satisfactory endotracheal intubation. Enteric tube tip in the stomach. Interval worsening of interstitial and probably perihilar airspace opacities thought to related to pulmonary edema. Superimposed pneumonia not entirely excluded. Clinical correlation and follow-up exam recommended. This corresponds with the statrad preliminary report. Chest x-ray - pulmonary edema Microbiology Date/Time Source Procedure Growth Status 01/05/18 14:30 Blood Blood Culture - Final Escherichia Coli Staphylococcus Sp Coag Neg Complete 01/07/18 19:00 Sputum Induced Gram Stain - Final Resulted 01/07/18 19:00 Sputum Induced Sputum Culture - Preliminary Resulted 01/07/18 19:00 Indwelling Cath Urine Culture - Preliminary NO GROWTH AFTER 24 HOURS Resulted Microbiology Date/Time Source Procedure Growth Status 01/07/18 19:00 Sputum Induced Gram Stain - Final Resulted 01/07/18 19:00 Sputum Induced Sputum Culture - Preliminary Resulted 01/07/18 19:00 Indwelling Cath Urine Culture - Preliminary NO GROWTH AFTER 24 HOURS Resulted Laboratory Tests Test 01/09/18 04:00 White Blood Count 13.8 K/UL (4.8-10.8) H Red Blood Count 4.73 M/UL (4.70-6.10) Hemoglobin 13.3 G/DL (14.2-18.0) L Hematocrit 39.2 % (42.0-52.0) L Mean Corpuscular Volume 83 FL (80-99) Mean Corpuscular Hemoglobin 28.2 PG (27.0-31.0) Mean Corpuscular Hemoglobin Concent 34.0 G/DL (32.0-36.0) Red Cell Distribution Width 13.1 % (11.6-14.8) Platelet Count 194 K/UL (150-450) Mean Platelet Volume 8.3 FL (6.5-10.1) Neutrophils (%) (Auto) 74.6 % (45.0-75.0) Lymphocytes (%) (Auto) 15.2 % (20.0-45.0) L Monocytes (%) (Auto) 9.0 % (1.0-10.0) Eosinophils (%) (Auto) 0.4 % (0.0-3.0) Basophils (%) (Auto) 0.8 % (0.0-2.0) Arterial Blood pH 7.500 (7.350-7.450) Arterial Blood Partial Pressure CO2 33.4 mmHg (35.0-45.0) L Arterial Blood Partial Pressure O2 147.4 mmHg (75.0-100.0) H Arterial Blood HCO3 25.5 mmol/L (22.0-26.0) Arterial Blood Oxygen Saturation 98.9 % (92.0-98.0) H Arterial Blood Base Excess 2.7 Chavo Test Positive Sodium Level 133 MMOL/L (136-145) L Potassium Level 3.0 MMOL/L (3.5-5.1) L Chloride Level 96 MMOL/L (98-107) L Carbon Dioxide Level 25 MMOL/L (21-32) Anion Gap 12 mmol/L (5-15) Blood Urea Nitrogen 60 mg/dL (7-18) H Creatinine 3.7 MG/DL (0.55-1.30) H Estimat Glomerular Filtration Rate 16.5 mL/min (>60) Glucose Level 359 MG/DL (74-106) #H Calcium Level 7.8 MG/DL (8.5-10.1) L Magnesium Level 1.7 MG/DL (1.8-2.4) L Total Bilirubin 1.5 MG/DL (0.2-1.0) H Direct Bilirubin 0.8 MG/DL (0.0-0.3) H Aspartate Amino Transf (AST/SGOT) 190 U/L (15-37) H Alanine Aminotransferase (ALT/SGPT) 384 U/L (12-78) H Alkaline Phosphatase 199 U/L (46-116) H Pro-B-Type Natriuretic Peptide 79412 pg/mL (0-125) H Total Protein 7.0 G/DL (6.4-8.2) Albumin 1.8 G/DL (3.4-5.0) L Lipase 343 U/L (73-393) Current Medications Medications (Trade) Dose Ordered Sig/Tyrell Route PRN Reason Start Time Stop Time Status Last Admin Dose Admin Acetaminophen (Tylenol) 650 mg Q6H PRN GT Mild Pain/Temp > 100.5 01/06/18 11:15 02/05/18 11:14 01/07/18 15:02 Aspirin (ASA) 81 mg DAILY ORAL 01/06/18 09:00 02/05/18 08:59 01/09/18 08:52 Atenolol (Tenormin) 25 mg DAILY ORAL 01/10/18 09:00 02/09/18 08:59 Atorvastatin Calcium (Lipitor) 20 mg BEDTIME ORAL 01/06/18 21:00 02/05/18 20:59 01/08/18 20:13 Bumetanide 10 mg/ Dextrose 100 ml @ 5 mls/hr Q20H IVLG 01/06/18 15:30 02/05/18 15:29 01/09/18 03:30 Calcium Carbonate (Tums) 500 mg BID PRN ORAL HEARTBURN 01/06/18 09:00 02/04/18 19:03 Chlorhexidine Gluconate (Debi-Hex 2%) 1 applic DAILY@2000 TOPIC 01/06/18 20:00 02/05/18 19:59 01/08/18 20:13 Dextrose (Dextrose 50%) 25 ml STAT PRN IV Hypoglycemia 01/08/18 07:00 02/07/18 06:59 Dextrose (Dextrose 50%) 50 ml STAT PRN IV Hypoglycemia 01/08/18 07:00 02/07/18 06:59 Dorzolamide HCl (Trusopt) 1 drop TID BOTH EYES 01/06/18 09:00 02/04/18 17:59 01/09/18 12:34 Enoxaparin Sodium (Lovenox) 70 mg DAILY SUBQ 01/08/18 09:00 02/07/18 08:59 01/09/18 09:42 Famotidine (Pepcid) 20 mg BEDTIME ORAL 01/06/18 21:00 02/04/18 20:59 01/08/18 20:13 Insulin Aspart (NovoLOG) EVERY 6 HOURS SUBQ 01/08/18 12:00 02/07/18 11:59 01/09/18 12:32 Levetiracetam 100 ml @ 400 mls/hr Q12HR IVPB 01/06/18 21:00 02/05/18 20:59 01/09/18 08:53 Linezolid 300 ml @ 300 mls/hr Q12H IVPB 01/07/18 15:30 01/14/18 15:29 01/09/18 14:50 Nitroglycerin (Nitro-Bid) 1 inch TID@0600,1200,1800 TOPIC 01/09/18 01:15 02/08/18 01:14 01/09/18 12:00 Ondansetron HCl (Zofran) 4 mg Q6H PRN IVP Nausea & Vomiting 01/06/18 07:15 02/04/18 19:07 Piperacillin Sod/ Tazobactam Sod 2.25 gm/Dextrose 55 ml @ 110 mls/hr Q6H IV 01/07/18 20:00 01/14/18 19:59 01/09/18 14:50 Pregabalin (Lyrica) 150 mg DAILY@1700 ORAL 01/06/18 17:00 02/05/18 16:59 01/08/18 18:18 TRES AL January 09, 2018 15:23
--- NOTE | 2018-01-09 16:07 | Neurology Progress Note ---
Interim History Interim History Interim History Mr. Salas Ellington continues to be comatose. There has been no change in his condition. He has stopped decerebrating. His myoclonic jerks have also stopped. He however is exhibiting some chewing movements. He has been off pressors. He is still on a ventilator for respiratory support. His is afebrile. Review of Systems Neuro Review of Systems Unable to obtain. Objective Physical Exam Last Vital Signs Date Time Temp Pulse Resp B/P (MAP) Pulse Ox O2 Delivery O2 Flow Rate FiO2 01/09/18 15:00 57 15 137/63 100 Mechanical Ventilator 30 01/09/18 12:00 98.5 98.5 01/05/18 18:15 2.0 Laboratory Tests Test 01/09/18 04:00 White Blood Count 13.8 K/UL (4.8-10.8) H Red Blood Count 4.73 M/UL (4.70-6.10) Hemoglobin 13.3 G/DL (14.2-18.0) L Hematocrit 39.2 % (42.0-52.0) L Mean Corpuscular Volume 83 FL (80-99) Mean Corpuscular Hemoglobin 28.2 PG (27.0-31.0) Mean Corpuscular Hemoglobin Concent 34.0 G/DL (32.0-36.0) Red Cell Distribution Width 13.1 % (11.6-14.8) Platelet Count 194 K/UL (150-450) Mean Platelet Volume 8.3 FL (6.5-10.1) Neutrophils (%) (Auto) 74.6 % (45.0-75.0) Lymphocytes (%) (Auto) 15.2 % (20.0-45.0) L Monocytes (%) (Auto) 9.0 % (1.0-10.0) Eosinophils (%) (Auto) 0.4 % (0.0-3.0) Basophils (%) (Auto) 0.8 % (0.0-2.0) Arterial Blood pH 7.500 (7.350-7.450) Arterial Blood Partial Pressure CO2 33.4 mmHg (35.0-45.0) L Arterial Blood Partial Pressure O2 147.4 mmHg (75.0-100.0) H Arterial Blood HCO3 25.5 mmol/L (22.0-26.0) Arterial Blood Oxygen Saturation 98.9 % (92.0-98.0) H Arterial Blood Base Excess 2.7 Chavo Test Positive Sodium Level 133 MMOL/L (136-145) L Potassium Level 3.0 MMOL/L (3.5-5.1) L Chloride Level 96 MMOL/L (98-107) L Carbon Dioxide Level 25 MMOL/L (21-32) Anion Gap 12 mmol/L (5-15) Blood Urea Nitrogen 60 mg/dL (7-18) H Creatinine 3.7 MG/DL (0.55-1.30) H Estimat Glomerular Filtration Rate 16.5 mL/min (>60) Glucose Level 359 MG/DL (74-106) #H Calcium Level 7.8 MG/DL (8.5-10.1) L Magnesium Level 1.7 MG/DL (1.8-2.4) L Total Bilirubin 1.5 MG/DL (0.2-1.0) H Direct Bilirubin 0.8 MG/DL (0.0-0.3) H Aspartate Amino Transf (AST/SGOT) 190 U/L (15-37) H Alanine Aminotransferase (ALT/SGPT) 384 U/L (12-78) H Alkaline Phosphatase 199 U/L (46-116) H Pro-B-Type Natriuretic Peptide 81443 pg/mL (0-125) H Total Protein 7.0 G/DL (6.4-8.2) Albumin 1.8 G/DL (3.4-5.0) L Lipase 343 U/L (73-393) Neurologic Exam Objective PHYSICAL EXAMINATION: GENERAL: He is a well-developed, relatively well-nourished, gentleman , lying in an ICU bed, connected to a ventilator via an oral tracheal tube. HEAD: Normocephalic and atraumatic. EENT: Examination benign. NECK: No neck rigidity was observed. NEUROLOGIC EXAMINATION: MENTAL STATUS EXAMINATION: He was comatose and did not respond even to deep painful stimuli. Further mental status testing was impossible. He did, however, exhibit reflex withdrawal of both lower extremities on deep pain. SPEECH: Could not be tested. LANGUAGE: Could not be tested. CRANIAL NERVE EXAMINATION: II: He did not blink to threat. III, IV & : The external ocular movements were present, but significantly diminished on oculocephalic maneuvers. The pupils were 3 mm in diameter and nonreactive. V & VII: The corneal reflexes were present bilaterally. VIII: He did not respond to sounds and had no nystagmus. IX & X: The gag reflex was absent on manipulating the endotracheal tube. XI: The sternocleidomastoids and trapezii did not function. XII: Could not be tested. MOTOR SYSTEM: The tone was normal in all four extremities. Examination of muscle mass revealed no focal wasting. Examination of power could not be performed because even on applying deep painful stimuli, he only withdrew in his lower extremities reflexly and no movements were seen in the upper extremities. SENSORY EXAMINATION: He did respond to deep pain at the spinal level in the lower extremities only. REFLEXES: 2+ and bilaterally symmetrical at the biceps, triceps, brachioradialis, and knees. 0 at both ankles. The plantar responses were extensor bilaterally. COORDINATION, STANCE & GAIT: Could not be tested. ABNORMAL MOVEMENTS: None. Impression/Recommendations Diagnostic Impression 1. Mr. Ibrahima Ellington is a 67-year-old, right-handed, gentleman, who does have a past history of hypertension, diabetes mellitus, dyslipidemia, benign prostatic hypertrophy, neuropathy, gallstones, and pancreatitis, who was hospitalized on 01/05/2018 for urinary sepsis and a possible acute myocardial infarction. In the early hours of 01/06/2018, he was noted to be bradycardic following a bout of nausea and vomiting and then became unresponsive. A Code Blue was called and he had to be intubated, had chest compressions, had to be given epinephrine, and then there was a return of pulse and blood pressure. There was an 8-minute period, where a blood pressure and pulse could not be recorded. Since then, the patient has been comatose and had been exhibiting some abnormal movements, which were labeled seizures. 2. He continues to be comatose. There has been no significant change in his condition. He has stopped decerebrating. His myoclonic jerks have also stopped. He is exhibiting some chewing movements today. He is off pressors for cardiac support. He is still on a ventilator for respiratory support. He is afebrile. 3. On neurological examination, at this time, he is comatose and only responds to deep pain with reflex withdrawal in both lower extremities. He does have minimal eye movements on oculocephalic maneuvers and subdued corneal reflexes bilaterally. He does not respond to pain in the upper extremities and withdraws his lower extremities to deep pain. His deep tendon reflexes are physiological and he exhibits extensor plantar responses bilaterally. 4. His laboratory data on my initial evaluation revealed a WBC count elevated at 16,400 and anemia with a hemoglobin of 10.8. Sodium at 135, BUN elevated at 24 with a creatinine of 1.5, and glucose elevated at 275. Hemoglobin A1c at 12.3%. Lactic acidosis at 6.8. Elevated liver function tests. Elevated troponins. Low albumin at 2.2. High TSH at 4.29. His urinalysis reveals 1+ leukocyte esterase and 2-4 red blood cells and 2-4 white blood cells per high- power field. His arterial blood gas performed at 09:12 hours on 01/06/18 revealed a pH of 7.27, a pCO2 of 31.9, and a pO2 of 60.4. 5. The EEG revealed signs of a moderately severe encephalopathy and no reactivity to external stimuli. However, no inter-ictal or ictal discharges were seen. 6. The CT of the brain done on 01/08/18 reveals no acute intracranial pathology with perhaps some generalized cerebral edema - official results pending. 7. 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 8. His myoclonus has resolved, however he is still severely encephalopathic. 9. The prognosis for recovery of neurologic function is poor and there has been no improvement in function > 72 hours following the brain insult. Recommendations 1. Continue present management. 2. Continue Keppra 500 mg IV q.12 hours. 3. Re-assess goals of care as he had not regained consciousness > 72 hours post his cardiopulmonary event, and his prognosis for recovery of neurologic function is poor. Joslyn Corey M.D., M.S.P.H. JOSLYN COREY January 09, 2018 16:07
[2018-01-09] MEDS: Lyrica 75mg cap ORAL SCH (17:59)
--- NOTE | 2018-01-09 19:24 | Nephrology Progress Note ---
Assessment/Plan Problem List: (1) CHF (congestive heart failure) (2) ROSA M (acute kidney injury) (3) Cardiac arrest (4) NSTEMI (non-ST elevated myocardial infarction) (5) CHF exacerbation Plan continue bumex drip, grave prognosis, coma no better, I/O -2415 low K kcl order Subjective ROS Limited/Unobtainable: Yes Objective Objective Last 24 Hour Vital Signs Date Time Temp Pulse Resp B/P (MAP) Pulse Ox O2 Delivery O2 Flow Rate FiO2 01/09/18 18:00 67 18 140/76 99 Mechanical Ventilator 30 01/09/18 17:59 98.8 01/09/18 17:58 153/74 01/09/18 17:29 69 24 40 01/09/18 17:00 66 19 170/82 99 Mechanical Ventilator 30 01/09/18 16:00 30 01/09/18 16:00 98.5 61 19 172/74 100 Mechanical Ventilator 40 98.5 01/09/18 16:00 60 01/09/18 15:00 57 15 137/63 100 Mechanical Ventilator 30 01/09/18 14:45 59 21 40 01/09/18 14:00 55 16 112/56 100 Mechanical Ventilator 30 01/09/18 13:00 54 18 121/59 100 Mechanical Ventilator 30 01/09/18 12:45 55 15 40 01/09/18 12:00 30 01/09/18 12:00 111/58 01/09/18 12:00 98.5 53 15 111/58 99 Mechanical Ventilator 40 98.5 01/09/18 12:00 52 01/09/18 11:22 52 16 40 01/09/18 11:00 52 18 105/54 100 Mechanical Ventilator 30 01/09/18 10:00 55 21 109/55 100 Mechanical Ventilator 30 01/09/18 09:15 52 15 40 01/09/18 09:00 59 22 109/61 100 Mechanical Ventilator 30 01/09/18 08:52 60 127/61 01/09/18 08:00 40 01/09/18 08:00 98.7 57 17 121/60 100 Mechanical Ventilator 40 98.7 01/09/18 08:00 62 01/09/18 07:00 99.0 57 18 125/68 100 Mechanical Ventilator 40 99.0 01/09/18 06:40 54 16 40 01/09/18 06:00 99.0 54 18 148/67 100 Mechanical Ventilator 40 99.0 01/09/18 05:59 144/66 01/09/18 05:24 50 17 40 01/09/18 05:00 99.2 55 18 144/66 100 Mechanical Ventilator 40 99.2 01/09/18 04:00 55 01/09/18 04:00 40 01/09/18 04:00 99.6 62 23 161/61 100 Mechanical Ventilator 40 99.6 01/09/18 03:30 56 19 40 01/09/18 03:22 163/54 01/09/18 03:00 100.0 62 21 157/68 100 Mechanical Ventilator 40 100.0 01/09/18 02:00 100.6 62 20 163/54 100 Mechanical Ventilator 40 100.6 01/09/18 01:44 194/69 01/09/18 01:30 64 20 40 01/09/18 01:00 101.4 65 20 194/69 100 Mechanical Ventilator 40 101.4 01/09/18 00:00 102.3 68 22 178/68 100 Mechanical Ventilator 40 102.3 01/08/18 23:58 68 01/08/18 23:30 68 21 40 01/08/18 23:00 68 22 155/51 100 Mechanical Ventilator 40 01/08/18 22:00 67 23 161/54 100 Mechanical Ventilator 40 01/08/18 21:30 62 24 40 01/08/18 21:00 66 19 155/64 100 Mechanical Ventilator 40 01/08/18 20:00 65 01/08/18 20:00 40 01/08/18 20:00 98.5 63 22 153/48 100 Mechanical Ventilator 40 98.5 01/08/18 19:30 65 26 40 Intake and Output 01/08/18 01/09/18 19:00 07:00 Intake Total 500 ml 795 ml Output Total 1805 ml 2060 ml Balance -1305 ml -1265 ml Free Water 100 ml IV Total 360 ml 515 ml Tube Feeding 140 ml 180 ml Output Urine Total 1805 ml 2060 ml Laboratory Tests 01/09/18 04:00: White Blood Count 13.8H, Red Blood Count 4.73, Hemoglobin 13.3L, Hematocrit 39.2L, Mean Corpuscular Volume 83, Mean Corpuscular Hemoglobin 28.2, Mean Corpuscular Hemoglobin Concent 34.0, Red Cell Distribution Width 13.1, Platelet Count 194, Mean Platelet Volume 8.3, Neutrophils (%) (Auto) 74.6, Lymphocytes (% ) (Auto) 15.2L, Monocytes (%) (Auto) 9.0, Eosinophils (%) (Auto) 0.4, Basophils (%) (Auto) 0.8, Arterial Blood pH 7.500H, Arterial Blood Partial Pressure CO2 33.4L, Arterial Blood Partial Pressure O2 147.4H, Arterial Blood HCO3 25.5, Arterial Blood Oxygen Saturation 98.9H, Arterial Blood Base Excess 2.7, Chavo Test Positive, Sodium Level 133L, Potassium Level 3.0L, Chloride Level 96L, Carbon Dioxide Level 25, Anion Gap 12, Blood Urea Nitrogen 60H, Creatinine 3.7H , Estimat Glomerular Filtration Rate 16.5, Glucose Level 359#H, Calcium Level 7.8L, Magnesium Level 1.7L, Total Bilirubin 1.5H, Direct Bilirubin 0.8H, Aspartate Amino Transf (AST/SGOT) 190H, Alanine Aminotransferase (ALT/SGPT) 384H , Alkaline Phosphatase 199H, Pro-B-Type Natriuretic Peptide [id number], Total Protein 7.0, Albumin 1.8L, Lipase 343 Height (Feet): 5 Height (Inches): 4.00 Weight (Pounds): 174 General Appearance: other - intubated Neck: normal alignment Cardiovascular: regular rhythm Respiratory/Chest: rhonchi - bilaterally Abdomen: soft Neurologic: unresponsive KEILA KHAN January 09, 2018 19:24
[2018-01-09] MEDS: Dyna-Hex 2% Top Sol 2oz TOPIC SCH (19:43)
[2018-01-09] MEDS: Atorvastatin 20mg tab ORAL SCH (20:45)
--- NOTE | 2018-01-09 21:15 | Progress Note ---
DATE: 01/09/2018 SUBJECTIVE: The patient remains comatose. He is on ventilator support. He was evaluated with daughter at bedside. Cardiology issues were reviewed with her. OBJECTIVE: VITAL SIGNS: Blood pressure 137/63, heart rate 57, respiratory rate 15, and afebrile. HEENT: Endotracheal tube with thin secretions. LUNGS: Coarse breath sounds. No wheezing or rales. HEART: Regular rhythm. Slow rate. Normal S1, S2. ABDOMEN: Soft. EXTREMITIES: No edema. LABORATORY DATA: Blood cultures positive for E. coli. White count 13.8, hemoglobin 13.3. Sodium 133, potassium 3.0, bicarbonate 25, BUN 60, and creatinine 3.7. Albumin 1.8. Natriuretic peptide is 13,000. Troponin pending. Magnesium 1.7. IMPRESSION: 1. Status post cardiopulmonary arrest. 2. Sepsis with shock due to Escherichia coli bacteremia. 3. Acute myocardial infarction. 4. Respiratory failure. 5. Hypokalemia. 6. Hypomagnesemia. 7. Shock liver. 8. Acute renal failure. 9. Possible apical left ventricular thrombus. 10. Beta-matt associated bradycardia. PLAN: 1. Ventilator support. 2. Antimicrobials. 3. Decrease dose of beta-matt due to bradycardia. 4. Continue anti-platelet therapy. 5. Maintain full anticoagulation. 6. Repeat echocardiogram. 7. Neuro checks. Yosef England M.D. DR: Ashanti JOB#: [id number] CC:
[2018-01-09] MEDS ORDERED: Sodium Chloride 500ML 500 ML IV ONE (22:00)
[2018-01-10] VITALS (28 sets, daily range): BP systolic 64–164; BP diastolic 38–74
[2018-01-10] MEDS: Zosyn 2.25 gm in D5W 55ml IV SCH ×4 (01:50→21:08)
[2018-01-10 04:35] LABS: BASOPHILS % (AUTO) 1.3 % (0.0-2.0); EOSINOPHILS % (AUTO) 0.9 % (0.0-3.0); HEMOGLOBIN 14.4 G/DL (14.2-18.0); MEAN CORPUSCULAR VOLUME 84 FL (80-99); MONOCYTES % (AUTO) 12.3 % (1.0-10.0); NEUTROPHILS % (AUTO) 68.5 % (45.0-75.0); PLATELET COUNT 191 K/UL (150-450); RED BLOOD COUNT 4.77 M/UL (4.70-6.10); RED CELL DISTRIBUTION WIDTH 13.2 % (11.6-14.8); WHITE BLOOD COUNT 13.7 K/UL (4.8-10.8)
[2018-01-10 05:04] LABS: ALANINE AMINOTRANSFERASE 380 U/L (12-78); ALBUMIN 1.9 G/DL (3.4-5.0); ALBUMIN/GLOBULIN RATIO 0.4 (1.0-2.7); ALKALINE PHOSPHATASE 241 U/L (46-116); ANION GAP 11 mmol/L (5-15); ASPARTATE AMINO TRANSFERASE 269 U/L (15-37); BILIRUBIN,TOTAL 1.5 MG/DL (0.2-1.0); BLOOD UREA NITROGEN 66 mg/dL (7-18); CALCIUM 7.8 MG/DL (8.5-10.1); CARBON DIOXIDE 29 MMOL/L (21-32); CHLORIDE 98 MMOL/L (98-107); CREATININE 3.3 MG/DL (0.55-1.30); POTASSIUM 4.3 MMOL/L (3.5-5.1); SODIUM 137 MMOL/L (136-145)
[2018-01-10] MEDS: Nitroglycerin 2% oint pkt TOPIC SCH ×3 (05:41→18:33)
[2018-01-10] MEDS: NovoLOG Insulin Flexpen SUBQ SCH ×4 (05:42→23:57)
[2018-01-10] MEDS: Atenolol 25mg tab ORAL SCH (09:00)
[2018-01-10] MEDS: levETIRAcetam 500mg/NS100ml 100 ML IVPB SCH ×2 (09:56→21:09)
[2018-01-10] MEDS: Aspirin Baby 81mg ORAL SCH (09:57)
[2018-01-10] MEDS: Dorzolamide 2% 10ml Btl BOTH EYES SCH ×3 (09:57→18:30)
[2018-01-10] MEDS: Enoxaparin Sodium 300mg/3ml vial SUBQ SCH (09:57)
--- NOTE | 2018-01-10 10:28 | Diagnostic Imaging Report ---
Indication: Dyspnea Comparison: 01/09/2018 A single view chest radiograph was obtained. Findings: Lungs are better inflated and clear. Endotracheal tube is in good position. NG tube is in good position. Right size is normal and stable. IMPRESSION: No acute findings
--- NOTE | 2018-01-10 13:44 | Pulmonology Progress Note ---
Assessment/Plan Assessment/Plan no seizures or posturing intubated on vent T lower remains unresponsive disc w at bedside, she signed POLST for DNR now hypotensive and bradycardic Advised that he may pass today 1. BC e coli, [employer] 2. Acute myocardial infarction 3. Diabetes, A1c>12 4. Hypertension, now hypotension 5. Hyperlipidemia. 6. s/p arrest, anoxic/ischemia encephalopathy 7. resp failure 8. ROSA M 9. hepatic disorder, shock liver Subjective ROS Limited/Unobtainable: Yes Allergies: Coded Allergies: No Known Allergies (Verified , 09/15/17) Objective Last 24 Hour Vital Signs Date Time Temp Pulse Resp B/P (MAP) Pulse Ox O2 Delivery O2 Flow Rate FiO2 01/10/18 13:00 97.6 44 13 79/45 100 Mechanical Ventilator 60 97.6 01/10/18 12:55 61 19 60 01/10/18 12:00 60 01/10/18 12:00 62/41 01/10/18 12:00 97.0 42 15 65/40 100 Mechanical Ventilator 60 97.0 01/10/18 12:00 45 01/10/18 11:13 47 21 60 01/10/18 11:00 97.0 47 15 64/38 100 Mechanical Ventilator 60 97.0 01/10/18 10:00 97.0 47 15 87/47 100 Mechanical Ventilator 60 97.0 01/10/18 09:29 50 15 60 01/10/18 09:00 97.0 47 15 87/47 100 Mechanical Ventilator 60 97.0 01/10/18 09:00 45 72/44 01/10/18 08:00 44 01/10/18 08:00 60 01/10/18 08:00 97.0 56 15 109/63 100 Mechanical Ventilator 60 97.0 01/10/18 07:20 74 15 60 01/10/18 07:00 53 16 135/73 100 Mechanical Ventilator 60 01/10/18 06:00 57 16 155/70 100 Mechanical Ventilator 60 01/10/18 05:41 138/70 01/10/18 05:22 61 15 60 01/10/18 05:00 59 15 134/61 100 Mechanical Ventilator 60 01/10/18 04:00 60 01/10/18 04:00 99.4 59 16 140/66 100 Mechanical Ventilator 60 99.4 01/10/18 03:27 55 5/8/18 03:19 65 22 60 01/10/18 03:00 66 17 115/62 100 Mechanical Ventilator 60 01/10/18 02:00 57 15 107/58 100 Mechanical Ventilator 60 01/10/18 01:30 58 16 137/69 100 Mechanical Ventilator 60 01/10/18 01:21 63 20 60 01/10/18 01:00 54 16 111/57 100 Mechanical Ventilator 60 01/10/18 00:30 55 15 80/47 100 Mechanical Ventilator 60 01/10/18 00:00 60 01/10/18 00:00 99.1 56 15 83/48 100 Mechanical Ventilator 60 99.1 01/09/18 23:45 54 15 122/65 100 Mechanical Ventilator 60 01/09/18 23:30 54 16 79/45 100 Mechanical Ventilator 60 01/09/18 23:06 55 01/09/18 23:00 54 15 81/51 100 Mechanical Ventilator 30 01/09/18 22:34 61 21 60 01/09/18 22:33 60 01/09/18 22:30 56 15 109/57 99 Mechanical Ventilator 30 01/09/18 22:00 55 14 78/53 98 Mechanical Ventilator 30 01/09/18 21:45 55 15 78/47 98 Mechanical Ventilator 30 01/09/18 21:30 99.1 59 16 80/50 98 Mechanical Ventilator 30 99.1 01/09/18 21:25 55 15 40 01/09/18 21:15 59 15 71/45 96 Mechanical Ventilator 30 01/09/18 21:00 60 15 76/50 97 Mechanical Ventilator 30 01/09/18 20:45 62 16 116/65 98 Mechanical Ventilator 30 01/09/18 20:00 99.9 62 17 85/56 98 Mechanical Ventilator 30 99.9 01/09/18 20:00 30 01/09/18 19:30 63 17 101/55 98 Mechanical Ventilator 30 01/09/18 19:29 66 17 40 01/09/18 19:18 66 01/09/18 19:00 61 18 105/60 99 Mechanical Ventilator 30 01/09/18 18:58 98.7 01/09/18 18:00 67 18 140/76 99 Mechanical Ventilator 30 01/09/18 17:59 98.8 01/09/18 17:58 153/74 01/09/18 17:29 69 24 40 01/09/18 17:00 66 19 170/82 99 Mechanical Ventilator 30 01/09/18 16:00 30 01/09/18 16:00 98.5 61 19 172/74 100 Mechanical Ventilator 40 98.5 01/09/18 16:00 60 01/09/18 15:00 57 15 137/63 100 Mechanical Ventilator 30 01/09/18 14:45 59 21 40 01/09/18 14:00 55 16 112/56 100 Mechanical Ventilator 30 Intake and Output 01/09/18 01/10/18 19:00 07:00 Intake Total 1010 ml 863 ml Output Total 2480 ml 1465 ml Balance -1470 ml -602 ml Free Water 200 ml IV Total 570 ml 483 ml Tube Feeding 240 ml 240 ml Other 140 ml Output Urine Total 2480 ml 1465 ml General Appearance: no acute distress - unresponsive Respiratory/Chest: rhonchi Cardiovascular: normal rate, bradycardia Abdomen: soft, non tender Microbiology Date/Time Source Procedure Growth Status 01/07/18 19:00 Sputum Induced Gram Stain - Final Complete 01/07/18 19:00 Sputum Culture - Final Nuvia Albicans Complete 01/07/18 19:00 Indwelling Cath Urine Culture - Final NO GROWTH AFTER 48 HOURS Complete Laboratory Tests 01/09/18 22:19: Arterial Blood pH 7.573*H, Arterial Blood Partial Pressure CO2 29.0L, Arterial Blood Partial Pressure O2 57.3L, Arterial Blood HCO3 26.2H, Arterial Blood Oxygen Saturation 91.7L, Arterial Blood Base Excess 4.9, Chavo Test Positive 01/10/18 04:00: White Blood Count 13.7H, Red Blood Count 4.77, Hemoglobin 14.4, Hematocrit 40.0L , Mean Corpuscular Volume 84, Mean Corpuscular Hemoglobin 30.3, Mean Corpuscular Hemoglobin Concent 36.1H, Red Cell Distribution Width 13.2, Platelet Count 191, Mean Platelet Volume 8.8, Neutrophils (%) (Auto) 68.5, Lymphocytes (%) (Auto) 17.0L, Monocytes (%) (Auto) 12.3H, Eosinophils (%) (Auto ) 0.9, Basophils (%) (Auto) 1.3, Sodium Level 137, Potassium Level 4.3, Chloride Level 98, Carbon Dioxide Level 29, Anion Gap 11, Blood Urea Nitrogen 66H, Creatinine 3.3H, Estimat Glomerular Filtration Rate 18.8, Glucose Level 280H, Lactic Acid Level 2.50H, Calcium Level 7.8L, Total Bilirubin 1.5H, Direct Bilirubin 1.0H, Aspartate Amino Transf (AST/SGOT) 269H, Alanine Aminotransferase (ALT/SGPT) 380H, Alkaline Phosphatase 241H, Troponin I 2.130H, Total Protein 6.5, Albumin 1.9L, Globulin 4.6, Albumin/Globulin Ratio 0.4L Current Medications Medications (Trade) Dose Ordered Sig/Tyrell Route PRN Reason Start Time Stop Time Status Last Admin Dose Admin Acetaminophen (Tylenol) 650 mg Q6H PRN GT Mild Pain/Temp > 100.5 01/06/18 11:15 02/05/18 11:14 01/07/18 15:02 Aspirin (ASA) 81 mg DAILY ORAL 01/06/18 09:00 02/05/18 08:59 01/10/18 09:57 Atenolol (Tenormin) 25 mg DAILY ORAL 01/10/18 09:00 02/09/18 08:59 Atorvastatin Calcium (Lipitor) 20 mg BEDTIME ORAL 01/06/18 21:00 02/05/18 20:59 01/09/18 20:45 Calcium Carbonate (Tums) 500 mg BID PRN ORAL HEARTBURN 01/06/18 09:00 02/04/18 19:03 Chlorhexidine Gluconate (Debi-Hex 2%) 1 applic DAILY@2000 TOPIC 01/06/18 20:00 02/05/18 19:59 01/09/18 19:43 Dextrose (Dextrose 50%) 25 ml STAT PRN IV Hypoglycemia 01/08/18 07:00 02/07/18 06:59 Dextrose (Dextrose 50%) 50 ml STAT PRN IV Hypoglycemia 01/08/18 07:00 02/07/18 06:59 Dorzolamide HCl (Trusopt) 1 drop TID BOTH EYES 01/06/18 09:00 02/04/18 17:59 01/10/18 12:47 Enoxaparin Sodium (Lovenox) 70 mg DAILY SUBQ 01/08/18 09:00 02/07/18 08:59 01/10/18 09:57 Famotidine (Pepcid) 20 mg BEDTIME ORAL 01/06/18 21:00 02/04/18 20:59 01/09/18 20:45 Insulin Aspart (NovoLOG) EVERY 6 HOURS SUBQ 01/08/18 12:00 02/07/18 11:59 01/10/18 12:45 Levetiracetam 100 ml @ 400 mls/hr Q12HR IVPB 01/06/18 21:00 02/05/18 20:59 01/10/18 09:56 Linezolid 300 ml @ 300 mls/hr Q12H IVPB 01/07/18 15:30 01/14/18 15:29 01/10/18 03:13 Nitroglycerin (Nitro-Bid) 1 inch TID@0600,1200,1800 TOPIC 01/09/18 01:15 02/08/18 01:14 01/10/18 05:41 Ondansetron HCl (Zofran) 4 mg Q6H PRN IVP Nausea & Vomiting 01/06/18 07:15 02/04/18 19:07 Piperacillin Sod/ Tazobactam Sod 2.25 gm/Dextrose 55 ml @ 110 mls/hr Q6H IV 01/07/18 20:00 01/14/18 19:59 01/10/18 09:57 Pregabalin (Lyrica) 150 mg DAILY@1700 ORAL 01/06/18 17:00 02/05/18 16:59 01/09/18 17:59 Shreyas Priest MD January 10, 2018 13:44
[2018-01-10] MEDS: Lyrica 75mg cap ORAL SCH (17:00)
--- NOTE | 2018-01-10 18:51 | Neurology Progress Note ---
Interim History Interim History Interim History Mr. Salas Ellington continues to be comatose. There has been no change in his condition. He has stopped decerebrating. His myoclonic jerks have also stopped. He is still on a ventilator for respiratory support. He is being fed via an NGT. His is afebrile. He has been exhibiting some autonomic dysfunction. Review of Systems Neuro Review of Systems Unable to obtain. Objective Physical Exam Last Vital Signs Date Time Temp Pulse Resp B/P (MAP) Pulse Ox O2 Delivery O2 Flow Rate FiO2 01/10/18 18:33 144/63 01/10/18 17:00 99.4 54 15 100 Mechanical Ventilator 60 99.4 01/05/18 18:15 2.0 Laboratory Tests Test 01/09/18 22:19 01/10/18 04:00 Arterial Blood pH 7.573 (7.350-7.450) Arterial Blood Partial Pressure CO2 29.0 mmHg (35.0-45.0) L Arterial Blood Partial Pressure O2 57.3 mmHg (75.0-100.0) L Arterial Blood HCO3 26.2 mmol/L (22.0-26.0) H Arterial Blood Oxygen Saturation 91.7 % (92.0-98.0) L Arterial Blood Base Excess 4.9 Chavo Test Positive White Blood Count 13.7 K/UL (4.8-10.8) H Red Blood Count 4.77 M/UL (4.70-6.10) Hemoglobin 14.4 G/DL (14.2-18.0) Hematocrit 40.0 % (42.0-52.0) L Mean Corpuscular Volume 84 FL (80-99) Mean Corpuscular Hemoglobin 30.3 PG (27.0-31.0) Mean Corpuscular Hemoglobin Concent 36.1 G/DL (32.0-36.0) H Red Cell Distribution Width 13.2 % (11.6-14.8) Platelet Count 191 K/UL (150-450) Mean Platelet Volume 8.8 FL (6.5-10.1) Neutrophils (%) (Auto) 68.5 % (45.0-75.0) Lymphocytes (%) (Auto) 17.0 % (20.0-45.0) L Monocytes (%) (Auto) 12.3 % (1.0-10.0) H Eosinophils (%) (Auto) 0.9 % (0.0-3.0) Basophils (%) (Auto) 1.3 % (0.0-2.0) Sodium Level 137 MMOL/L (136-145) Potassium Level 4.3 MMOL/L (3.5-5.1) Chloride Level 98 MMOL/L (98-107) Carbon Dioxide Level 29 MMOL/L (21-32) Anion Gap 11 mmol/L (5-15) Blood Urea Nitrogen 66 mg/dL (7-18) H Creatinine 3.3 MG/DL (0.55-1.30) H Estimat Glomerular Filtration Rate 18.8 mL/min (>60) Glucose Level 280 MG/DL (74-106) H Lactic Acid Level 2.50 mmol/L (0.66-2.22) H Calcium Level 7.8 MG/DL (8.5-10.1) L Total Bilirubin 1.5 MG/DL (0.2-1.0) H Direct Bilirubin 1.0 MG/DL (0.0-0.3) H Aspartate Amino Transf (AST/SGOT) 269 U/L (15-37) H Alanine Aminotransferase (ALT/SGPT) 380 U/L (12-78) H Alkaline Phosphatase 241 U/L (46-116) H Troponin I 2.130 ng/mL (0.000-0.056) Total Protein 6.5 G/DL (6.4-8.2) Albumin 1.9 G/DL (3.4-5.0) L Globulin 4.6 g/dL Albumin/Globulin Ratio 0.4 (1.0-2.7) L Neurologic Exam Objective PHYSICAL EXAMINATION: GENERAL: He is a well-developed, relatively well-nourished, gentleman , lying in an ICU bed, connected to a ventilator via an oral tracheal tube. HEAD: Normocephalic and atraumatic. EENT: Examination benign. NECK: No neck rigidity was observed. NEUROLOGIC EXAMINATION: MENTAL STATUS EXAMINATION: He was comatose and did not respond even to deep painful stimuli. Further mental status testing was impossible. He did, however, exhibit reflex withdrawal of both lower extremities on deep pain. SPEECH: Could not be tested. LANGUAGE: Could not be tested. CRANIAL NERVE EXAMINATION: II: He did not blink to threat. III, IV & : The external ocular movements were present, but significantly diminished on oculocephalic maneuvers. The pupils were 3 mm in diameter and nonreactive. V & VII: The corneal reflexes were present bilaterally. VIII: He did not respond to sounds and had no nystagmus. IX & X: The gag reflex was absent on manipulating the endotracheal tube. XI: The sternocleidomastoids and trapezii did not function. XII: Could not be tested. MOTOR SYSTEM: The tone was normal in all four extremities. Examination of muscle mass revealed no focal wasting. Examination of power could not be performed because even on applying deep painful stimuli, he only withdrew in his lower extremities reflexly and no movements were seen in the upper extremities. SENSORY EXAMINATION: He did respond to deep pain at the spinal level in the lower extremities only. REFLEXES: 2+ and bilaterally symmetrical at the biceps, triceps, brachioradialis, and knees. 0 at both ankles. The plantar responses were extensor bilaterally. COORDINATION, STANCE & GAIT: Could not be tested. ABNORMAL MOVEMENTS: None. Impression/Recommendations Diagnostic Impression 1. Mr. Ibrahima Ellington is a 67-year-old, right-handed, gentleman, who does have a past history of hypertension, diabetes mellitus, dyslipidemia, benign prostatic hypertrophy, neuropathy, gallstones, and pancreatitis, who was hospitalized on 01/05/2018 for urinary sepsis and a possible acute myocardial infarction. In the early hours of 01/06/2018, he was noted to be bradycardic following a bout of nausea and vomiting and then became unresponsive. A Code Blue was called and he had to be intubated, had chest compressions, had to be given epinephrine, and then there was a return of pulse and blood pressure. There was an 8-minute period, where a blood pressure and pulse could not be recorded. Since then, the patient has been comatose and had been exhibiting some abnormal movements, which were labeled seizures. 2. He continues to be comatose. There has been no significant change in his condition. He has stopped decerebrating. His myoclonic jerks have also stopped. He is still on a ventilator for respiratory support. He is being fed via an NGT. He is afebrile. 3. On neurological examination, at this time, he is comatose and only responds to deep pain with reflex withdrawal in both lower extremities. He does have minimal eye movements on oculocephalic maneuvers and subdued corneal reflexes bilaterally. He does not respond to pain in the upper extremities and withdraws his lower extremities to deep pain. His deep tendon reflexes are physiological and he exhibits extensor plantar responses bilaterally. 4. His laboratory data on my initial evaluation revealed a WBC count elevated at 16,400 and anemia with a hemoglobin of 10.8. Sodium at 135, BUN elevated at 24 with a creatinine of 1.5, and glucose elevated at 275. Hemoglobin A1c at 12.3%. Lactic acidosis at 6.8. Elevated liver function tests. Elevated troponins. Low albumin at 2.2. High TSH at 4.29. His urinalysis reveals 1+ leukocyte esterase and 2-4 red blood cells and 2-4 white blood cells per high- power field. His arterial blood gas performed at 09:12 hours on 01/06/18 revealed a pH of 7.27, a pCO2 of 31.9, and a pO2 of 60.4. 5. The EEG revealed signs of a moderately severe encephalopathy and no reactivity to external stimuli. However, no inter-ictal or ictal discharges were seen. 6. The CT of the brain done on 01/08/18 reveals no acute intracranial pathology with perhaps some generalized cerebral edema - official results pending. 7. 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 8. His myoclonus has resolved, however he is still severely encephalopathic. 9. The prognosis for recovery of neurologic function is poor and there has been no improvement in function > 4 days following the brain insult. Recommendations 1. Continue present management as per family's wishes. 2. Continue Keppra 500 mg IV q.12 hours. 3. Agree with DNR status. 4. Informed family of dismal prognosis for recovery of neurologic function. Joslyn Corey M.D., M.S.P.Martha. JOSLYN COREY January 10, 2018 18:51
--- NOTE | 2018-01-10 20:45 | Nephrology Progress Note ---
Assessment/Plan Problem List: (1) CHF (congestive heart failure) (2) ROSA M (acute kidney injury) (3) Cardiac arrest (4) NSTEMI (non-ST elevated myocardial infarction) (5) CHF exacerbation Plan stop bumex drip, grave prognosis, coma no better, I/O -2151 cxr clear Subjective ROS Limited/Unobtainable: Yes Objective Objective Last 24 Hour Vital Signs Date Time Temp Pulse Resp B/P (MAP) Pulse Ox O2 Delivery O2 Flow Rate FiO2 01/10/18 19:18 55 16 60 01/10/18 18:33 144/63 01/10/18 18:00 99.6 57 16 164/59 100 Mechanical Ventilator 60 99.6 01/10/18 17:00 99.4 54 15 133/74 100 Mechanical Ventilator 60 99.4 01/10/18 16:33 86 16 60 01/10/18 16:00 88 01/10/18 16:00 98.1 100 15 140/62 100 Mechanical Ventilator 60 98.1 01/10/18 16:00 60 01/10/18 15:09 93 17 60 01/10/18 15:00 98.0 99 17 81/48 100 Mechanical Ventilator 60 98.0 01/10/18 14:00 97.5 56 15 82/52 100 Mechanical Ventilator 60 97.5 01/10/18 13:00 97.6 44 13 79/45 100 Mechanical Ventilator 60 97.6 01/10/18 12:55 61 19 60 01/10/18 12:00 60 01/10/18 12:00 62/41 01/10/18 12:00 97.0 42 15 65/40 100 Mechanical Ventilator 60 97.0 01/10/18 12:00 45 01/10/18 11:13 47 21 60 01/10/18 11:00 97.0 47 15 64/38 100 Mechanical Ventilator 60 97.0 01/10/18 10:00 97.0 47 15 87/47 100 Mechanical Ventilator 60 97.0 01/10/18 09:29 50 15 60 01/10/18 09:00 97.0 47 15 87/47 100 Mechanical Ventilator 60 97.0 01/10/18 09:00 45 72/44 01/10/18 08:00 44 01/10/18 08:00 60 01/10/18 08:00 97.0 56 15 109/63 100 Mechanical Ventilator 60 97.0 01/10/18 07:20 74 15 60 01/10/18 07:00 53 16 135/73 100 Mechanical Ventilator 60 01/10/18 06:00 57 16 155/70 100 Mechanical Ventilator 60 01/10/18 05:41 138/70 01/10/18 05:22 61 15 60 01/10/18 05:00 59 15 134/61 100 Mechanical Ventilator 60 01/10/18 04:00 60 01/10/18 04:00 99.4 59 16 140/66 100 Mechanical Ventilator 60 99.4 01/10/18 03:27 55 01/10/18 03:19 65 22 60 01/10/18 03:00 66 17 115/62 100 Mechanical Ventilator 60 01/10/18 02:00 57 15 107/58 100 Mechanical Ventilator 60 01/10/18 01:30 58 16 137/69 100 Mechanical Ventilator 60 01/10/18 01:21 63 20 60 01/10/18 01:00 54 16 111/57 100 Mechanical Ventilator 60 01/10/18 00:30 55 15 80/47 100 Mechanical Ventilator 60 01/10/18 00:00 60 01/10/18 00:00 99.1 56 15 83/48 100 Mechanical Ventilator 60 99.1 01/09/18 23:45 54 15 122/65 100 Mechanical Ventilator 60 01/09/18 23:30 54 16 79/45 100 Mechanical Ventilator 60 01/09/18 23:06 55 01/09/18 23:00 54 15 81/51 100 Mechanical Ventilator 30 01/09/18 22:34 61 21 60 01/09/18 22:33 60 01/09/18 22:30 56 15 109/57 99 Mechanical Ventilator 30 01/09/18 22:00 55 14 78/53 98 Mechanical Ventilator 30 01/09/18 21:45 55 15 78/47 98 Mechanical Ventilator 30 01/09/18 21:30 99.1 59 16 80/50 98 Mechanical Ventilator 30 99.1 01/09/18 21:25 55 15 40 01/09/18 21:15 59 15 71/45 96 Mechanical Ventilator 30 01/09/18 21:00 60 15 76/50 97 Mechanical Ventilator 30 01/09/18 20:45 62 16 116/65 98 Mechanical Ventilator 30 Intake and Output 01/09/18 01/10/18 19:00 07:00 Intake Total 1010 ml 863 ml Output Total 2480 ml 1465 ml Balance -1470 ml -602 ml Free Water 200 ml IV Total 570 ml 483 ml Tube Feeding 240 ml 240 ml Other 140 ml Output Urine Total 2480 ml 1465 ml Laboratory Tests 01/09/18 22:19: Arterial Blood pH 7.573*H, Arterial Blood Partial Pressure CO2 29.0L, Arterial Blood Partial Pressure O2 57.3L, Arterial Blood HCO3 26.2H, Arterial Blood Oxygen Saturation 91.7L, Arterial Blood Base Excess 4.9, Chavo Test Positive 01/10/18 04:00: White Blood Count 13.7H, Red Blood Count 4.77, Hemoglobin 14.4, Hematocrit 40.0L , Mean Corpuscular Volume 84, Mean Corpuscular Hemoglobin 30.3, Mean Corpuscular Hemoglobin Concent 36.1H, Red Cell Distribution Width 13.2, Platelet Count 191, Mean Platelet Volume 8.8, Neutrophils (%) (Auto) 68.5, Lymphocytes (%) (Auto) 17.0L, Monocytes (%) (Auto) 12.3H, Eosinophils (%) (Auto ) 0.9, Basophils (%) (Auto) 1.3, Sodium Level 137, Potassium Level 4.3, Chloride Level 98, Carbon Dioxide Level 29, Anion Gap 11, Blood Urea Nitrogen 66H, Creatinine 3.3H, Estimat Glomerular Filtration Rate 18.8, Glucose Level 280H, Lactic Acid Level 2.50H, Calcium Level 7.8L, Total Bilirubin 1.5H, Direct Bilirubin 1.0H, Aspartate Amino Transf (AST/SGOT) 269H, Alanine Aminotransferase (ALT/SGPT) 380H, Alkaline Phosphatase 241H, Troponin I 2.130H, Total Protein 6.5, Albumin 1.9L, Globulin 4.6, Albumin/Globulin Ratio 0.4L Height (Feet): 5 Height (Inches): 4.00 Weight (Pounds): 173 Neck: normal alignment Cardiovascular: regular rhythm Respiratory/Chest: lungs clear Abdomen: soft Extremities: other - no edema Neurologic: unresponsive KEILA KHAN January 10, 2018 20:45
[2018-01-10] MEDS: Dyna-Hex 2% Top Sol 2oz TOPIC SCH (21:08)
[2018-01-10] MEDS: Atorvastatin 20mg tab ORAL SCH (21:09)
[2018-01-11] VITALS (24 sets, daily range): BP systolic 99–185; BP diastolic 43–137
--- NOTE | 2018-01-11 02:00 | Progress Note ---
DATE: 01/10/2018 CARDIOLOGY PROGRESS NOTE SUBJECTIVE: The patient remains in the intensive care unit. He is comatose, unresponsive, on ventilator support, and orally intubated. He has not had seizures or tremors. He is no longer exhibiting posturing signs. He has had episodes of recurring hypotension and bradycardia overnight. His cardiovascular regimen was adjusted. OBJECTIVE: VITAL SIGNS: Blood pressure 79/45, pulse 44, respiratory rate 13, afebrile. LUNGS: Clear with few rhonchi. CARDIAC: Regular rhythm. Slow rate. Normal S1, S2 with a fourth heart sound. ABDOMEN: Soft, nontender. NG tube in place. EXTREMITIES: With trace edema. LABORATORY DATA: ABG, pH 7.57, pCO2 29, pO2 57. White count 13.7, hemoglobin 14.4. Glucose 280. Lactic acid 2.5. Sodium 137, potassium 4.3, BUN 66, creatinine 3.3, bicarbonate 29. IMPRESSIONS: 1. Status post cardiopulmonary arrest. 2. Acute myocardial infarction. 3. Lactic acidosis. 4. Sepsis with shock. 5. Respiratory failure. 6. Postanoxic encephalopathy. 7. Dysphagia. 8. Bradycardia. 9. Cardiogenic insufficiency. 10. 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 11. Condition critical. 12. Prognosis guarded. 13. Possible apical thrombus. PLAN: 1. Continue pressor support. 2. Volume resuscitation. 3. Antimicrobials. 4. Diuresis if blood pressure can tolerate. 5. May need tracheostomy for long-term care. 6. Continue anti-platelet therapy. 7. I will review echocardiogram and determine need for continued anticoagulation. Yosef England M.D. DR: MARÍA ELENA JOB#: [id number] CC:
[2018-01-11] MEDS: Zosyn 2.25 gm in D5W 55ml IV SCH ×2 (02:22→09:48)
[2018-01-11 05:59] LABS: ANION GAP 10 mmol/L (5-15); BLOOD UREA NITROGEN 74 mg/dL (7-18); CALCIUM 8.5 MG/DL (8.5-10.1); CARBON DIOXIDE 28 MMOL/L (21-32); CHLORIDE 96 MMOL/L (98-107); CREATININE 3.2 MG/DL (0.55-1.30); POTASSIUM 4.2 MMOL/L (3.5-5.1); SODIUM 134 MMOL/L (136-145)
[2018-01-11] MEDS: NovoLOG Insulin Flexpen SUBQ SCH ×4 (06:28→23:49)
[2018-01-11] MEDS: Dorzolamide 2% 10ml Btl BOTH EYES SCH ×3 (09:00→18:38)
[2018-01-11] MEDS: Atenolol 25mg tab ORAL SCH (09:48)
[2018-01-11] MEDS: Aspirin Baby 81mg ORAL SCH (09:48)
[2018-01-11] MEDS: Enoxaparin Sodium 300mg/3ml vial SUBQ SCH (10:21)
[2018-01-11] MEDS: levETIRAcetam 500mg/NS100ml 100 ML IVPB SCH ×2 (10:22→20:55)
--- NOTE | 2018-01-11 12:44 | Pulmonology Progress Note ---
Assessment/Plan Assessment/Plan no seizures or posturing, + singultus intubated on vent remains comatose disc w at bedside, she is asking for terminal extubation this afternoon advised of policy for physician to be present will try to coordinate with family prognosis terminal 1. BC e coli, TAKE OUT WAITER 2. Acute myocardial infarction 3. Diabetes, A1c>12 4. Hypertension, now hypotension 5. Hyperlipidemia. 6. s/p arrest, anoxic/ischemia encephalopathy 7. resp failure 8. ROSA M 9. hepatic disorder, shock liver Subjective ROS Limited/Unobtainable: Yes Allergies: Coded Allergies: No Known Allergies (Verified , 09/15/17) Objective Last 24 Hour Vital Signs Date Time Temp Pulse Resp B/P (MAP) Pulse Ox O2 Delivery O2 Flow Rate FiO2 01/11/18 10:36 59 20 60 01/11/18 09:48 62 151/63 01/11/18 09:28 63 18 60 01/11/18 09:00 61 16 158/62 100 Mechanical Ventilator 40 01/11/18 08:00 97.4 56 15 151/63 100 Mechanical Ventilator 60 97.4 01/11/18 08:00 60 01/11/18 07:29 56 17 60 01/11/18 07:00 56 18 171/70 100 Mechanical Ventilator 60 01/11/18 06:00 57 17 179/69 100 Mechanical Ventilator 60 01/11/18 05:04 59 17 60 01/11/18 05:00 58 16 185/77 100 Mechanical Ventilator 60 01/11/18 04:00 97.5 59 17 156/61 100 Mechanical Ventilator 60 97.5 01/11/18 04:00 60 01/11/18 04:00 59 01/11/18 03:00 62 19 156/59 100 Mechanical Ventilator 60 01/11/18 02:46 61 18 60 01/11/18 02:00 62 19 155/60 100 Mechanical Ventilator 60 01/11/18 01:00 64 19 146/59 100 Mechanical Ventilator 60 01/11/18 00:55 62 18 60 01/11/18 00:00 60 01/11/18 00:00 61 01/11/18 00:00 101.7 61 17 128/60 100 Mechanical Ventilator 60 101.7 01/10/18 23:00 61 17 141/55 100 Mechanical Ventilator 60 01/10/18 22:42 62 17 60 01/10/18 22:00 61 17 139/60 100 Mechanical Ventilator 60 01/10/18 21:17 62 18 60 01/10/18 21:00 60 17 161/58 100 Mechanical Ventilator 60 01/10/18 20:30 60 17 159/60 100 Mechanical Ventilator 60 01/10/18 20:00 100.5 61 19 164/62 100 Mechanical Ventilator 60 100.5 01/10/18 20:00 62 01/10/18 20:00 60 01/10/18 19:30 56 16 149/60 100 Mechanical Ventilator 60 01/10/18 19:18 55 16 60 01/10/18 19:00 57 16 155/64 100 Mechanical Ventilator 60 01/10/18 18:33 144/63 01/10/18 18:00 99.6 57 16 164/59 100 Mechanical Ventilator 60 99.6 01/10/18 17:00 99.4 54 15 133/74 100 Mechanical Ventilator 60 99.4 01/10/18 16:33 86 16 60 01/10/18 16:00 88 01/10/18 16:00 98.1 100 15 140/62 100 Mechanical Ventilator 60 98.1 01/10/18 16:00 60 01/10/18 15:09 93 17 60 01/10/18 15:00 98.0 99 17 81/48 100 Mechanical Ventilator 60 98.0 01/10/18 14:00 97.5 56 15 82/52 100 Mechanical Ventilator 60 97.5 01/10/18 13:00 97.6 44 13 79/45 100 Mechanical Ventilator 60 97.6 01/10/18 12:55 61 19 60 Intake and Output 01/10/18 01/11/18 19:00 07:00 Intake Total 860 ml 750 ml Output Total 820 ml 1170 ml Balance 40 ml -420 ml IV Total 620 ml 510 ml Tube Feeding 240 ml 240 ml Output Urine Total 820 ml 1170 ml Objective coma General Appearance: no acute distress Neurologic/Psychiatric: unresponsiveness, other - singultus Microbiology Date/Time Source Procedure Growth Status 01/09/18 15:30 Blood Blood Culture - Preliminary NO GROWTH AFTER 24 HOURS Resulted 01/09/18 15:00 Blood Blood Culture - Preliminary NO GROWTH AFTER 24 HOURS Resulted Laboratory Tests 01/11/18 05:20: Sodium Level 134L, Potassium Level 4.2, Chloride Level 96L, Carbon Dioxide Level 28, Anion Gap 10, Blood Urea Nitrogen 74H, Creatinine 3.2H, Estimat Glomerular Filtration Rate 19.5, Glucose Level 479#H, Calcium Level 8.5 Current Medications Medications (Trade) Dose Ordered Sig/Tyrell Route PRN Reason Start Time Stop Time Status Last Admin Dose Admin Acetaminophen (Tylenol) 650 mg Q6H PRN GT Mild Pain/Temp > 100.5 01/06/18 11:15 02/05/18 11:14 01/07/18 15:02 Aspirin (ASA) 81 mg DAILY ORAL 01/06/18 09:00 02/05/18 08:59 01/11/18 09:48 Atenolol (Tenormin) 25 mg DAILY ORAL 01/10/18 09:00 02/09/18 08:59 01/11/18 09:48 Atorvastatin Calcium (Lipitor) 20 mg BEDTIME ORAL 01/06/18 21:00 02/05/18 20:59 01/10/18 21:09 Calcium Carbonate (Tums) 500 mg BID PRN ORAL HEARTBURN 01/06/18 09:00 02/04/18 19:03 Chlorhexidine Gluconate (Debi-Hex 2%) 1 applic DAILY@2000 TOPIC 01/06/18 20:00 02/05/18 19:59 01/10/18 21:08 Dextrose (Dextrose 50%) 25 ml STAT PRN IV Hypoglycemia 01/08/18 07:00 02/07/18 06:59 Dextrose (Dextrose 50%) 50 ml STAT PRN IV Hypoglycemia 01/08/18 07:00 02/07/18 06:59 Dorzolamide HCl (Trusopt) 1 drop TID BOTH EYES 01/06/18 09:00 02/04/18 17:59 01/10/18 18:30 Enoxaparin Sodium (Lovenox) 70 mg DAILY SUBQ 01/08/18 09:00 02/07/18 08:59 01/11/18 10:21 Famotidine (Pepcid) 20 mg BEDTIME ORAL 01/06/18 21:00 02/04/18 20:59 01/10/18 21:09 Insulin Aspart (NovoLOG) EVERY 6 HOURS SUBQ 01/08/18 12:00 02/07/18 11:59 01/11/18 06:28 Levetiracetam 100 ml @ 400 mls/hr Q12HR IVPB 01/06/18 21:00 02/05/18 20:59 01/11/18 10:22 Linezolid 300 ml @ 300 mls/hr Q12H IVPB 01/07/18 15:30 01/14/18 15:29 01/11/18 03:28 Ondansetron HCl (Zofran) 4 mg Q6H PRN IVP Nausea & Vomiting 01/06/18 07:15 02/04/18 19:07 Piperacillin Sod/ Tazobactam Sod 3.375 gm/Sodium Chloride 110 ml @ 27.5 mls/hr EVERY 8 HOURS IVPB 01/11/18 14:00 01/16/18 13:59 Pregabalin (Lyrica) 150 mg DAILY@1700 ORAL 01/06/18 17:00 02/05/18 16:59 01/09/18 17:59 Shreyas Priest MD January 11, 2018 12:44
[2018-01-11] MEDS: Zosyn 3.375gm q8h **Extended infusion IVPB SCH ×4 (14:25→21:51)
[2018-01-11] MEDS ORDERED: Tubing IV Secondary IV ONE (15:22)
[2018-01-11] MEDS ORDERED: Sterile Water Irrig 1000ml IRRIG ONE (15:22)
[2018-01-11] MEDS ORDERED: NS 500ML ONE (15:22)
--- NOTE | 2018-01-11 16:34 | Cardiology Report ---
APPROVED REPORT EKG Measurement Heart [id number] Normal sinus rhythm Left axis deviation Left ventricular hypertrophy with repolarization abnormality Abnormal ECG
--- NOTE | 2018-01-11 16:34 | Cardiology Report ---
APPROVED REPORT EKG Measurement Heart [id number] Normal sinus rhythm Left ventricular hypertrophy with repolarization abnormality Abnormal ECG
--- NOTE | 2018-01-11 16:34 | Nephrology Progress Note ---
Assessment/Plan Problem List: (1) CHF (congestive heart failure) (2) ROSA M (acute kidney injury) (3) Cardiac arrest (4) NSTEMI (non-ST elevated myocardial infarction) (5) CHF exacerbation Plan stop bumex drip, grave prognosis, coma no better, rosa m with stable renal function , nonoliguric cxr clear Subjective ROS Limited/Unobtainable: Yes Objective Objective Last 24 Hour Vital Signs Date Time Temp Pulse Resp B/P (MAP) Pulse Ox O2 Delivery O2 Flow Rate FiO2 01/11/18 16:00 40 01/11/18 15:21 56 20 40 01/11/18 13:01 57 16 40 01/11/18 13:00 57 16 142/64 100 Mechanical Ventilator 40 01/11/18 12:00 40 01/11/18 12:00 100.0 56 15 127/66 100 Mechanical Ventilator 40 100.0 01/11/18 12:00 57 01/11/18 11:00 59 15 119/58 100 Mechanical Ventilator 40 01/11/18 10:36 59 20 40 01/11/18 10:00 62 19 158/62 100 Mechanical Ventilator 40 01/11/18 09:48 62 151/63 01/11/18 09:28 63 18 40 01/11/18 09:00 61 16 158/62 100 Mechanical Ventilator 40 01/11/18 08:00 97.4 56 15 151/63 100 Mechanical Ventilator 60 97.4 01/11/18 08:00 56 01/11/18 08:00 60 01/11/18 07:29 56 17 60 01/11/18 07:00 56 18 171/70 100 Mechanical Ventilator 60 01/11/18 06:00 57 17 179/69 100 Mechanical Ventilator 60 01/11/18 05:04 59 17 60 01/11/18 05:00 58 16 185/77 100 Mechanical Ventilator 60 01/11/18 04:00 97.5 59 17 156/61 100 Mechanical Ventilator 60 97.5 01/11/18 04:00 60 01/11/18 04:00 59 01/11/18 03:00 62 19 156/59 100 Mechanical Ventilator 60 01/11/18 02:46 61 18 60 01/11/18 02:00 62 19 155/60 100 Mechanical Ventilator 60 01/11/18 01:00 64 19 146/59 100 Mechanical Ventilator 60 01/11/18 00:55 62 18 60 01/11/18 00:00 60 01/11/18 00:00 61 01/11/18 00:00 101.7 61 17 128/60 100 Mechanical Ventilator 60 101.7 01/10/18 23:00 61 17 141/55 100 Mechanical Ventilator 60 01/10/18 22:42 62 17 60 01/10/18 22:00 61 17 139/60 100 Mechanical Ventilator 60 01/10/18 21:17 62 18 60 01/10/18 21:00 60 17 161/58 100 Mechanical Ventilator 60 01/10/18 20:30 60 17 159/60 100 Mechanical Ventilator 60 01/10/18 20:00 100.5 61 19 164/62 100 Mechanical Ventilator 60 100.5 01/10/18 20:00 62 01/10/18 20:00 60 01/10/18 19:30 56 16 149/60 100 Mechanical Ventilator 60 01/10/18 19:18 55 16 60 01/10/18 19:00 57 16 155/64 100 Mechanical Ventilator 60 01/10/18 18:33 144/63 01/10/18 18:00 99.6 57 16 164/59 100 Mechanical Ventilator 60 99.6 01/10/18 17:00 99.4 54 15 133/74 100 Mechanical Ventilator 60 99.4 Intake and Output 01/10/18 01/11/18 19:00 07:00 Intake Total 860 ml 750 ml Output Total 820 ml 1170 ml Balance 40 ml -420 ml IV Total 620 ml 510 ml Tube Feeding 240 ml 240 ml Output Urine Total 820 ml 1170 ml Laboratory Tests 01/11/18 05:20: Sodium Level 134L, Potassium Level 4.2, Chloride Level 96L, Carbon Dioxide Level 28, Anion Gap 10, Blood Urea Nitrogen 74H, Creatinine 3.2H, Estimat Glomerular Filtration Rate 19.5, Glucose Level 479#H, Calcium Level 8.5 Height (Feet): 5 Height (Inches): 4.00 Weight (Pounds): 174 General Appearance: other - ett Neck: normal alignment Cardiovascular: regular rhythm Respiratory/Chest: lungs clear Abdomen: soft Extremities: other - no edema Neurologic: unresponsive KEILA KHAN January 11, 2018 16:34
--- NOTE | 2018-01-11 17:16 | Neurology Progress Note ---
Interim History Interim History Interim History Mr. Salas Ellington continues to be unresponsive. He opens and closes his eyes spontaneously but not on command. There has been no change in his neurologic condition. He has stopped decerebrating. His myoclonic jerks have also stopped. He is still on a ventilator for respiratory support. He is being fed via an NGT. His is afebrile. His family has decided to change his level of care to comfort care and extubation. Review of Systems Neuro Review of Systems Unable to obtain. Objective Physical Exam Last Vital Signs Date Time Temp Pulse Resp B/P (MAP) Pulse Ox O2 Delivery O2 Flow Rate FiO2 01/11/18 16:59 89 18 40 01/11/18 13:00 142/64 100 Mechanical Ventilator 01/11/18 12:00 100.0 100.0 01/05/18 18:15 2.0 Laboratory Tests Test 01/11/18 05:20 Sodium Level 134 MMOL/L (136-145) L Potassium Level 4.2 MMOL/L (3.5-5.1) Chloride Level 96 MMOL/L (98-107) L Carbon Dioxide Level 28 MMOL/L (21-32) Anion Gap 10 mmol/L (5-15) Blood Urea Nitrogen 74 mg/dL (7-18) H Creatinine 3.2 MG/DL (0.55-1.30) H Estimat Glomerular Filtration Rate 19.5 mL/min (>60) Glucose Level 479 MG/DL (74-106) #H Calcium Level 8.5 MG/DL (8.5-10.1) Neurologic Exam Objective PHYSICAL EXAMINATION: GENERAL: He is a well-developed, relatively well-nourished, gentleman , lying in an ICU bed, connected to a ventilator via an oral tracheal tube. HEAD: Normocephalic and atraumatic. EENT: Examination benign. NECK: No neck rigidity was observed. NEUROLOGIC EXAMINATION: MENTAL STATUS EXAMINATION: He was comatose and did not respond even to deep painful stimuli. Further mental status testing was impossible. He did, however, exhibit reflex withdrawal of both lower extremities on deep pain. SPEECH: Could not be tested. LANGUAGE: Could not be tested. CRANIAL NERVE EXAMINATION: II: He did not blink to threat. III, IV & : The external ocular movements were present, but significantly diminished on oculocephalic maneuvers. The pupils were 3 mm in diameter and nonreactive. V & VII: The corneal reflexes were present bilaterally. VIII: He did not respond to sounds and had no nystagmus. IX & X: The gag reflex was absent on manipulating the endotracheal tube. XI: The sternocleidomastoids and trapezii did not function. XII: Could not be tested. MOTOR SYSTEM: The tone was normal in all four extremities. Examination of muscle mass revealed no focal wasting. Examination of power could not be performed because even on applying deep painful stimuli, he only withdrew in his lower extremities reflexly and no movements were seen in the upper extremities. SENSORY EXAMINATION: He did respond to deep pain at the spinal level in the lower extremities only. REFLEXES: 2+ and bilaterally symmetrical at the biceps, triceps, brachioradialis, and knees. 0 at both ankles. The plantar responses were extensor bilaterally. COORDINATION, STANCE & GAIT: Could not be tested. ABNORMAL MOVEMENTS: None. Impression/Recommendations Diagnostic Impression 1. Mr. Ibrahima Ellington is a 67-year-old, right-handed, gentleman, who does have a past history of hypertension, diabetes mellitus, dyslipidemia, benign prostatic hypertrophy, neuropathy, gallstones, and pancreatitis, who was hospitalized on 01/05/2018 for urinary sepsis and a possible acute myocardial infarction. In the early hours of 01/06/2018, he was noted to be bradycardic following a bout of nausea and vomiting and then became unresponsive. A Code Blue was called and he had to be intubated, had chest compressions, had to be given epinephrine, and then there was a return of pulse and blood pressure. There was an 8-minute period, where a blood pressure and pulse could not be recorded. Since then, the patient has been comatose and had been exhibiting some abnormal movements, which were labeled seizures. 2. He continues to be unresponsive. There has been no significant change in his condition. He has stopped decerebrating. His myoclonic jerks have also stopped. He is still on a ventilator for respiratory support. He is being fed via an NGT. His family has decided to se[place]illa his level of care to comfort cane with extubation. 3. On neurological examination, at this time, he is unresponsive and only responds to deep pain with reflex withdrawal in both lower extremities. He does have minimal eye movements on oculocephalic maneuvers and subdued corneal reflexes bilaterally. He does not respond to pain in the upper extremities and withdraws his lower extremities to deep pain. His deep tendon reflexes are physiological and he exhibits extensor plantar responses bilaterally. 4. His laboratory data on my initial evaluation revealed a WBC count elevated at 16,400 and anemia with a hemoglobin of 10.8. Sodium at 135, BUN elevated at 24 with a creatinine of 1.5, and glucose elevated at 275. Hemoglobin A1c at 12.3%. Lactic acidosis at 6.8. Elevated liver function tests. Elevated troponins. Low albumin at 2.2. High TSH at 4.29. His urinalysis reveals 1+ leukocyte esterase and 2-4 red blood cells and 2-4 white blood cells per high- power field. His arterial blood gas performed at 09:12 hours on 01/06/18 revealed a pH of 7.27, a pCO2 of 31.9, and a pO2 of 60.4. 5. The EEG revealed signs of a moderately severe encephalopathy and no reactivity to external stimuli. However, no inter-ictal or ictal discharges were seen. 6. The CT of the brain done on 01/08/18 reveals no acute intracranial pathology with perhaps some generalized cerebral edema - official results pending. 7. 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 8. His myoclonus has resolved, however he is still severely encephalopathic. 9. The prognosis for recovery of neurologic function is poor and there has been no improvement in function > 5 days following the brain insult. Recommendations 1. Agree with comfort care with extubation. 2. Continue Keppra 500 mg IV q.12 hours. 3. Family consoled. 4. Keep comfortable. Jose C Corey M.D., M.S.P.H. JOSE C COREY January 11, 2018 17:16
[2018-01-11] MEDS: Lyrica 75mg cap ORAL SCH (17:17)
--- NOTE | 2018-01-11 18:03 | Infectious Diseases Prog Note ---
Assessment/Plan Assessment/Plan ASSESSMENT AND PLAN: 1. 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 uti, alfonzo, respiratory failure, s/p code, ? aspiration pna/HCAP vs edema, poorly responsive - terminal extubation done - zosyn and zyvox - consider discontinue abx - will sign off 2. Status post cystoscopy. 3. Diabetes. 4. Hypertension. 5. Hyperlipidemia. 6. Benign prostatic hypertrophy. 7. Neuropathy. 8. History of gallstone pancreatitis. 9. Allergies are negative. 10. Family history is noncontributory. 11. Social history is negative. 12. MAR was noted. 13. Case was discussed with RN. 14. Case was discussed with Dr. Priest. 15. Case was discussed with the patient and family member. 16. Notes and records were reviewed. 17. MAR was noted. 18. Orders were entered. Subjective Constitutional: Reports: fever, other - extubated, nad HEENT: Denies: congestion Respiratory: Denies: shortness of breath Cardiovascular: Denies: chest pain Gastrointestinal/Abdominal: Denies: nausea, vomiting, diarrhea Genitourinary: Reports: other - + f Neurologic: Denies: headache Skin: Denies: rash Hematologic: Denies: bleeding Musculoskeletal: Denies: pain Allergies: Coded Allergies: No Known Allergies (Verified , 09/15/17) Objective Vital Signs Last 24 Hour Vital Signs Date Time Temp Pulse Resp B/P (MAP) Pulse Ox O2 Delivery O2 Flow Rate FiO2 01/11/18 17:44 100 Nasal Cannula 4.0 36 01/11/18 17:42 Nasal Cannula 4.0 36 01/11/18 17:40 Nasal Cannula 4.0 36 01/11/18 16:59 89 18 40 01/11/18 16:00 40 01/11/18 15:21 56 20 40 01/11/18 13:01 57 16 40 01/11/18 13:00 57 16 142/64 100 Mechanical Ventilator 40 01/11/18 12:00 40 01/11/18 12:00 100.0 56 15 127/66 100 Mechanical Ventilator 40 100.0 01/11/18 12:00 57 01/11/18 11:00 59 15 119/58 100 Mechanical Ventilator 40 01/11/18 10:36 59 20 40 01/11/18 10:00 62 19 158/62 100 Mechanical Ventilator 40 01/11/18 09:48 62 151/63 01/11/18 09:28 63 18 40 01/11/18 09:00 61 16 158/62 100 Mechanical Ventilator 40 01/11/18 08:00 97.4 56 15 151/63 100 Mechanical Ventilator 60 97.4 01/11/18 08:00 56 01/11/18 08:00 60 01/11/18 07:29 56 17 60 01/11/18 07:00 56 18 171/70 100 Mechanical Ventilator 60 01/11/18 06:00 57 17 179/69 100 Mechanical Ventilator 60 01/11/18 05:04 59 17 60 01/11/18 05:00 58 16 185/77 100 Mechanical Ventilator 60 01/11/18 04:00 97.5 59 17 156/61 100 Mechanical Ventilator 60 97.5 01/11/18 04:00 60 01/11/18 04:00 59 01/11/18 03:00 62 19 156/59 100 Mechanical Ventilator 60 01/11/18 02:46 61 18 60 01/11/18 02:00 62 19 155/60 100 Mechanical Ventilator 60 01/11/18 01:00 64 19 146/59 100 Mechanical Ventilator 60 01/11/18 00:55 62 18 60 01/11/18 00:00 60 01/11/18 00:00 61 01/11/18 00:00 101.7 61 17 128/60 100 Mechanical Ventilator 60 101.7 01/10/18 23:00 61 17 141/55 100 Mechanical Ventilator 60 01/10/18 22:42 62 17 60 01/10/18 22:00 61 17 139/60 100 Mechanical Ventilator 60 01/10/18 21:17 62 18 60 01/10/18 21:00 60 17 161/58 100 Mechanical Ventilator 60 01/10/18 20:30 60 17 159/60 100 Mechanical Ventilator 60 01/10/18 20:00 100.5 61 19 164/62 100 Mechanical Ventilator 60 100.5 01/10/18 20:00 62 01/10/18 20:00 60 01/10/18 19:30 56 16 149/60 100 Mechanical Ventilator 60 01/10/18 19:18 55 16 60 01/10/18 19:00 57 16 155/64 100 Mechanical Ventilator 60 01/10/18 18:33 144/63 5/8/18 18:00 99.6 57 16 164/59 100 Mechanical Ventilator 60 99.6 Height (Feet): 5 Height (Inches): 4.00 Weight (Pounds): 174 General Appearance: no acute distress HEENT: normocephalic, atraumatic, anicteric, mucous membranes moist Respiratory/Chest: lungs clear, normal breath sounds, no accessory muscle use, respiratory distress Cardiovascular: normal rate, regular rhythm, no gallop/murmur, no JVD Abdomen: normal bowel sounds, soft, non tender, no organomegaly, non distended Genitourinary: other Extremities: no cyanosis Skin: no rash Neurologic/Psychiatric: other - sedated, weak Lymphatic: no neck adenopathy Musculoskeletal: no effusion Objective Chest x-ray - 01/06 Findings: Heart size and mediastinal contours are stable. There is interval endotracheal intubation. Tip of the ET tube below level the clavicles, approximately 4.4 cm above the level of the patsy. Enteric tube tip in the proximal stomach. Side port at the GE junction. There are perihilar interstitial opacities, increased from the prior exam possibly related to pulmonary edema. No definite pleural effusion. No pneumothorax. Impression: Satisfactory endotracheal intubation. Enteric tube tip in the stomach. Interval worsening of interstitial and probably perihilar airspace opacities thought to related to pulmonary edema. Superimposed pneumonia not entirely excluded. Clinical correlation and follow-up exam recommended. This corresponds with the statrad preliminary report. Chest x-ray - pulmonary edema 01/10 - chest x-ray - nad (report noted) Microbiology Date/Time Source Procedure Growth Status 01/09/18 15:30 Blood Blood Culture - Preliminary NO GROWTH AFTER 24 HOURS Resulted 01/07/18 19:00 Sputum Induced Gram Stain - Final Complete 01/07/18 19:00 Sputum Culture - Final Nuvia Albicans Complete 01/07/18 19:00 Indwelling Cath Urine Culture - Final NO GROWTH AFTER 48 HOURS Complete Microbiology Date/Time Source Procedure Growth Status 01/09/18 15:30 Blood Blood Culture - Preliminary NO GROWTH AFTER 24 HOURS Resulted 01/09/18 15:00 Blood Blood Culture - Preliminary NO GROWTH AFTER 24 HOURS Resulted Labs Test 01/09/18 04:00 01/09/18 22:19 01/10/18 04:00 01/11/18 05:20 White Blood Count 13.8 K/UL (4.8-10.8) 13.7 K/UL (4.8-10.8) Red Blood Count 4.73 M/UL (4.70-6.10) 4.77 M/UL (4.70-6.10) Hemoglobin 13.3 G/DL (14.2-18.0) 14.4 G/DL (14.2-18.0) Hematocrit 39.2 % (42.0-52.0) 40.0 % (42.0-52.0) Mean Corpuscular Volume 83 FL (80-99) 84 FL (80-99) Mean Corpuscular Hemoglobin 28.2 PG (27.0-31.0) 30.3 PG (27.0-31.0) Mean Corpuscular Hemoglobin Concent 34.0 G/DL (32.0-36.0) 36.1 G/DL (32.0-36.0) Red Cell Distribution Width 13.1 % (11.6-14.8) 13.2 % (11.6-14.8) Platelet Count 194 K/UL (150-450) 191 K/UL (150-450) Mean Platelet Volume 8.3 FL (6.5-10.1) 8.8 FL (6.5-10.1) Neutrophils (%) (Auto) 74.6 % (45.0-75.0) 68.5 % (45.0-75.0) Lymphocytes (%) (Auto) 15.2 % (20.0-45.0) 17.0 % (20.0-45.0) Monocytes (%) (Auto) 9.0 % (1.0-10.0) 12.3 % (1.0-10.0) Eosinophils (%) (Auto) 0.4 % (0.0-3.0) 0.9 % (0.0-3.0) Basophils (%) (Auto) 0.8 % (0.0-2.0) 1.3 % (0.0-2.0) Arterial Blood pH 7.500 (7.350-7.450) 7.573 (7.350-7.450) Arterial Blood Partial Pressure CO2 33.4 mmHg (35.0-45.0) 29.0 mmHg (35.0-45.0) Arterial Blood Partial Pressure O2 147.4 mmHg (75.0-100.0) 57.3 mmHg (75.0-100.0) Arterial Blood HCO3 25.5 mmol/L (22.0-26.0) 26.2 mmol/L (22.0-26.0) Arterial Blood Oxygen Saturation 98.9 % (92.0-98.0) 91.7 % (92.0-98.0) Arterial Blood Base Excess 2.7 4.9 Chavo Test Positive Positive Sodium Level 133 MMOL/L (136-145) 137 MMOL/L (136-145) 134 MMOL/L (136-145) Potassium Level 3.0 MMOL/L (3.5-5.1) 4.3 MMOL/L (3.5-5.1) 4.2 MMOL/L (3.5-5.1) Chloride Level 96 MMOL/L (98-107) 98 MMOL/L (98-107) 96 MMOL/L (98-107) Carbon Dioxide Level 25 MMOL/L (21-32) 29 MMOL/L (21-32) 28 MMOL/L (21-32) Anion Gap 12 mmol/L (5-15) 11 mmol/L (5-15) 10 mmol/L (5-15) Blood Urea Nitrogen 60 mg/dL (7-18) 66 mg/dL (7-18) 74 mg/dL (7-18) Creatinine 3.7 MG/DL (0.55-1.30) 3.3 MG/DL (0.55-1.30) 3.2 MG/DL (0.55-1.30) Estimat Glomerular Filtration Rate 16.5 mL/min (>60) 18.8 mL/min (>60) 19.5 mL/min (>60) Glucose Level 359 MG/DL (74-106) 280 MG/DL (74-106) 479 MG/DL (74-106) Calcium Level 7.8 MG/DL (8.5-10.1) 7.8 MG/DL (8.5-10.1) 8.5 MG/DL (8.5-10.1) Magnesium Level 1.7 MG/DL (1.8-2.4) Total Bilirubin 1.5 MG/DL (0.2-1.0) 1.5 MG/DL (0.2-1.0) Direct Bilirubin 0.8 MG/DL (0.0-0.3) 1.0 MG/DL (0.0-0.3) Aspartate Amino Transf (AST/SGOT) 190 U/L (15-37) 269 U/L (15-37) Alanine Aminotransferase (ALT/SGPT) 384 U/L (12-78) 380 U/L (12-78) Alkaline Phosphatase 199 U/L (46-116) 241 U/L (46-116) Pro-B-Type Natriuretic Peptide 65912 pg/mL (0-125) Total Protein 7.0 G/DL (6.4-8.2) 6.5 G/DL (6.4-8.2) Albumin 1.8 G/DL (3.4-5.0) 1.9 G/DL (3.4-5.0) Lipase 343 U/L (73-393) Lactic Acid Level 2.50 mmol/L (0.66-2.22) Troponin I 2.130 ng/mL (0.000-0.056) Globulin 4.6 g/dL Albumin/Globulin Ratio 0.4 (1.0-2.7) Laboratory Tests Test 01/11/18 05:20 Sodium Level 134 MMOL/L (136-145) L Potassium Level 4.2 MMOL/L (3.5-5.1) Chloride Level 96 MMOL/L (98-107) L Carbon Dioxide Level 28 MMOL/L (21-32) Anion Gap 10 mmol/L (5-15) Blood Urea Nitrogen 74 mg/dL (7-18) H Creatinine 3.2 MG/DL (0.55-1.30) H Estimat Glomerular Filtration Rate 19.5 mL/min (>60) Glucose Level 479 MG/DL (74-106) #H Calcium Level 8.5 MG/DL (8.5-10.1) Current Medications Medications (Trade) Dose Ordered Sig/Tyrell Route PRN Reason Start Time Stop Time Status Last Admin Dose Admin Acetaminophen (Tylenol) 650 mg Q6H PRN GT Mild Pain/Temp > 100.5 01/06/18 11:15 02/05/18 11:14 01/07/18 15:02 Aspirin (ASA) 81 mg DAILY ORAL 01/06/18 09:00 02/05/18 08:59 01/11/18 09:48 Atenolol (Tenormin) 25 mg DAILY ORAL 01/10/18 09:00 02/09/18 08:59 01/11/18 09:48 Atorvastatin Calcium (Lipitor) 20 mg BEDTIME ORAL 01/06/18 21:00 02/05/18 20:59 01/10/18 21:09 Calcium Carbonate (Tums) 500 mg BID PRN ORAL HEARTBURN 01/06/18 09:00 02/04/18 19:03 Chlorhexidine Gluconate (Debi-Hex 2%) 1 applic DAILY@2000 TOPIC 01/06/18 20:00 02/05/18 19:59 01/10/18 21:08 Dextrose (Dextrose 50%) 25 ml STAT PRN IV Hypoglycemia 01/08/18 07:00 02/07/18 06:59 Dextrose (Dextrose 50%) 50 ml STAT PRN IV Hypoglycemia 01/08/18 07:00 02/07/18 06:59 Dorzolamide HCl (Trusopt) 1 drop TID BOTH EYES 01/06/18 09:00 02/04/18 17:59 01/11/18 14:25 Enoxaparin Sodium (Lovenox) 70 mg DAILY SUBQ 01/08/18 09:00 02/07/18 08:59 01/11/18 10:21 Famotidine (Pepcid) 20 mg BEDTIME ORAL 01/06/18 21:00 02/04/18 20:59 01/10/18 21:09 Insulin Aspart (NovoLOG) EVERY 6 HOURS SUBQ 01/08/18 12:00 02/07/18 11:59 01/11/18 17:19 Levetiracetam 100 ml @ 400 mls/hr Q12HR IVPB 01/06/18 21:00 02/05/18 20:59 01/11/18 10:22 Linezolid 300 ml @ 300 mls/hr Q12H IVPB 01/07/18 15:30 01/14/18 15:29 01/11/18 16:10 Ondansetron HCl (Zofran) 4 mg Q6H PRN IVP Nausea & Vomiting 01/06/18 07:15 02/04/18 19:07 Piperacillin Sod/ Tazobactam Sod 3.375 gm/Sodium Chloride 110 ml @ 27.5 mls/hr EVERY 8 HOURS IVPB 01/11/18 14:00 01/16/18 13:59 01/11/18 14:25 Pregabalin (Lyrica) 150 mg DAILY@1700 ORAL 01/06/18 17:00 02/05/18 16:59 01/11/18 17:17 TRES AL January 11, 2018 18:03
[2018-01-11] MEDS: Morphine Sulfate 4mg/ml Inj IVP PRN (18:37)
[2018-01-11] MEDS: Dyna-Hex 2% Top Sol 2oz TOPIC SCH (19:44)
[2018-01-11] MEDS: Atorvastatin 20mg tab ORAL SCH (20:56)
[2018-01-12] VITALS (11 sets, daily range): BP systolic 64–158; BP diastolic 41–70
--- NOTE | 2018-01-12 03:00 | Progress Note ---
DATE: 01/11/2018 CARDIOLOGY PROGRESS NOTE SUBJECTIVE: Case was discussed with family members and Dr. Priest. The patient was seen by the neurologist. He remains comatose. No improvement in clinical parameters is seen. Family members have requested terminal extubation. OBJECTIVE: VITAL SIGNS: Blood pressure 127/59, pulse 55, and respirations 16. NECK: Supple. LUNGS: Few rhonchi. Orally intubated. HEART: Regular rhythm and rate. Normal S1, S2. EXTREMITIES: Trace edema. LABORATORY DATA: Reviewed. IMPRESSION: 1. Status post cardiopulmonary arrest. 2. Anoxic encephalopathy. 3. Respiratory failure. 4. Acute myocardial infarction. 5. Sepsis with shock, recovering. 6. Poor prognosis due to impaired neurologic function. PLAN: Comfort care. I have personally performed terminal extubation with the respiratory therapist. The patient's was allowed to stay at bedside. Family members were all present in the intensive care unit as well. All parties were in agreement with plan. Comfort care is to be initiated at this time. Yosef England M.D. DR: ROWENA JOB#: [id number] CC:
[2018-01-12] MEDS: Morphine Sulfate 4mg/ml Inj IVP PRN ×3 (03:44→09:29)
[2018-01-12] MEDS: Zosyn 3.375gm q8h **Extended infusion IVPB SCH ×2 (05:41)
[2018-01-12] MEDS: NovoLOG Insulin Flexpen SUBQ SCH (05:49)
[2018-01-12] MEDS: Aspirin Baby 81mg ORAL SCH (09:04)
[2018-01-12] MEDS: levETIRAcetam 500mg/NS100ml 100 ML IVPB SCH (09:04)
[2018-01-12] MEDS: Dorzolamide 2% 10ml Btl BOTH EYES SCH (09:05)
[2018-01-12] MEDS: Atenolol 25mg tab ORAL SCH (09:05)
[2018-01-12] MEDS: Enoxaparin Sodium 300mg/3ml vial SUBQ SCH (09:06)
[2018-01-12] MEDS ORDERED: Tubing IV Secondary IV ONE (11:35)
--- NOTE | 2018-01-12 11:57 | Diagnostic Imaging Report ---
INDICATION: Pain COMPARISON: Chest x-ray dated 01/06/18 FINDINGS: Single frontal view demonstrates endotracheal tube 4.6 cm above the patsy. Nasogastric tube in place. Opacification of bilateral lower lobes, slightly increased from prior exam. The visualized osseous structures are within normal limits. IMPRESSION: Endotracheal tube 4.6 cm above the patsy. Nasogastric tube in place. Opacification of bilateral lower lobes, slightly increased from prior exam.
--- NOTE | 2018-01-12 11:57 | Diagnostic Imaging Report ---
EXAM: XR Chest, 1 View CLINICAL HISTORY: INFECT TECHNIQUE: Frontal view of the chest. COMPARISON: cxr 01/07/18 0930 FINDINGS: Lungs: Bilateral perihilar air space opacities slightly improved. Pleural space: Tiny bilateral pleural effusion. No pneumothorax. Heart: Cardiomegaly. Mediastinum: Unremarkable. Bones/joints: Unremarkable. Tubes, lines and devices: ETT 3.6 cm tip above the patsy. NG tube stable. IMPRESSION: 1. Bilateral perihilar air space opacities slightly improved. 2. Tiny bilateral pleural effusion, similar to prior.
--- NOTE | 2018-01-12 19:37 | Cardiology Report ---
APPROVED REPORT EKG Measurement Heart [id number] [id number] Sinus bradycardia Left axis deviation Moderate voltage criteria for LVH, may be normal variant Cannot rule out Septal infarct, age undetermined Abnormal ECG
--- NOTE | 2018-01-13 15:29 | Discharge Summary ---
Estelle Fairbanks [employer] EXECUTIVE DIRECTOR 01/13/18 1529: Discharge Summary Discharge Summary Discharge Summary DATE OF ADMISSION: 01/05/2018 DATE OF DISCHARGE: 01/12/2018 CONSULTANTS: Dr. Yosef Domingo BRIEF SUMMARY: Patient is an unfortunate 67-year-old [place] male, who came to the emergency department from home. Apparently he had a cystoscopy 3 days prior and had dysuria. On the morning of admission, he developed shortness of breath with associated shaking, fever, vomiting and profuse diaphoresis. He has medical history significant for diabetes, hypertension, hyperlipidemia, BPH, neuropathy , gallstones, and history of pancreatitis. On evaluation at ED, blood work with WBC 10.6, hemoglobin 11.5, lactic acid 2.4. Troponin was elevated to 2.5, BNP 3404. EKG was sinus rhythm with nonspecific ST to T wave changes and possible septal infarction of indeterminate age. Coagulation was normal. He had a chest x-ray that showed minimal atelectasis. He was unable to provide urine. Schroeder catheter was placed. He was given aspirin and Plavix. He was started on Levaquin. He had multiple risk factors for premature coronary artery disease. He was then admitted for evaluation of urinary sepsis and acute AR. He was followed by infectious disease specialist. That was febrile temperature 102. He was given Zosyn and vancomycin. Cardiac status was monitored. He was continued on aspirin urine. He was given Norvasc and additional beta blockade. Echocardiogram done showed EF 35%. On 01/06/2018, patient had vomiting, became bradycardic and then asystolic. CAYDEN EATON was called. He was already intubated and was transferred to ICU. A triple-lumen catheter was inserted through the right femoral vein. Post code, he was noted to have seizure-like episodes. He was unresponsive/comatose and was noted to have decerebrate posturing. Neurologist was consulted. He was started on anticonvulsants. Head CT showed apparent loss of de leon-white differentiation perhaps some generalized cerebral edema. No acute intracranial pathology. EEG showed moderately severe encephalopathy and no reactivity toexternal stimuli. 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 There has been no improvement in function for more than 72 hours following the brain insult. Prognosis for recovery of neurologic function is poor. Blood culture with Escherichia coli and coagulase-negative staph, possible contaminant. Vancomycin was discontinued. He was given Zosyn and Zyvox. Patient developed acute kidney injury, he was started on Bumex drip. He remained intubated and comatose with prognosis terminal. Per family wishes patient was terminally extubated. He eventually . FINAL DIAGNOSES: Acute myocardial infarct Status post cardiorespiratory arrest Anoxic encephalopathy Sepsis with bacteremia, blood culture with Escherichia coli Diabetes mellitus out of control Hypertension, now hypotension Hyperlipidemia Acute respiratory failure requiring intubation Acute kidney injury Hepatic disorder, shock liver Cerebral edema Acute on chronic systolic and diastolic congestive heart failure Possible apical thrombus Hypomagnesemia Terminal care/palliative care DISPOSITION: Patient . I have been assigned to dictate discharge summary on this account, and I was not involved in the patient's management. Shreyas Priest MD 01/16/18 0835: Estelle Fairbanks NP January 13, 2018 15:29 Shreyas Priest MD January 16, 2018 08:35
== END 2018-01-12 11:36 | disposition expired | DRG 870 ==
LOC: EDBEDREQ 15:10 → EDBEDREQSVC 15:10 → EMR 16:06 → 2E 16:15 → EDBEDREQ 16:32 → ICU 01-06 03:04
DX: A41.51 Sepsis due to Escherichia coli [E. coli] (principal); I21.4 Non-ST elevation (NSTEMI) myocardial infarction; R65.21 Severe sepsis with septic shock; I50.43 Acute on chronic combined systolic (congestive) and diastolic (congestive) heart failure; J96.01 Acute respiratory failure with hypoxia; R40.20 Unspecified coma; K72.00 Acute and subacute hepatic failure without coma; N39.0 Urinary tract infection, site not specified; G93.1 Anoxic brain damage, not elsewhere classified; N17.9 Acute kidney failure, unspecified; I42.9 Cardiomyopathy, unspecified; I11.0 Hypertensive heart disease with heart failure; E11.65 Type 2 diabetes mellitus with hyperglycemia; N40.0 Benign prostatic hyperplasia without lower urinary tract symptoms; E78.5 Hyperlipidemia, unspecified; E87.6 Hypokalemia; E83.42 Hypomagnesemia; R00.1 Bradycardia, unspecified; Z51.5 Encounter for palliative care
CPT/HCPCS: 36415; 36600; 70450; 71045; 76700; 80048; 80053; 80061; 80076; 80185; 81003; 82150; 82248; 82550; 82553; 82570; 82803; 82962; 83036; 83605; 83690; 83735; 83880; 84100; 84153; 84300; 84443; 84484; 85007; 85025; 85610; 85730; 86140; 86710; 87040; 87070; 87086; 87181; 87205; 93005; 93306; 94002; 94003; 94760; 95819; 99285; 99291; J1165; J1815; J2405; J8499